=== PATIENT | female | born 1950 | race Asian ===

== ENCOUNTER 2023-06-15 14:02 | Inpatient (IN) | payer OTHER ==
[2023-06-15] VITALS (10 sets, daily range): BP systolic 119–143; BP diastolic 66–82; O2SAT 91–97
[~2023-06-15] VITALS: Ht 157.5 cm; Wt 54.0 kg
[2023-06-15] MEDS ORDERED: IV NS 0.9% 1,000 ML BAG IV ONE (14:30)
[2023-06-15] MEDS ORDERED: CEFTRIAXONE 1GM BAG (ER ONLY) 50 ML IV ONE (14:41)
[2023-06-15] MEDS ORDERED: TRIA1CAP20 PO (14:51)
[2023-06-15] MEDS ORDERED: PRAV10TA40 PO (14:51)
[2023-06-15] MEDS ORDERED: AMLO10TA4 PO (14:51)
[2023-06-15] MEDS ORDERED: GLIP5TAB13 PO (14:51)
[2023-06-15] MEDS ORDERED: CEFTRIAXONE 1GM BAG (ER ONLY) 1 GM/50 ML PIGGYBACK IV ONE (15:00)
[2023-06-15] MEDS ORDERED: AZITHROMYCIN 500 MG in IV D5W 250 ML IV ONE (15:00)
[2023-06-15 15:18] LABS: BASOPHILS % (AUTO) 0.2 % (0.0-2.0); HEMATOCRIT 28 % (33-45); HEMOGLOBIN 9.3 g/dL (11.5-14.8); LYMPHOCYTES # (AUTO) 0.7 K/uL (0.8-4.8); LYMPHOCYTES % (AUTO) 4.5 % (20.0-44.0); MEAN CORPUSCULAR HEMOGLOBIN 29 PG (26.0-33.0); MEAN CORPUSCULAR HGB CONC 33 g/dl (31.0-36.0); MEAN CORPUSCULAR VOLUME 90 fL (82-100); MONOCYTES # (AUTO) 0.8 K/uL (0.1-1.30); MONOCYTES % (AUTO) 5.4 % (2.0-12.0); NEUTROPHILS # (AUTO) 13.3 K/uL (1.8-8.9); NEUTROPHILS % (AUTO) 89.9 % (43.0-81.0); PLATELET COUNT (AUTO) 304 K/uL (150-450); RED BLOOD CELL COUNT(AUTO) 3.16 MIL/uL (4.0-5.2); RED CELL DISTRIBUTION WIDTH 12.7 % (11.5-15.0); WHITE BLOOD COUNT (AUTO) 14.8 K/uL (4.3-11.0)
[2023-06-15 15:32] LABS: INR 0.99 (0.91-1.10); PARTIAL THROMBOPLASTIN TIME 30.7 SEC (24.3-34.3); PROTHROMBIN TIME 10.5 SECS (9.2-11.1)
[2023-06-15 15:45] LABS: CALCIUM, SERUM 8.7 mg/dL (8.5-10.1); CARBON DIOXIDE 14 mmol/L (21-32); CHLORIDE 98 mmol/L (98-107); CREATININE 6.5 mg/dL (0.6-1.3); POTASSIUM 5.3 mmol/L (3.5-5.1); SODIUM SERUM 128 mmol/L (136-145); UREA NITROGEN, BLOOD 78 mg/dL (7-18)
[2023-06-15 15:57] LABS: ALANINE AMINOTRANSFERASE 15 U/L (12-78); ALKALINE PHOSPHATASE 131 U/L (46-116); ASPARTATE AMINOTRANSFERASE 17 U/L (15-37); BILIRUBIN,DIRECT 0.2 mg/dL (0.0-0.2); BILIRUBIN,TOTAL 0.7 mg/dL (0.2-1.0); GLUCOSE 591 mg/dL (74-106); TOTAL PROTEIN, SERUM 7.8 g/dL (6.4-8.2)
[2023-06-15] MEDS ORDERED: INSULIN REGULAR, HUMAN 100 UNIT/ML 10 ML VIAL IV ONE (16:30)
[2023-06-15] MEDS ORDERED: INSULIN REGULAR, HUMAN 100 UNIT/ML 10 ML VIAL ONE (16:39)
[2023-06-15] MEDS ORDERED: LEVOFLOXACIN 750 MG /D5W 150ML 150 ML IV SCH (17:00)
[2023-06-15] MEDS ORDERED: HEPARIN SODIUM, PORCINE 5000 UNITS/1 ML VIAL SQ SCH ×2 (17:00→21:00)
[2023-06-15] MEDS ORDERED: IV NS 0.9% 500 ML IV PRN (17:00)
[2023-06-15 17:09] LABS: ABG BASE EXCESS -15.8 mmol/L; ABG OXYGEN SATURATION 95.6 % (92.0-98.5); ABG PCO2 32.3 mmHg (35.0-45.0); ABG PH 7.169 (7.350-7.450); ABG PO2 98.9 mmHg (75.0-100.0); ABG TOTAL HEMOGLOBIN 8.3 G/dL (12.0-16.0); COHb 0.3 % (0.5-1.5); MetHb 0.2 % (0.0-1.5); O2Hb 95.1 % (94.0-97.0); SITE, ABG Right Radial
[2023-06-15] MEDS ORDERED: ACETAMINOPHEN 325 MG TABLET PO PRN (17:30)
[2023-06-15] MEDS ORDERED: BLOOD SUGAR DIAGNOSTIC 1 EACH STRIP VI SCH (17:30)
[2023-06-15] MEDS ORDERED: ONDANSETRON HCL/PF 4 MG/2 ML VIAL IVP PRN (17:30)
[2023-06-15] MEDS ORDERED: TEMAZEPAM 15 MG CAPSULE PO PRN (17:30)
[2023-06-15] MEDS ORDERED: MAG HYDROX/AL HYDROX/SIMETH 30 ML UDC PO PRN (17:30)
[2023-06-15] MEDS ORDERED: MAGNESIUM HYDROXIDE 30 ML UDC PO PRN (17:30)
[2023-06-15] MEDS ORDERED: Z GUARD REMEDY 4 OZ OINT TP PRN (17:30)
[2023-06-15] MEDS ORDERED: DEXTROSE 50%-WATER 50 ML DISP.SYRIN IV PRN (17:30)
[2023-06-15] MEDS ORDERED: INSULIN REGULAR, HUMAN 100 UNIT/ML 3 ML VIAL SQ PRN (17:30)
[2023-06-15] MEDS ORDERED: MORPHINE SULFATE INJ 2 MG/ML DISP.SYRIN IV PRN (17:30)
[2023-06-15] MEDS ORDERED: HYDROCODONE/APAP 5/325MG TABLET PO PRN (17:30)
[2023-06-15] MEDS: IV NS 0.9% 1,000 ML IV PRN ×2 (20:03→20:38)
[2023-06-15] MEDS ORDERED: DOXYCYCLINE 100 MG in IV D5W 100 ML IV SCH (21:00)
[2023-06-15] MEDS: CEFEPIME 1 GM in IV D5W 50 ML IV SCH (21:28)
[2023-06-15] MEDS: ATORVASTATIN 10 MG TABLET PO SCH (21:28)
[2023-06-15] MEDS: dexaMETHasone SOD PHOSPHATE 10 MG/ML VIAL IV SCH (21:51)
[2023-06-15] MEDS: PANTOPRAZOLE 40 MG VIAL IV SCH (21:51)
[2023-06-15] MEDS ORDERED: ALBUTEROL FS 2.5 MG/0.5 ML VIAL.NEB NEB PRN (22:30)
[2023-06-15] MEDS ORDERED: IPRATROPIUM NEB FS 0.5 MG/2.5 ML AMPUL.NEB NEB PRN (22:30)
[2023-06-15] MEDS: *INSULIN REGULAR(HUMULIN R)HUM 100 UNIT/ML VIAL SQ PRN (22:51)
[2023-06-15 23:25] LABS: CALCIUM, SERUM 8.1 mg/dL (8.5-10.1); CARBON DIOXIDE 13 mmol/L (21-32); CHLORIDE 100 mmol/L (98-107); CREATININE 6.5 mg/dL (0.6-1.3); POTASSIUM 5.8 mmol/L (3.5-5.1); SODIUM SERUM 128 mmol/L (136-145); UREA NITROGEN, BLOOD 76 mg/dL (7-18)
[2023-06-15] MEDS ORDERED: IV NS 0.9% 250 ML IV PRN (23:30)
[2023-06-15 23:38] LABS: GLUCOSE 633 mg/dL (74-106)
[2023-06-16] VITALS (29 sets, daily range): BP systolic 89–143; BP diastolic 47–88; TEMP 97.5–97.9; O2SAT 93–100
[2023-06-16] MEDS ORDERED: INSULIN REGULAR, HUMAN 100 UNIT in IV NS 0.9% 99 ML IV PRN ×2 (00:30)
[2023-06-16] MEDS: IV NS 0.9% 1,000 ML IV SCH ×3 (00:36→20:31)
[2023-06-16 00:44] LABS: ABG OXYGEN SATURATION 93.1 % (92.0-98.5); ABG PCO2 29.3 mmHg (35.0-45.0); ABG PH 7.235 (7.350-7.450); ABG PO2 73.5 mmHg (75.0-100.0); ABG TOTAL HEMOGLOBIN 9.3 G/dL (12.0-16.0); AaDO2 610.2 mmHg; COHb 0.3 % (0.5-1.5); MetHb 0.3 % (0.0-1.5); O2Hb 92.5 % (94.0-97.0); SITE, ABG Left Radial
[2023-06-16] MEDS: BLOOD SUGAR DIAGNOSTIC 1 EACH STRIP IN SCH ×23 (00:45→23:30)
[2023-06-16 03:08] LABS: BASOPHILS # (AUTO) 0.1 K/uL (0.0-0.2); BASOPHILS % (AUTO) 0.4 % (0.0-2.0); HEMATOCRIT 27 % (33-45); HEMOGLOBIN 8.7 g/dL (11.5-14.8); LYMPHOCYTES # (AUTO) 0.8 K/uL (0.8-4.8); LYMPHOCYTES % (AUTO) 3.9 % (20.0-44.0); MEAN CORPUSCULAR HEMOGLOBIN 29 PG (26.0-33.0); MEAN CORPUSCULAR HGB CONC 33 g/dl (31.0-36.0); MEAN CORPUSCULAR VOLUME 89 fL (82-100); MONOCYTES # (AUTO) 0.8 K/uL (0.1-1.30); MONOCYTES % (AUTO) 3.9 % (2.0-12.0); NEUTROPHILS # (AUTO) 18.4 K/uL (1.8-8.9); NEUTROPHILS % (AUTO) 91.8 % (43.0-81.0); PLATELET COUNT (AUTO) 327 K/uL (150-450); RED BLOOD CELL COUNT(AUTO) 3.03 MIL/uL (4.0-5.2); RED CELL DISTRIBUTION WIDTH 12.5 % (11.5-15.0); WHITE BLOOD COUNT (AUTO) 20.1 K/uL (4.3-11.0)
[2023-06-16 03:13] LABS: CALCIUM, SERUM 8.6 mg/dL (8.5-10.1); CARBON DIOXIDE 14 mmol/L (21-32); CHLORIDE 100 mmol/L (98-107); CREATININE 6.7 mg/dL (0.6-1.3); POTASSIUM 5.1 mmol/L (3.5-5.1); SODIUM SERUM 130 mmol/L (136-145)
[2023-06-16 03:14] LABS: GLUCOSE 519 mg/dL (74-106); MAGNESIUM 2.2 mg/dL (1.8-2.4)
[2023-06-16 03:15] LABS: UREA NITROGEN, BLOOD 81 mg/dL (7-18)
[2023-06-16 03:25] LABS: THYROID STIMULATING HORMONE 1.174 uIU/mL (0.358-3.74)
[2023-06-16] MEDS ORDERED: HEPARIN INFUSION/D5W 500 ML IV PRN (05:00)
[2023-06-16] MEDS ORDERED: HEPARIN SODIUM, PORCINE 5000 UNITS/1 ML VIAL IV ONE (05:00)
[2023-06-16 06:10] LABS: CALCIUM, SERUM 8.8 mg/dL (8.5-10.1); CARBON DIOXIDE 12 mmol/L (21-32); CHLORIDE 103 mmol/L (98-107); CREATININE 6.7 mg/dL (0.6-1.3); POTASSIUM 4.9 mmol/L (3.5-5.1); SODIUM SERUM 132 mmol/L (136-145)
[2023-06-16 06:18] LABS: GLUCOSE 389 mg/dL (74-106)
[2023-06-16 06:21] LABS: UREA NITROGEN, BLOOD 80 mg/dL (7-18)
[2023-06-16 06:28] LABS: BAND % (MANUAL) 3 % (0.0-5.0); LYMPHOCYTES % (MANUAL) 7 % (16-48); MONOCYTES % (MANUAL) 5 % (0-11.0); NEUTROPHILS % (MANUAL) 85 (42-76); PLATELET ESTIMATE ADEQUATE
[2023-06-16] MEDS: dexaMETHasone SOD PHOSPHATE 10 MG/ML VIAL IV SCH (08:27)
[2023-06-16] MEDS: PANTOPRAZOLE 40 MG VIAL IV SCH (08:27)
[2023-06-16 08:29] LABS: ABG BASE EXCESS -11.8 mmol/L; ABG OXYGEN SATURATION 91.4 % (92.0-98.5); ABG PCO2 26.2 mmHg (35.0-45.0); ABG PH 7.315 (7.350-7.450); ABG PO2 62.6 mmHg (75.0-100.0); ABG TOTAL HEMOGLOBIN 9.1 G/dL (12.0-16.0); AaDO2 480.3 mmHg; COHb 0.3 % (0.5-1.5); MetHb 0.3 % (0.0-1.5); O2Hb 90.9 % (94.0-97.0); SITE, ABG Right Radial; VENT MODE, BG BIPAP 15/5
[2023-06-16] MEDS: ASPIRIN 81 MG TAB.CHEW PO SCH (09:53)
[2023-06-16] MEDS: NITROGLYCERIN 30 GM TUBE TP SCH ×2 (09:54→20:29)
[2023-06-16] MEDS: AZITHROMYCIN 500 MG in IV D5W 250 ML IV SCH (14:27)
[2023-06-16] MEDS ORDERED: CEFTRIAXONE 1 G in IV D5W 50 ML IV SCH (15:00)
[2023-06-16 19:04] LABS: CALCIUM, SERUM 9.1 mg/dL (8.5-10.1); CARBON DIOXIDE 11 mmol/L (21-32); CHLORIDE 105 mmol/L (98-107); CREATININE 6.8 mg/dL (0.6-1.3); GLUCOSE 191 mg/dL (74-106); POTASSIUM 5.5 mmol/L (3.5-5.1); SODIUM SERUM 133 mmol/L (136-145)
[2023-06-16 19:10] LABS: UREA NITROGEN, BLOOD 83 mg/dL (7-18)
[2023-06-16 19:12] LABS: CREATININE, URINE 106.4 MG/DL (30.0-125.0); URINE TOTAL PROTEIN 193.1 mg/dL (0-11.9)
[2023-06-16 19:14] LABS: APPEARANCE,URINE SLIGHTLY CLOUDY (CLEAR); BILIRUBIN,URINE NEGATIVE (NEGATIVE); BLOOD, URINE 2+ Ery/uL (NEGATIVE); COLOR,URINE YELLOW (YELLOW); KETONES,URINE NEGATIVE (NEGATIVE); LEUKOCYTE ESTERASE ,URINE 3+ (NEGATIVE); NITRITE, URINE NEGATIVE (NEGATIVE); PH,URINE 5.5 (5.0-8.0); PROTEIN,URINE 2+ mg/dl (NEGATIVE); UGLUCOSE TRACE mg/dL (NEGATIVE); UROBILINOGEN,URINE 0.2 EU/dL (0.2)
[2023-06-16 19:27] LABS: ADD URINE CULTURE YES; BACTERIA,URINE 1+ /HPF (None Seen); RBC,URINE 21-50 /HPF (0-2); SQUAMOUS EPITHELIAL CELL,UR Few /HPF (None Seen); WBC,URINE TOO NUMEROUS TO COUN /HPF (0-3)
[2023-06-16] MEDS: CEFEPIME 1 GM in IV D5W 50 ML IV SCH (20:28)
[2023-06-16] MEDS: ATORVASTATIN 10 MG TABLET PO SCH (21:53)
[2023-06-16 22:32] LABS: CALCIUM, SERUM 9.1 mg/dL (8.5-10.1); CARBON DIOXIDE 12 mmol/L (21-32); CHLORIDE 105 mmol/L (98-107); CREATININE 6.9 mg/dL (0.6-1.3); GLUCOSE 202 mg/dL (74-106); POTASSIUM 5.4 mmol/L (3.5-5.1); SODIUM SERUM 135 mmol/L (136-145)
[2023-06-16 23:00] LABS: UREA NITROGEN, BLOOD 85 mg/dL (7-18)
[2023-06-17] VITALS (42 sets, daily range): BP systolic 67–129; BP diastolic 35–112; TEMP 97.8–98.5; O2SAT 92–99
[2023-06-17] MEDS: BLOOD SUGAR DIAGNOSTIC 1 EACH STRIP IN SCH ×16 (00:11→23:38)
[2023-06-17 02:58] LABS: CALCIUM, SERUM 8.9 mg/dL (8.5-10.1); CARBON DIOXIDE 12 mmol/L (21-32); CHLORIDE 106 mmol/L (98-107); CREATININE 7.1 mg/dL (0.6-1.3); GLUCOSE 212 mg/dL (74-106); POTASSIUM 5.3 mmol/L (3.5-5.1); SODIUM SERUM 135 mmol/L (136-145)
[2023-06-17 03:39] LABS: UREA NITROGEN, BLOOD 85 mg/dL (7-18)
[2023-06-17 04:25] LABS: HEMATOCRIT 23 % (33-45); HEMOGLOBIN 7.5 g/dL (11.5-14.8); LYMPHOCYTES # (AUTO) 0.9 K/uL (0.8-4.8); MEAN CORPUSCULAR HEMOGLOBIN 29 PG (26.0-33.0); MEAN CORPUSCULAR HGB CONC 33 g/dl (31.0-36.0); MEAN CORPUSCULAR VOLUME 88 fL (82-100); MONOCYTES # (AUTO) 1.6 K/uL (0.1-1.30); MONOCYTES % (AUTO) 6.7 % (2.0-12.0); NEUTROPHILS # (AUTO) 20.7 K/uL (1.8-8.9); NEUTROPHILS % (AUTO) 89.3 % (43.0-81.0); PLATELET COUNT (AUTO) 335 K/uL (150-450); RED BLOOD CELL COUNT(AUTO) 2.59 MIL/uL (4.0-5.2); RED CELL DISTRIBUTION WIDTH 12.9 % (11.5-15.0); WHITE BLOOD COUNT (AUTO) 23.2 K/uL (4.3-11.0)
[2023-06-17 05:00] LABS: ALANINE AMINOTRANSFERASE 31 U/L (12-78); ALBUMIN 2.3 g/dL (3.4-5.0); ALKALINE PHOSPHATASE 109 U/L (46-116); ASPARTATE AMINOTRANSFERASE 19 U/L (15-37); BILIRUBIN,TOTAL 0.4 mg/dL (0.2-1.0); CALCIUM, SERUM 8.9 mg/dL (8.5-10.1); CARBON DIOXIDE 11 mmol/L (21-32); CHLORIDE 105 mmol/L (98-107); GLUCOSE 215 mg/dL (74-106); MAGNESIUM 2.1 mg/dL (1.8-2.4); PHOSPHORUS 6.3 mg/dL (2.5-4.9); POTASSIUM 5.1 mmol/L (3.5-5.1); SODIUM SERUM 135 mmol/L (136-145); TOTAL PROTEIN, SERUM 6.6 g/dL (6.4-8.2)
[2023-06-17 05:10] LABS: UREA NITROGEN, BLOOD 89 mg/dL (7-18)
[2023-06-17] MEDS: IV NS 0.9% 1,000 ML IV SCH (06:00)
[2023-06-17 06:52] LABS: LYMPHOCYTES % (MANUAL) 4 % (16-48); MONOCYTES % (MANUAL) 9 % (0-11.0); NEUTROPHILS % (MANUAL) 87 (42-76)
[2023-06-17 06:53] LABS: PLATELET ESTIMATE ADEQUATE
[2023-06-17] MEDS ORDERED: Sodium Bicarbonate 150 MEQ in IV D5W 1,000 ML IV SCH (07:00)
[2023-06-17] MEDS: Sodium Bicarbonate 150 MEQ in IV D5W 1,000 ML IV SCH (08:54)
[2023-06-17] MEDS: PANTOPRAZOLE 40 MG TABLET.DR PO SCH (09:00)
[2023-06-17] MEDS: HEPARIN SODIUM, PORCINE 5000 UNITS/1 ML VIAL SQ SCH ×2 (09:00→22:44)
[2023-06-17] MEDS: ASPIRIN 81 MG TAB.CHEW PO SCH (09:00)
[2023-06-17] MEDS: NITROGLYCERIN 30 GM TUBE TP SCH ×2 (09:25→21:00)
[2023-06-17 09:53] LABS: ABG BASE EXCESS -16.7 mmol/L; ABG OXYGEN SATURATION 92.1 % (92.0-98.5); ABG PCO2 22.7 mmHg (35.0-45.0); ABG PH 7.228 (7.350-7.450); ABG PO2 74.9 mmHg (75.0-100.0); ABG TOTAL HEMOGLOBIN 8.6 G/dL (12.0-16.0); AaDO2 543.5 mmHg; MetHb 0.3 % (0.0-1.5); O2Hb 91.8 % (94.0-97.0); SITE, ABG Right Radial; VENT MODE, BG BIPAP 18/8
[2023-06-17] MEDS ORDERED: SODIUM BICARBONATE SYR 50 MEQ/50 ML DISP.SYRIN IV ONE (13:00)
[2023-06-17] MEDS ORDERED: DEXTROSE 50%-WATER 50 ML DISP.SYRIN IV PRN (14:00)
[2023-06-17 14:22] LABS: ABG BASE EXCESS -10.5 mmol/L; ABG OXYGEN SATURATION 90.5 % (92.0-98.5); ABG PCO2 21.9 mmHg (35.0-45.0); ABG PH 7.393 (7.350-7.450); ABG PO2 61.6 mmHg (75.0-100.0); ABG TOTAL HEMOGLOBIN 8.4 G/dL (12.0-16.0); AaDO2 629.5 mmHg; COHb 0.1 % (0.5-1.5); MetHb 0.3 % (0.0-1.5); O2Hb 90.1 % (94.0-97.0); SITE, ABG Right Radial; VENT MODE, BG BIPAP 18/8
[2023-06-17] MEDS: AZITHROMYCIN 500 MG in IV D5W 250 ML IV SCH ×2 (14:59→17:19)
[2023-06-17 16:41] LABS: ABG BASE EXCESS -9.7 mmol/L; ABG OXYGEN SATURATION 93.1 % (92.0-98.5); ABG PCO2 18.9 mmHg (35.0-45.0); ABG PH 7.452 (7.350-7.450); ABG PO2 68.9 mmHg (75.0-100.0); ABG TOTAL HEMOGLOBIN 8.1 G/dL (12.0-16.0); AaDO2 625.2 mmHg; COHb 0.6 % (0.5-1.5); O2Hb 92.5 % (94.0-97.0); SITE, ABG Right Radial; VENT MODE, BG BIPAP 20/10
[2023-06-17] MEDS: INSULIN REGULAR, HUMAN 100 UNIT/ML 3 ML VIAL SQ PRN (18:57)
[2023-06-17] MEDS: PHENYLEPHRINE 100 MG in IV NS 0.9% 240 ML IV PRN (20:35)
[2023-06-17] MEDS ORDERED: IV NS 0.9% 500 ML BAG IV ONE (22:00)
[2023-06-17] MEDS: ATORVASTATIN 10 MG TABLET PO SCH (22:00)
[2023-06-17] MEDS: CEFEPIME 1 GM in IV D5W 50 ML IV SCH (22:42)
[2023-06-17] MEDS: PROPOFOL 100 ML IV PRN (23:25)
[2023-06-17] MEDS: *INSULIN REGULAR(HUMULIN R)HUM 100 UNIT/ML VIAL SQ PRN (23:40)
[2023-06-17 23:52] LABS: ABG BASE EXCESS -21.7 mmol/L; ABG OXYGEN SATURATION 97.4 % (92.0-98.5); ABG PCO2 21.6 mmHg (35.0-45.0); ABG PH 7.089 (7.350-7.450); ABG PO2 162.4 mmHg (75.0-100.0); ABG TOTAL HEMOGLOBIN 8.5 G/dL (12.0-16.0); COHb 0.3 % (0.5-1.5); MetHb 0.3 % (0.0-1.5); O2Hb 96.8 % (94.0-97.0); SITE, ABG Right Radial
[2023-06-18] VITALS (99 sets, daily range): BP systolic 76–134; BP diastolic 54–103; TEMP 96.5–98.2; O2SAT 80–100
[2023-06-18 00:13] LABS: ABG BASE EXCESS -25.4 mmol/L; ABG OXYGEN SATURATION 96.3 % (92.0-98.5); ABG PCO2 26.5 mmHg (35.0-45.0); ABG PH 6.925 (7.350-7.450); ABG PO2 140.4 mmHg (75.0-100.0); ABG TOTAL HEMOGLOBIN 8.2 G/dL (12.0-16.0); AaDO2 546.1 mmHg; COHb 0.3 % (0.5-1.5); MetHb 0.1 % (0.0-1.5); O2Hb 95.9 % (94.0-97.0); PEEP,BG 0 cm H2O; SITE, ABG Right Brachial; VT, ABG 500 mL
[2023-06-18] MEDS ORDERED: IV NS 0.9% 500 ML BAG IV ONE (00:30)
[2023-06-18] MEDS ORDERED: NOREPINEPHRINE 4 MG/4 ML AMPUL IV ONE (00:37)
[2023-06-18] MEDS: NOREPINEPHRINE 32 MG in IV NS 0.9% 218 ML IV PRN ×2 (00:45→20:04)
[2023-06-18] MEDS: HYDROCORTISONE SOD SUCCINATE 100 MG/2 ML VIAL IV SCH ×3 (00:52→16:59)
[2023-06-18 05:08] LABS: CALCIUM, SERUM 7.8 mg/dL (8.5-10.1); CHLORIDE 103 mmol/L (98-107); CREATININE 7.4 mg/dL (0.6-1.3); GLUCOSE 278 mg/dL (74-106); POTASSIUM 5.5 mmol/L (3.5-5.1); SODIUM SERUM 140 mmol/L (136-145)
[2023-06-18] MEDS: BLOOD SUGAR DIAGNOSTIC 1 EACH STRIP IN SCH ×6 (05:14→23:20)
[2023-06-18] MEDS: *INSULIN REGULAR(HUMULIN R)HUM 100 UNIT/ML VIAL SQ PRN (05:18)
[2023-06-18 05:27] LABS: BASOPHILS % (AUTO) 0.1 % (0.0-2.0); HEMATOCRIT 22 % (33-45); LYMPHOCYTES # (AUTO) 0.6 K/uL (0.8-4.8); LYMPHOCYTES % (AUTO) 3.9 % (20.0-44.0); MEAN CORPUSCULAR HEMOGLOBIN 29 PG (26.0-33.0); MEAN CORPUSCULAR HGB CONC 32 g/dl (31.0-36.0); MEAN CORPUSCULAR VOLUME 92 fL (82-100); MONOCYTES # (AUTO) 0.9 K/uL (0.1-1.30); MONOCYTES % (AUTO) 5.2 % (2.0-12.0); NEUTROPHILS # (AUTO) 15.1 K/uL (1.8-8.9); NEUTROPHILS % (AUTO) 90.8 % (43.0-81.0); PLATELET COUNT (AUTO) 309 K/uL (150-450); RED BLOOD CELL COUNT(AUTO) 2.39 MIL/uL (4.0-5.2); RED CELL DISTRIBUTION WIDTH 13.8 % (11.5-15.0); WHITE BLOOD COUNT (AUTO) 16.6 K/uL (4.3-11.0)
[2023-06-18 05:35] LABS: HEMOGLOBIN 6.9 g/dL (11.5-14.8)
[2023-06-18 05:36] LABS: CARBON DIOXIDE 9 mmol/L (21-32); UREA NITROGEN, BLOOD 84 mg/dL (7-18)
[2023-06-18 05:52] LABS: ABG BASE EXCESS -20.7 mmol/L; ABG OXYGEN SATURATION 97.2 % (92.0-98.5); ABG PCO2 23.7 mmHg (35.0-45.0); ABG PO2 139.5 mmHg (75.0-100.0); ABG TOTAL HEMOGLOBIN 7.4 G/dL (12.0-16.0); AaDO2 549.8 mmHg; COHb 0.3 % (0.5-1.5); MetHb 0.1 % (0.0-1.5); O2Hb 96.8 % (94.0-97.0); PEEP,BG 0 cm H2O; SITE, ABG Left Radial; VT, ABG 500 mL
[2023-06-18] MEDS: SODIUM BICARBONATE SYR 50 MEQ/50 ML DISP.SYRIN IV ONE ×2 (06:05→06:36)
[2023-06-18] MEDS: PROPOFOL 100 ML IV PRN ×2 (06:12→19:42)
[2023-06-18] MEDS: PHENYLEPHRINE 100 MG in IV NS 0.9% 240 ML IV PRN ×2 (06:49→17:00)
[2023-06-18] MEDS: Sodium Bicarbonate 150 MEQ in IV D5W 1,000 ML IV SCH (07:13)
[2023-06-18 07:50] LABS: BAND % (MANUAL) 10 % (0.0-5.0); LYMPHOCYTES % (MANUAL) 7 % (16-48); MONOCYTES % (MANUAL) 7 % (0-11.0); MYELOCYTES % 2 % (0-0); NEUTROPHILS % (MANUAL) 74 (42-76)
[2023-06-18 07:51] LABS: PLATELET ESTIMATE ADEQUATE
[2023-06-18] MEDS: NITROGLYCERIN 30 GM TUBE TP SCH ×2 (09:00→20:56)
[2023-06-18] MEDS: HEPARIN SODIUM, PORCINE 5000 UNITS/1 ML VIAL SQ SCH ×2 (09:00→21:17)
[2023-06-18] MEDS: ASPIRIN 81 MG TAB.CHEW PO SCH (09:12)
[2023-06-18] MEDS: PANTOPRAZOLE 40 MG TABLET.DR PO SCH (09:13)
[2023-06-18] MEDS ORDERED: ETOMIDATE 2 MG/ML VIAL IV ONE (10:39)
[2023-06-18] MEDS ORDERED: SUCCINYLCHOLINE CHLORIDE 20 MG/ML VIAL IV ONE (10:39)
[2023-06-18] MEDS: INSULIN REGULAR, HUMAN 100 UNIT/ML 3 ML VIAL SQ PRN (12:08)
[2023-06-18 14:07] LABS: HEPATITIS B SURFACE AB Non Reactive (.)
[2023-06-18] MEDS ORDERED: MAG HYDROX/AL HYDROX/SIMETH 30 ML UDC GT PRN (14:35)
[2023-06-18] MEDS ORDERED: HYDROCODONE/APAP 5/325MG TABLET GT PRN (14:35)
[2023-06-18] MEDS ORDERED: MAGNESIUM HYDROXIDE 30 ML UDC GT PRN (14:35)
[2023-06-18] MEDS ORDERED: ACETAMINOPHEN 650 MG/20.3 ML UDC GT PRN (15:00)
[2023-06-18] MEDS ORDERED: INSULIN REGULAR, HUMAN 100 UNIT in IV NS 0.9% 99 ML IV PRN ×2 (15:00)
[2023-06-18] MEDS: AZITHROMYCIN 500 MG in IV D5W 250 ML IV SCH ×2 (15:00→18:17)
[2023-06-18] MEDS: NEPRO 1,000 ML BOTTLE GT PRN (18:45)
[2023-06-18] MEDS: CEFEPIME 1 GM in IV D5W 50 ML IV SCH (21:15)
[2023-06-18] MEDS: ATORVASTATIN 10 MG TABLET GT SCH (21:15)
[2023-06-18] MEDS ORDERED: Sodium Bicarbonate 150 MEQ in IV D5W 1,000 ML IV SCH (21:30)
[2023-06-19] VITALS (85 sets, daily range): BP systolic 81–140; BP diastolic 57–106; TEMP 97.8–99.7; O2SAT 89–100
[2023-06-19] MEDS: BLOOD SUGAR DIAGNOSTIC 1 EACH STRIP IN SCH ×18 (01:27→17:12)
[2023-06-19] MEDS: HYDROCORTISONE SOD SUCCINATE 100 MG/2 ML VIAL IV SCH ×3 (01:27→16:26)
[2023-06-19 01:34] LABS: CALCIUM, SERUM 7.3 mg/dL (8.5-10.1); CARBON DIOXIDE 17 mmol/L (21-32); CHLORIDE 102 mmol/L (98-107); CREATININE 5.6 mg/dL (0.6-1.3); GLUCOSE 222 mg/dL (74-106); POTASSIUM 4.6 mmol/L (3.5-5.1); SODIUM SERUM 137 mmol/L (136-145); UREA NITROGEN, BLOOD 68 mg/dL (7-18)
[2023-06-19] MEDS: PHENYLEPHRINE 100 MG in IV NS 0.9% 240 ML IV PRN ×2 (01:52→09:06)
[2023-06-19] MEDS: PROPOFOL 100 ML IV PRN ×2 (04:39→16:27)
[2023-06-19 06:56] LABS: BASOPHILS % (AUTO) 0.2 % (0.0-2.0); HEMATOCRIT 27 % (33-45); HEMOGLOBIN 8.9 g/dL (11.5-14.8); LYMPHOCYTES % (AUTO) 5.7 % (20.0-44.0); MEAN CORPUSCULAR HEMOGLOBIN 29 PG (26.0-33.0); MEAN CORPUSCULAR HGB CONC 33 g/dl (31.0-36.0); MEAN CORPUSCULAR VOLUME 89 fL (82-100); MONOCYTES # (AUTO) 1.4 K/uL (0.1-1.30); MONOCYTES % (AUTO) 7.8 % (2.0-12.0); NEUTROPHILS # (AUTO) 15.5 K/uL (1.8-8.9); NEUTROPHILS % (AUTO) 86.3 % (43.0-81.0); PLATELET COUNT (AUTO) 162 K/uL (150-450); RED BLOOD CELL COUNT(AUTO) 3.04 MIL/uL (4.0-5.2); RED CELL DISTRIBUTION WIDTH 13.5 % (11.5-15.0)
[2023-06-19 07:24] LABS: CALCIUM, SERUM 7.2 mg/dL (8.5-10.1); CARBON DIOXIDE 19 mmol/L (21-32); CHLORIDE 100 mmol/L (98-107); CREATININE 5.7 mg/dL (0.6-1.3); GLUCOSE 255 mg/dL (74-106); POTASSIUM 4.6 mmol/L (3.5-5.1); SODIUM SERUM 137 mmol/L (136-145); UREA NITROGEN, BLOOD 68 mg/dL (7-18)
[2023-06-19] MEDS: ASPIRIN 81 MG TAB.CHEW GT SCH (09:04)
[2023-06-19] MEDS: NITROGLYCERIN 30 GM TUBE TP SCH ×2 (09:08→21:00)
[2023-06-19] MEDS: PANTOPRAZOLE 40 MG/PACK PACK GT SCH (09:10)
[2023-06-19 09:18] LABS: CALCIUM, SERUM 7.3 mg/dL (8.5-10.1); CARBON DIOXIDE 19 mmol/L (21-32); CHLORIDE 100 mmol/L (98-107); GLUCOSE 285 mg/dL (74-106); POTASSIUM 4.6 mmol/L (3.5-5.1); SODIUM SERUM 136 mmol/L (136-145); UREA NITROGEN, BLOOD 72 mg/dL (7-18)
[2023-06-19] MEDS: HEPARIN SODIUM, PORCINE 5000 UNITS/1 ML VIAL SQ SCH ×2 (09:24→21:08)
[2023-06-19 09:44] LABS: BAND % (MANUAL) 5 % (0.0-5.0); LYMPHOCYTES % (MANUAL) 6 % (16-48); MONOCYTES % (MANUAL) 7 % (0-11.0); MYELOCYTES % 1 % (0-0); NEUTROPHILS % (MANUAL) 81 (42-76)
[2023-06-19 09:47] LABS: ANISOCYTOSIS 1+; OVALOCYTES OCC; PLATELET ESTIMATE ADEQUATE; TEAR DROP CELLS 1+
[2023-06-19] MEDS: DIGOXIN INJ 0.5 MG/2 ML AMPUL IV SCH ×2 (11:07→17:12)
[2023-06-19] MEDS: Sodium Bicarbonate 150 MEQ in IV D5W 1,000 ML IV SCH (14:10)
[2023-06-19] MEDS: AZITHROMYCIN 500 MG in IV D5W 250 ML IV SCH (14:13)
[2023-06-19] MEDS: CEFEPIME 1 GM in IV D5W 50 ML IV SCH (21:00)
[2023-06-19] MEDS: ATORVASTATIN 10 MG TABLET GT SCH (21:09)
[2023-06-20] VITALS (37 sets, daily range): BP systolic 92–143; BP diastolic 54–86; TEMP 98.5–99; O2SAT 98–100
[2023-06-20] MEDS: HYDROCORTISONE SOD SUCCINATE 100 MG/2 ML VIAL IV SCH ×3 (00:20→16:21)
[2023-06-20] MEDS: BLOOD SUGAR DIAGNOSTIC 1 EACH STRIP IN SCH ×5 (00:20→23:31)
[2023-06-20] MEDS: DIGOXIN INJ 0.5 MG/2 ML AMPUL IV SCH (00:21)
[2023-06-20] MEDS: INSULIN REGULAR, HUMAN 100 UNIT/ML 3 ML VIAL SQ PRN ×5 (00:24→23:33)
[2023-06-20] MEDS: Sodium Bicarbonate 150 MEQ in IV D5W 1,000 ML IV SCH (05:01)
[2023-06-20 05:54] LABS: BASOPHILS % (AUTO) 0.1 % (0.0-2.0); EOSINOPHILS % (AUTO) 0.1 % (0.0-6.0); HEMATOCRIT 25 % (33-45); HEMOGLOBIN 8.3 g/dL (11.5-14.8); LYMPHOCYTES # (AUTO) 0.7 K/uL (0.8-4.8); LYMPHOCYTES % (AUTO) 3.7 % (20.0-44.0); MEAN CORPUSCULAR HEMOGLOBIN 30 PG (26.0-33.0); MEAN CORPUSCULAR HGB CONC 33 g/dl (31.0-36.0); MEAN CORPUSCULAR VOLUME 89 fL (82-100); MONOCYTES # (AUTO) 1.2 K/uL (0.1-1.30); MONOCYTES % (AUTO) 6.3 % (2.0-12.0); NEUTROPHILS # (AUTO) 17.7 K/uL (1.8-8.9); NEUTROPHILS % (AUTO) 89.8 % (43.0-81.0); PLATELET COUNT (AUTO) 91 K/uL (150-450); RED BLOOD CELL COUNT(AUTO) 2.79 MIL/uL (4.0-5.2); RED CELL DISTRIBUTION WIDTH 13.3 % (11.5-15.0); WHITE BLOOD COUNT (AUTO) 19.7 K/uL (4.3-11.0)
[2023-06-20] MEDS: PROPOFOL 100 ML IV PRN ×2 (06:00→17:47)
[2023-06-20] MEDS: NEPRO 1,000 ML BOTTLE GT PRN (06:00)
[2023-06-20 08:21] LABS: CALCIUM, SERUM 7.7 mg/dL (8.5-10.1); CARBON DIOXIDE 24 mmol/L (21-32); CHLORIDE 101 mmol/L (98-107); CREATININE 5.5 mg/dL (0.6-1.3); POTASSIUM 4.2 mmol/L (3.5-5.1); SODIUM SERUM 136 mmol/L (136-145); UREA NITROGEN, BLOOD 74 mg/dL (7-18)
[2023-06-20 08:36] LABS: GLUCOSE 435 mg/dL (74-106)
[2023-06-20] MEDS: Sodium Bicarbonate 50 MEQ in IV NS 0.9% 1,000 ML IV SCH ×2 (09:10→23:12)
[2023-06-20] MEDS: ASPIRIN 81 MG TAB.CHEW GT SCH (09:51)
[2023-06-20] MEDS: PANTOPRAZOLE 40 MG/PACK PACK GT SCH (09:51)
[2023-06-20] MEDS: HEPARIN SODIUM, PORCINE 5000 UNITS/1 ML VIAL SQ SCH ×2 (09:53→21:33)
[2023-06-20] MEDS: NITROGLYCERIN 30 GM TUBE TP SCH ×2 (09:54→21:15)
[2023-06-20] MEDS: INSULIN GLARGINE, 100 UNIT/ML CARTRIDGE SQ SCH ×2 (10:02→21:33)
[2023-06-20] MEDS ORDERED: ALTEPLASE CATHFLO 2 MG/VIAL XX ONE ×3 (11:00→11:30)
[2023-06-20 11:55] LABS: BAND % (MANUAL) 10 % (0.0-5.0); LYMPHOCYTES % (MANUAL) 6 % (16-48); METAMYELOCYTES % 1 % (0-0); MONOCYTES % (MANUAL) 9 % (0-11.0); NEUTROPHILS % (MANUAL) 74 (42-76)
[2023-06-20 11:58] LABS: PLATELET ESTIMATE DECREASED
[2023-06-20 11:59] LABS: ANISOCYTOSIS 1+
[2023-06-20 12:00] LABS: OVALOCYTES 1+
[2023-06-20] MEDS: CEFEPIME 1 GM in IV D5W 50 ML IV SCH (21:14)
[2023-06-20] MEDS: ATORVASTATIN 10 MG TABLET GT SCH (21:15)
[2023-06-21] VITALS (35 sets, daily range): BP systolic 123–154; BP diastolic 56–90; TEMP 98.3–98.9; O2SAT 95–100
[2023-06-21] MEDS: HYDROCORTISONE SOD SUCCINATE 100 MG/2 ML VIAL IV SCH ×3 (01:07→16:14)
[2023-06-21] MEDS: PROPOFOL 100 ML IV PRN (05:22)
[2023-06-21] MEDS: BLOOD SUGAR DIAGNOSTIC 1 EACH STRIP IN SCH ×4 (05:50→23:20)
[2023-06-21] MEDS: INSULIN REGULAR, HUMAN 100 UNIT/ML 3 ML VIAL SQ PRN ×3 (05:52→23:26)
[2023-06-21 06:04] LABS: BASOPHILS # (AUTO) 0.2 K/uL (0.0-0.2); BASOPHILS % (AUTO) 0.7 % (0.0-2.0); EOSINOPHILS % (AUTO) 0.1 % (0.0-6.0); HEMATOCRIT 27 % (33-45); HEMOGLOBIN 8.7 g/dL (11.5-14.8); LYMPHOCYTES # (AUTO) 1.2 K/uL (0.8-4.8); LYMPHOCYTES % (AUTO) 4.5 % (20.0-44.0); MEAN CORPUSCULAR HEMOGLOBIN 29 PG (26.0-33.0); MEAN CORPUSCULAR HGB CONC 32 g/dl (31.0-36.0); MEAN CORPUSCULAR VOLUME 89 fL (82-100); MONOCYTES # (AUTO) 1.8 K/uL (0.1-1.30); MONOCYTES % (AUTO) 6.6 % (2.0-12.0); NEUTROPHILS # (AUTO) 24.5 K/uL (1.8-8.9); NEUTROPHILS % (AUTO) 88.1 % (43.0-81.0); PLATELET COUNT (AUTO) 87 K/uL (150-450); RED BLOOD CELL COUNT(AUTO) 3.01 MIL/uL (4.0-5.2); RED CELL DISTRIBUTION WIDTH 13.1 % (11.5-15.0); WHITE BLOOD COUNT (AUTO) 27.8 K/uL (4.3-11.0)
[2023-06-21 06:17] LABS: CALCIUM, SERUM 7.8 mg/dL (8.5-10.1); CARBON DIOXIDE 24 mmol/L (21-32); CHLORIDE 107 mmol/L (98-107); CREATININE 5.1 mg/dL (0.6-1.3); GLUCOSE 186 mg/dL (74-106); POTASSIUM 4.1 mmol/L (3.5-5.1); SODIUM SERUM 141 mmol/L (136-145); UREA NITROGEN, BLOOD 75 mg/dL (7-18)
[2023-06-21 07:37] LABS: BAND % (MANUAL) 3 % (0.0-5.0); LYMPHOCYTES % (MANUAL) 4 % (16-48); MONOCYTES % (MANUAL) 5 % (0-11.0); MYELOCYTES % 4 % (0-0); NEUTROPHILS % (MANUAL) 84 (42-76)
[2023-06-21 07:38] LABS: PLATELET ESTIMATE DECREASED
[2023-06-21] MEDS: PANTOPRAZOLE 40 MG/PACK PACK GT SCH (08:34)
[2023-06-21] MEDS: ASPIRIN 81 MG TAB.CHEW GT SCH (08:34)
[2023-06-21] MEDS: INSULIN GLARGINE, 100 UNIT/ML CARTRIDGE SQ SCH ×2 (08:45→21:14)
[2023-06-21] MEDS: NITROGLYCERIN 30 GM TUBE TP SCH ×2 (08:45→21:13)
[2023-06-21] MEDS: HEPARIN SODIUM, PORCINE 5000 UNITS/1 ML VIAL SQ SCH (08:46)
[2023-06-21 08:54] LABS: ABG BASE EXCESS 1.2 mmol/L; ABG OXYGEN SATURATION 93.9 % (92.0-98.5); ABG PCO2 31.4 mmHg (35.0-45.0); ABG PH 7.501 (7.350-7.450); ABG PO2 71.2 mmHg (75.0-100.0); ABG TOTAL HEMOGLOBIN 9.9 G/dL (12.0-16.0); AaDO2 177.9 mmHg; COHb 0.3 % (0.5-1.5); MetHb 0.1 % (0.0-1.5); O2Hb 93.5 % (94.0-97.0); SITE, ABG Right Radial
[2023-06-21] MEDS ORDERED: NOREPINEPHRINE 8 MG in IV NS 0.9% 250ML IV PRN (09:30)
[2023-06-21] MEDS: NEPRO 1,000 ML BOTTLE GT PRN (13:26)
[2023-06-21] MEDS: Sodium Bicarbonate 50 MEQ in IV NS 0.9% 1,000 ML IV SCH (13:51)
[2023-06-21] MEDS: ATORVASTATIN 10 MG TABLET GT SCH (21:13)
[2023-06-21] MEDS: CEFEPIME 1 GM in IV D5W 50 ML IV SCH (21:15)
[2023-06-22] VITALS (27 sets, daily range): BP systolic 92–164; BP diastolic 48–117; TEMP 98.2–99; O2SAT 88–99
[2023-06-22] MEDS: DILTIAZEM HCL 50 MG IV IV PRN (02:54)
[2023-06-22 05:12] LABS: CALCIUM, SERUM 8.1 mg/dL (8.5-10.1); CARBON DIOXIDE 22 mmol/L (21-32); CHLORIDE 106 mmol/L (98-107); CREATININE 6.3 mg/dL (0.6-1.3); GLUCOSE 260 mg/dL (74-106); SODIUM SERUM 142 mmol/L (136-145)
[2023-06-22 05:15] LABS: BASOPHILS # (AUTO) 0.1 K/uL (0.0-0.2); BASOPHILS % (AUTO) 0.1 % (0.0-2.0); HEMATOCRIT 32 % (33-45); HEMOGLOBIN 10.1 g/dL (11.5-14.8); LYMPHOCYTES # (AUTO) 1.2 K/uL (0.8-4.8); LYMPHOCYTES % (AUTO) 2.7 % (20.0-44.0); MEAN CORPUSCULAR HEMOGLOBIN 29 PG (26.0-33.0); MEAN CORPUSCULAR HGB CONC 32 g/dl (31.0-36.0); MEAN CORPUSCULAR VOLUME 90 fL (82-100); MONOCYTES # (AUTO) 3.5 K/uL (0.1-1.30); MONOCYTES % (AUTO) 8.3 % (2.0-12.0); NEUTROPHILS # (AUTO) 37.8 K/uL (1.8-8.9); NEUTROPHILS % (AUTO) 88.9 % (43.0-81.0); PLATELET COUNT (AUTO) 121 K/uL (150-450); RED BLOOD CELL COUNT(AUTO) 3.51 MIL/uL (4.0-5.2); RED CELL DISTRIBUTION WIDTH 13.3 % (11.5-15.0)
[2023-06-22 05:17] LABS: WHITE BLOOD COUNT (AUTO) 42.6 K/uL (4.3-11.0)
[2023-06-22 05:32] LABS: UREA NITROGEN, BLOOD 103 mg/dL (7-18)
[2023-06-22] MEDS: Sodium Bicarbonate 50 MEQ in IV NS 0.9% 1,000 ML IV SCH ×2 (05:44→17:50)
[2023-06-22] MEDS: BLOOD SUGAR DIAGNOSTIC 1 EACH STRIP IN SCH ×3 (05:49→17:14)
[2023-06-22] MEDS: INSULIN REGULAR, HUMAN 100 UNIT/ML 3 ML VIAL SQ PRN ×3 (05:50→17:17)
[2023-06-22 07:12] LABS: ANISOCYTOSIS 1+; BAND % (MANUAL) 2 % (0.0-5.0); LYMPHOCYTES % (MANUAL) 2 % (16-48); MONOCYTES % (MANUAL) 10 % (0-11.0); NEUTROPHILS % (MANUAL) 86 (42-76); PLATELET ESTIMATE DECREASED
[2023-06-22] MEDS: LORAZEPAM INJ 2 MG/ML VIAL IV PRN (07:50)
[2023-06-22] MEDS: PROPOFOL 100 ML IV PRN ×2 (08:23→20:25)
[2023-06-22] MEDS: ASPIRIN 81 MG TAB.CHEW GT SCH (08:36)
[2023-06-22] MEDS: HYDROCORTISONE SOD SUCCINATE 100 MG/2 ML VIAL IV SCH (08:36)
[2023-06-22] MEDS: PANTOPRAZOLE 40 MG/PACK PACK GT SCH (08:36)
[2023-06-22] MEDS: NITROGLYCERIN 30 GM TUBE TP SCH ×2 (08:37→20:38)
[2023-06-22] MEDS: INSULIN GLARGINE, 100 UNIT/ML CARTRIDGE SQ SCH ×2 (08:37→21:22)
[2023-06-22] MEDS ORDERED: HYDROCORTISONE SOD SUCCINATE 100 MG/2 ML VIAL IV SCH (10:00)
[2023-06-22] MEDS: METOPROLOL TARTRATE 50 MG TABLET NG SCH ×2 (13:38→17:52)
[2023-06-22] MEDS ORDERED: METRONIDAZOLE 500 MG TABLET PO SCH (15:00)
[2023-06-22] MEDS: NEPRO 1,000 ML BOTTLE GT PRN (16:10)
[2023-06-22] MEDS: METRONIDAZOLE 500 MG TABLET GT SCH ×2 (16:26→20:34)
[2023-06-22] MEDS: CEFEPIME 1 GM in IV D5W 50 ML IV SCH (20:34)
[2023-06-22] MEDS: ATORVASTATIN 10 MG TABLET GT SCH (21:28)
[2023-06-23] VITALS (31 sets, daily range): BP systolic 109–145; BP diastolic 48–78; TEMP 98.2–99.2; O2SAT 93–98
[2023-06-23] MEDS: METOPROLOL TARTRATE 50 MG TABLET NG SCH ×4 (00:40→18:03)
[2023-06-23] MEDS: BLOOD SUGAR DIAGNOSTIC 1 EACH STRIP IN SCH ×4 (00:44→17:42)
[2023-06-23] MEDS: INSULIN REGULAR, HUMAN 100 UNIT/ML 3 ML VIAL SQ PRN ×3 (00:45→17:43)
[2023-06-23 04:22] LABS: EOSINOPHILS % (AUTO) 0.1 % (0.0-6.0); HEMATOCRIT 26 % (33-45); HEMOGLOBIN 8.2 g/dL (11.5-14.8); LYMPHOCYTES # (AUTO) 0.9 K/uL (0.8-4.8); LYMPHOCYTES % (AUTO) 3.3 % (20.0-44.0); MEAN CORPUSCULAR HEMOGLOBIN 29 PG (26.0-33.0); MEAN CORPUSCULAR HGB CONC 32 g/dl (31.0-36.0); MEAN CORPUSCULAR VOLUME 90 fL (82-100); MONOCYTES # (AUTO) 2.2 K/uL (0.1-1.30); MONOCYTES % (AUTO) 7.9 % (2.0-12.0); NEUTROPHILS # (AUTO) 25.3 K/uL (1.8-8.9); NEUTROPHILS % (AUTO) 88.7 % (43.0-81.0); PLATELET COUNT (AUTO) 90 K/uL (150-450); RED BLOOD CELL COUNT(AUTO) 2.86 MIL/uL (4.0-5.2); WHITE BLOOD COUNT (AUTO) 28.5 K/uL (4.3-11.0)
[2023-06-23 04:27] LABS: CALCIUM, SERUM 7.6 mg/dL (8.5-10.1); CARBON DIOXIDE 28 mmol/L (21-32); CHLORIDE 109 mmol/L (98-107); CREATININE 5.3 mg/dL (0.6-1.3); GLUCOSE 158 mg/dL (74-106); POTASSIUM 3.3 mmol/L (3.5-5.1); SODIUM SERUM 146 mmol/L (136-145)
[2023-06-23] MEDS: METRONIDAZOLE 500 MG TABLET GT SCH ×3 (04:50→21:12)
[2023-06-23 05:21] LABS: UREA NITROGEN, BLOOD 94 mg/dL (7-18)
[2023-06-23 07:40] LABS: BAND % (MANUAL) 4 % (0.0-5.0); LYMPHOCYTES % (MANUAL) 3 % (16-48); MONOCYTES % (MANUAL) 4 % (0-11.0); MYELOCYTES % 3 % (0-0); NEUTROPHILS % (MANUAL) 86 (42-76); PLATELET ESTIMATE DECREASED
[2023-06-23] MEDS: Sodium Bicarbonate 50 MEQ in IV NS 0.9% 1,000 ML IV SCH (07:44)
[2023-06-23] MEDS: ASPIRIN 81 MG TAB.CHEW GT SCH (09:34)
[2023-06-23] MEDS: PANTOPRAZOLE 40 MG/PACK PACK GT SCH (09:35)
[2023-06-23] MEDS: NITROGLYCERIN 30 GM TUBE TP SCH ×2 (10:01→21:14)
[2023-06-23] MEDS: INSULIN GLARGINE, 100 UNIT/ML CARTRIDGE SQ SCH ×2 (10:04→21:00)
[2023-06-23] MEDS ORDERED: POTASSIUM CL. PREMIX PERIPHER. 50 ML IV SCH (10:30)
[2023-06-23] MEDS ORDERED: POTASSIUM CHLORIDE 20 MEQ POWDER PACKET NG SCH (11:00)
[2023-06-23] MEDS ORDERED: POTASSIUM CHLORIDE 20 MEQ POWDER PACKET GT ONE (11:00)
[2023-06-23] MEDS: DEXTROSE 50%-WATER 50 ML DISP.SYRIN IV PRN (17:44)
[2023-06-23] MEDS: NEPRO 1,000 ML BOTTLE GT PRN (18:20)
[2023-06-23] MEDS: ATORVASTATIN 10 MG TABLET GT SCH (21:12)
[2023-06-23] MEDS: CEFEPIME 1 GM in IV D5W 50 ML IV SCH (21:28)
[2023-06-24] VITALS (43 sets, daily range): BP systolic 82–172; BP diastolic 46–99; TEMP 98.2–98.9; O2SAT 89–100
[2023-06-24] MEDS: BLOOD SUGAR DIAGNOSTIC 1 EACH STRIP IN SCH ×5 (00:55→23:12)
[2023-06-24] MEDS: METOPROLOL TARTRATE 50 MG TABLET NG SCH ×5 (00:58→23:12)
[2023-06-24 04:01] LABS: EOSINOPHILS # (AUTO) 0.3 K/uL (0.0-0.7); EOSINOPHILS % (AUTO) 1.1 % (0.0-6.0); HEMATOCRIT 28 % (33-45); HEMOGLOBIN 8.9 g/dL (11.5-14.8); LYMPHOCYTES # (AUTO) 1.2 K/uL (0.8-4.8); LYMPHOCYTES % (AUTO) 4.4 % (20.0-44.0); MEAN CORPUSCULAR HEMOGLOBIN 29 PG (26.0-33.0); MEAN CORPUSCULAR HGB CONC 32 g/dl (31.0-36.0); MEAN CORPUSCULAR VOLUME 90 fL (82-100); MONOCYTES % (AUTO) 7.3 % (2.0-12.0); NEUTROPHILS # (AUTO) 23.9 K/uL (1.8-8.9); NEUTROPHILS % (AUTO) 87.2 % (43.0-81.0); PLATELET COUNT (AUTO) 81 K/uL (150-450); RED BLOOD CELL COUNT(AUTO) 3.06 MIL/uL (4.0-5.2); RED CELL DISTRIBUTION WIDTH 13.6 % (11.5-15.0); WHITE BLOOD COUNT (AUTO) 27.4 K/uL (4.3-11.0)
[2023-06-24 04:07] LABS: CALCIUM, SERUM 6.9 mg/dL (8.5-10.1); CARBON DIOXIDE 27 mmol/L (21-32); CHLORIDE 107 mmol/L (98-107); CREATININE 4.5 mg/dL (0.6-1.3); GLUCOSE 157 mg/dL (74-106); POTASSIUM 3.9 mmol/L (3.5-5.1); SODIUM SERUM 142 mmol/L (136-145); UREA NITROGEN, BLOOD 76 mg/dL (7-18)
[2023-06-24] MEDS: METRONIDAZOLE 500 MG TABLET GT SCH ×3 (04:49→21:57)
[2023-06-24 05:37] LABS: BAND % (MANUAL) 4 % (0.0-5.0); EOSINOPHILS % (MANUAL) 1 % (0-4); LYMPHOCYTES % (MANUAL) 2 % (16-48); MONOCYTES % (MANUAL) 7 % (0-11.0); MYELOCYTES % 2 % (0-0); NEUTROPHILS % (MANUAL) 84 (42-76); PLATELET ESTIMATE DECREASED
[2023-06-24] MEDS: INSULIN REGULAR, HUMAN 100 UNIT/ML 3 ML VIAL SQ PRN ×3 (06:19→18:09)
[2023-06-24] MEDS: PANTOPRAZOLE 40 MG/PACK PACK GT SCH (08:45)
[2023-06-24] MEDS: INSULIN GLARGINE, 100 UNIT/ML CARTRIDGE SQ SCH ×2 (08:48→23:20)
[2023-06-24] MEDS: NITROGLYCERIN 30 GM TUBE TP SCH ×2 (08:49→21:58)
[2023-06-24] MEDS: ASPIRIN 81 MG TAB.CHEW GT SCH (09:44)
[2023-06-24] MEDS: NEPRO 1,000 ML BOTTLE GT PRN (18:29)
[2023-06-24] MEDS: CEFEPIME 1 GM in IV D5W 50 ML IV SCH (21:47)
[2023-06-24] MEDS: ATORVASTATIN 10 MG TABLET GT SCH (21:57)
[2023-06-25] VITALS (38 sets, daily range): BP systolic 91–163; BP diastolic 48–67; TEMP 97.6–100.6; O2SAT 97–100
[2023-06-25 04:40] LABS: EOSINOPHILS # (AUTO) 0.2 K/uL (0.0-0.7); EOSINOPHILS % (AUTO) 0.7 % (0.0-6.0); HEMATOCRIT 27 % (33-45); HEMOGLOBIN 8.7 g/dL (11.5-14.8); LYMPHOCYTES # (AUTO) 1.1 K/uL (0.8-4.8); LYMPHOCYTES % (AUTO) 4.1 % (20.0-44.0); MEAN CORPUSCULAR HEMOGLOBIN 29 PG (26.0-33.0); MEAN CORPUSCULAR HGB CONC 32 g/dl (31.0-36.0); MEAN CORPUSCULAR VOLUME 90 fL (82-100); MONOCYTES # (AUTO) 1.9 K/uL (0.1-1.30); MONOCYTES % (AUTO) 7.1 % (2.0-12.0); NEUTROPHILS # (AUTO) 24.2 K/uL (1.8-8.9); NEUTROPHILS % (AUTO) 88.1 % (43.0-81.0); PLATELET COUNT (AUTO) 94 K/uL (150-450); RED BLOOD CELL COUNT(AUTO) 3.02 MIL/uL (4.0-5.2); RED CELL DISTRIBUTION WIDTH 13.6 % (11.5-15.0); WHITE BLOOD COUNT (AUTO) 27.5 K/uL (4.3-11.0)
[2023-06-25 05:05] LABS: CALCIUM, SERUM 7.2 mg/dL (8.5-10.1); CARBON DIOXIDE 27 mmol/L (21-32); CHLORIDE 105 mmol/L (98-107); CREATININE 4.5 mg/dL (0.6-1.3); GLUCOSE 122 mg/dL (74-106); POTASSIUM 3.9 mmol/L (3.5-5.1); SODIUM SERUM 140 mmol/L (136-145); UREA NITROGEN, BLOOD 72 mg/dL (7-18)
[2023-06-25] MEDS: METRONIDAZOLE 500 MG TABLET GT SCH ×3 (05:05→21:13)
[2023-06-25] MEDS: METOPROLOL TARTRATE 50 MG TABLET NG SCH ×3 (05:06→17:40)
[2023-06-25] MEDS: BLOOD SUGAR DIAGNOSTIC 1 EACH STRIP IN SCH ×3 (05:06→17:41)
[2023-06-25 05:16] LABS: LYMPHOCYTES % (MANUAL) 2 % (16-48); NEUTROPHILS % (MANUAL) 94 (42-76)
[2023-06-25 05:17] LABS: ANISOCYTOSIS 1+; BASOPHILS % (MANUAL) 0 % (0.0-2.0); EOSINOPHILS % (MANUAL) 0 % (0-4); MONOCYTES % (MANUAL) 4 % (0-11.0); PLATELET ESTIMATE DECREASED
[2023-06-25] MEDS: ASPIRIN 81 MG TAB.CHEW GT SCH (08:43)
[2023-06-25] MEDS: NITROGLYCERIN 30 GM TUBE TP SCH ×2 (08:44→21:23)
[2023-06-25] MEDS: PANTOPRAZOLE 40 MG/PACK PACK GT SCH (08:44)
[2023-06-25] MEDS: INSULIN GLARGINE, 100 UNIT/ML CARTRIDGE SQ SCH (08:46)
[2023-06-25] MEDS: INSULIN REGULAR, HUMAN 100 UNIT/ML 3 ML VIAL SQ PRN ×2 (11:48→17:50)
[2023-06-25] MEDS: CEFEPIME 1 GM in IV D5W 50 ML IV SCH (20:52)
[2023-06-25] MEDS: ATORVASTATIN 10 MG TABLET GT SCH (21:13)
[2023-06-26] VITALS (25 sets, daily range): BP systolic 104–152; BP diastolic 46–67; TEMP 97.8–98.6; O2SAT 96–100
[2023-06-26] MEDS: METOPROLOL TARTRATE 50 MG TABLET NG SCH ×5 (00:17→23:50)
[2023-06-26] MEDS: BLOOD SUGAR DIAGNOSTIC 1 EACH STRIP IN SCH ×4 (00:19→18:35)
[2023-06-26] MEDS: INSULIN GLARGINE, 100 UNIT/ML CARTRIDGE SQ SCH ×3 (00:22→21:00)
[2023-06-26] MEDS: INSULIN REGULAR, HUMAN 100 UNIT/ML 3 ML VIAL SQ PRN ×3 (00:22→18:35)
[2023-06-26] MEDS: METRONIDAZOLE 500 MG TABLET GT SCH ×3 (05:29→21:05)
[2023-06-26 05:34] LABS: CALCIUM, SERUM 7.7 mg/dL (8.5-10.1); CARBON DIOXIDE 22 mmol/L (21-32); CHLORIDE 109 mmol/L (98-107); CREATININE 3.8 mg/dL (0.6-1.3); GLUCOSE 164 mg/dL (74-106); POTASSIUM 4.2 mmol/L (3.5-5.1); SODIUM SERUM 139 mmol/L (136-145); UREA NITROGEN, BLOOD 53 mg/dL (7-18)
[2023-06-26 05:42] LABS: EOSINOPHILS # (AUTO) 0.2 K/uL (0.0-0.7); EOSINOPHILS % (AUTO) 0.8 % (0.0-6.0); HEMATOCRIT 26 % (33-45); HEMOGLOBIN 8.1 g/dL (11.5-14.8); LYMPHOCYTES # (AUTO) 0.8 K/uL (0.8-4.8); LYMPHOCYTES % (AUTO) 2.9 % (20.0-44.0); MEAN CORPUSCULAR HEMOGLOBIN 29 PG (26.0-33.0); MEAN CORPUSCULAR HGB CONC 32 g/dl (31.0-36.0); MEAN CORPUSCULAR VOLUME 91 fL (82-100); MONOCYTES # (AUTO) 1.9 K/uL (0.1-1.30); MONOCYTES % (AUTO) 6.7 % (2.0-12.0); NEUTROPHILS % (AUTO) 89.6 % (43.0-81.0); PLATELET COUNT (AUTO) 117 K/uL (150-450); RED BLOOD CELL COUNT(AUTO) 2.83 MIL/uL (4.0-5.2); RED CELL DISTRIBUTION WIDTH 14.1 % (11.5-15.0); WHITE BLOOD COUNT (AUTO) 27.9 K/uL (4.3-11.0)
[2023-06-26 07:00] LABS: ABG BASE EXCESS 2.3 mmol/L; ABG OXYGEN SATURATION 92.3 % (92.0-98.5); ABG PCO2 35.2 mmHg (35.0-45.0); ABG PH 7.481 (7.350-7.450); ABG PO2 64.8 mmHg (75.0-100.0); ABG TOTAL HEMOGLOBIN 9.7 G/dL (12.0-16.0); COHb 0.9 % (0.5-1.5); MetHb 0.2 % (0.0-1.5); O2Hb 91.3 % (94.0-97.0); SITE, ABG Right Radial
[2023-06-26] MEDS: PANTOPRAZOLE 40 MG/PACK PACK GT SCH (09:30)
[2023-06-26] MEDS: ASPIRIN 81 MG TAB.CHEW GT SCH (09:30)
[2023-06-26] MEDS: NITROGLYCERIN 30 GM TUBE TP SCH ×2 (09:33→21:08)
[2023-06-26] MEDS ORDERED: ALTEPLASE CATHFLO 2 MG/VIAL XX ONE (11:00)
[2023-06-26 11:51] LABS: BAND % (MANUAL) 1 % (0.0-5.0); BASOPHILS % (MANUAL) 0 % (0.0-2.0); EOSINOPHILS % (MANUAL) 0 % (0-4); LYMPHOCYTES % (MANUAL) 8 % (16-48); MONOCYTES % (MANUAL) 5 % (0-11.0); NEUTROPHILS % (MANUAL) 86 (42-76); PLATELET ESTIMATE DECREASED
[2023-06-26 11:52] LABS: ANISOCYTOSIS 1+
[2023-06-26] MEDS ORDERED: HEPARIN SODIUM, PORCINE 1000 UNIT/1 ML VIAL IV ONE (12:30)
[2023-06-26] MEDS: CEFEPIME 1 GM in IV D5W 50 ML IV SCH (21:01)
[2023-06-26] MEDS: ATORVASTATIN 10 MG TABLET GT SCH (21:05)
[2023-06-27] VITALS (28 sets, daily range): BP systolic 131–152; BP diastolic 47–64; TEMP 97.4–98; O2SAT 92–100
[2023-06-27] MEDS: BLOOD SUGAR DIAGNOSTIC 1 EACH STRIP IN SCH ×4 (00:31→17:39)
[2023-06-27] MEDS: METRONIDAZOLE 500 MG TABLET GT SCH ×3 (04:58→21:00)
[2023-06-27] MEDS: METOPROLOL TARTRATE 50 MG TABLET NG SCH ×3 (04:58→17:38)
[2023-06-27 05:01] LABS: BASOPHILS % (AUTO) 0.1 % (0.0-2.0); EOSINOPHILS # (AUTO) 0.2 K/uL (0.0-0.7); EOSINOPHILS % (AUTO) 1.1 % (0.0-6.0); HEMATOCRIT 24 % (33-45); HEMOGLOBIN 7.7 g/dL (11.5-14.8); LYMPHOCYTES # (AUTO) 0.8 K/uL (0.8-4.8); MEAN CORPUSCULAR HEMOGLOBIN 29 PG (26.0-33.0); MEAN CORPUSCULAR HGB CONC 32 g/dl (31.0-36.0); MEAN CORPUSCULAR VOLUME 91 fL (82-100); MONOCYTES # (AUTO) 1.9 K/uL (0.1-1.30); NEUTROPHILS # (AUTO) 17.8 K/uL (1.8-8.9); NEUTROPHILS % (AUTO) 85.8 % (43.0-81.0); PLATELET COUNT (AUTO) 138 K/uL (150-450); RED BLOOD CELL COUNT(AUTO) 2.68 MIL/uL (4.0-5.2); RED CELL DISTRIBUTION WIDTH 14.3 % (11.5-15.0); WHITE BLOOD COUNT (AUTO) 20.8 K/uL (4.3-11.0)
[2023-06-27 05:24] LABS: CALCIUM, SERUM 7.9 mg/dL (8.5-10.1); CARBON DIOXIDE 26 mmol/L (21-32); CHLORIDE 105 mmol/L (98-107); CREATININE 3.2 mg/dL (0.6-1.3); GLUCOSE 132 mg/dL (74-106); PHOSPHORUS 4.4 mg/dL (2.5-4.9); POTASSIUM 4.1 mmol/L (3.5-5.1); SODIUM SERUM 140 mmol/L (136-145); UREA NITROGEN, BLOOD 42 mg/dL (7-18)
[2023-06-27 06:10] LABS: LYMPHOCYTES % (MANUAL) 5 % (16-48); MONOCYTES % (MANUAL) 6 % (0-11.0); NEUTROPHILS % (MANUAL) 89 (42-76); PLATELET ESTIMATE DECREASED
[2023-06-27] MEDS ORDERED: DC PROPOFOL WHEN EXTUBATED XX PRN (08:00)
[2023-06-27] MEDS: PANTOPRAZOLE 40 MG/PACK PACK GT SCH (08:09)
[2023-06-27] MEDS: NITROGLYCERIN 30 GM TUBE TP SCH ×2 (08:09→21:00)
[2023-06-27] MEDS: ASPIRIN 81 MG TAB.CHEW GT SCH (08:09)
[2023-06-27] MEDS: INSULIN GLARGINE, 100 UNIT/ML CARTRIDGE SQ SCH ×2 (08:11→21:00)
[2023-06-27] MEDS: ATORVASTATIN 10 MG TABLET GT SCH (21:20)
[2023-06-28] VITALS (18 sets, daily range): BP systolic 114–171; BP diastolic 52–67; TEMP 97.2–98.6; O2SAT 91–100
[2023-06-28] MEDS: BLOOD SUGAR DIAGNOSTIC 1 EACH STRIP IN SCH ×4 (00:29→18:06)
[2023-06-28] MEDS: INSULIN REGULAR, HUMAN 100 UNIT/ML 3 ML VIAL SQ PRN ×5 (00:30→21:54)
[2023-06-28 01:58] LABS: ABG BASE EXCESS -4.5 mmol/L; ABG OXYGEN SATURATION 96.3 % (92.0-98.5); ABG PCO2 31.3 mmHg (35.0-45.0); ABG PH 7.411 (7.350-7.450); ABG PO2 95.9 mmHg (75.0-100.0); AaDO2 153.3 mmHg; COHb 0.2 % (0.5-1.5); MetHb 0.4 % (0.0-1.5); O2Hb 95.7 % (94.0-97.0); SITE, ABG Right Radial; VENT MODE, BG CPAP 5 / PS 15
[2023-06-28] MEDS: METRONIDAZOLE 500 MG TABLET GT SCH ×4 (05:00→21:03)
[2023-06-28 05:42] LABS: BASOPHILS % (AUTO) 0.1 % (0.0-2.0); EOSINOPHILS # (AUTO) 0.1 K/uL (0.0-0.7); EOSINOPHILS % (AUTO) 0.7 % (0.0-6.0); HEMATOCRIT 33 % (33-45); HEMOGLOBIN 10.7 g/dL (11.5-14.8); LYMPHOCYTES # (AUTO) 0.7 K/uL (0.8-4.8); LYMPHOCYTES % (AUTO) 2.9 % (20.0-44.0); MEAN CORPUSCULAR HEMOGLOBIN 30 PG (26.0-33.0); MEAN CORPUSCULAR HGB CONC 33 g/dl (31.0-36.0); MEAN CORPUSCULAR VOLUME 90 fL (82-100); MONOCYTES # (AUTO) 2.4 K/uL (0.1-1.30); MONOCYTES % (AUTO) 10.9 % (2.0-12.0); NEUTROPHILS # (AUTO) 19.1 K/uL (1.8-8.9); NEUTROPHILS % (AUTO) 85.4 % (43.0-81.0); PLATELET COUNT (AUTO) 184 K/uL (150-450); RED BLOOD CELL COUNT(AUTO) 3.61 MIL/uL (4.0-5.2); RED CELL DISTRIBUTION WIDTH 13.7 % (11.5-15.0); WHITE BLOOD COUNT (AUTO) 22.4 K/uL (4.3-11.0)
[2023-06-28 05:49] LABS: CALCIUM, SERUM 7.9 mg/dL (8.5-10.1); CARBON DIOXIDE 26 mmol/L (21-32); CHLORIDE 102 mmol/L (98-107); CREATININE 2.4 mg/dL (0.6-1.3); GLUCOSE 90 mg/dL (74-106); POTASSIUM 3.6 mmol/L (3.5-5.1); SODIUM SERUM 138 mmol/L (136-145); UREA NITROGEN, BLOOD 28 mg/dL (7-18)
[2023-06-28] MEDS: METOPROLOL TARTRATE 50 MG TABLET NG SCH ×4 (05:51→18:20)
[2023-06-28] MEDS: PANTOPRAZOLE 40 MG/PACK PACK GT SCH (09:00)
[2023-06-28] MEDS: ASPIRIN 81 MG TAB.CHEW GT SCH (09:00)
[2023-06-28] MEDS: INSULIN GLARGINE, 100 UNIT/ML CARTRIDGE SQ SCH ×2 (09:00→21:47)
[2023-06-28] MEDS: NITROGLYCERIN 30 GM TUBE TP SCH ×2 (11:39→21:04)
[2023-06-28] MEDS: LORAZEPAM INJ 2 MG/ML VIAL IV PRN (16:38)
[2023-06-28] MEDS: ATORVASTATIN 10 MG TABLET GT SCH (22:43)
[2023-06-29] VITALS (25 sets, daily range): BP systolic 127–181; BP diastolic 54–81; TEMP 97.5–98.6; O2SAT 89–100
[2023-06-29] MEDS: METOPROLOL TARTRATE 50 MG TABLET NG SCH ×5 (00:48→23:28)
[2023-06-29] MEDS: BLOOD SUGAR DIAGNOSTIC 1 EACH STRIP IN SCH ×4 (00:51→18:12)
[2023-06-29] MEDS: INSULIN REGULAR, HUMAN 100 UNIT/ML 3 ML VIAL SQ PRN (00:52)
[2023-06-29] MEDS: METRONIDAZOLE 500 MG TABLET GT SCH ×2 (05:08→12:13)
[2023-06-29] MEDS: DEXTROSE 50%-WATER 50 ML DISP.SYRIN IV PRN ×4 (05:30→23:49)
[2023-06-29 05:32] LABS: CALCIUM, SERUM 8.2 mg/dL (8.5-10.1); CARBON DIOXIDE 28 mmol/L (21-32); CHLORIDE 105 mmol/L (98-107); CREATININE 4.2 mg/dL (0.6-1.3); GLUCOSE 60 mg/dL (74-106); MAGNESIUM 2.3 mg/dL (1.8-2.4); PHOSPHORUS 5.7 mg/dL (2.5-4.9); POTASSIUM 3.9 mmol/L (3.5-5.1); SODIUM SERUM 140 mmol/L (136-145); UREA NITROGEN, BLOOD 46 mg/dL (7-18)
[2023-06-29 05:35] LABS: BASOPHILS % (AUTO) 0.1 % (0.0-2.0); EOSINOPHILS # (AUTO) 0.2 K/uL (0.0-0.7); EOSINOPHILS % (AUTO) 0.9 % (0.0-6.0); HEMATOCRIT 30 % (33-45); HEMOGLOBIN 9.8 g/dL (11.5-14.8); LYMPHOCYTES # (AUTO) 0.6 K/uL (0.8-4.8); LYMPHOCYTES % (AUTO) 3.2 % (20.0-44.0); MEAN CORPUSCULAR HEMOGLOBIN 30 PG (26.0-33.0); MEAN CORPUSCULAR HGB CONC 33 g/dl (31.0-36.0); MEAN CORPUSCULAR VOLUME 91 fL (82-100); MONOCYTES % (AUTO) 10.3 % (2.0-12.0); NEUTROPHILS # (AUTO) 16.8 K/uL (1.8-8.9); NEUTROPHILS % (AUTO) 85.5 % (43.0-81.0); PLATELET COUNT (AUTO) 213 K/uL (150-450); RED BLOOD CELL COUNT(AUTO) 3.27 MIL/uL (4.0-5.2); RED CELL DISTRIBUTION WIDTH 14.2 % (11.5-15.0); WHITE BLOOD COUNT (AUTO) 19.6 K/uL (4.3-11.0)
[2023-06-29] MEDS: ASPIRIN 81 MG TAB.CHEW GT SCH (08:33)
[2023-06-29] MEDS: PANTOPRAZOLE 40 MG/PACK PACK GT SCH (08:33)
[2023-06-29] MEDS: NITROGLYCERIN 30 GM TUBE TP SCH ×2 (08:40→21:01)
[2023-06-29] MEDS: INSULIN GLARGINE, 100 UNIT/ML CARTRIDGE SQ SCH ×2 (09:01→21:00)
[2023-06-29] MEDS: IPRATROPIUM NEB FS 0.5 MG/2.5 ML AMPUL.NEB NEB SCH ×3 (11:23→19:37)
[2023-06-29 12:00] LABS: ABG BASE EXCESS 0.1 mmol/L; ABG OXYGEN SATURATION 93.8 % (92.0-98.5); ABG PCO2 44.1 mmHg (35.0-45.0); ABG PH 7.378 (7.350-7.450); ABG PO2 72.3 mmHg (75.0-100.0); ABG TOTAL HEMOGLOBIN 11.1 G/dL (12.0-16.0); COHb 0.5 % (0.5-1.5); MetHb 0.1 % (0.0-1.5); O2Hb 93.2 % (94.0-97.0); SITE, ABG Right Radial
[2023-06-29] MEDS: ATORVASTATIN 10 MG TABLET GT SCH (21:13)
[2023-06-30] VITALS (54 sets, daily range): BP systolic 110–160; BP diastolic 43–100; TEMP 97.3–98.6; O2SAT 93–100
[2023-06-30] MEDS: BLOOD SUGAR DIAGNOSTIC 1 EACH STRIP IN SCH ×4 (00:12→17:51)
[2023-06-30] MEDS: IPRATROPIUM NEB FS 0.5 MG/2.5 ML AMPUL.NEB NEB SCH ×4 (02:14→19:49)
[2023-06-30 04:56] LABS: BASOPHILS # (AUTO) 0.1 K/uL (0.0-0.2); BASOPHILS % (AUTO) 0.6 % (0.0-2.0); EOSINOPHILS # (AUTO) 0.1 K/uL (0.0-0.7); EOSINOPHILS % (AUTO) 0.8 % (0.0-6.0); HEMATOCRIT 28 % (33-45); HEMOGLOBIN 9.2 g/dL (11.5-14.8); LYMPHOCYTES # (AUTO) 0.5 K/uL (0.8-4.8); LYMPHOCYTES % (AUTO) 3.7 % (20.0-44.0); MEAN CORPUSCULAR HEMOGLOBIN 30 PG (26.0-33.0); MEAN CORPUSCULAR HGB CONC 33 g/dl (31.0-36.0); MEAN CORPUSCULAR VOLUME 91 fL (82-100); MONOCYTES # (AUTO) 1.4 K/uL (0.1-1.30); MONOCYTES % (AUTO) 9.6 % (2.0-12.0); NEUTROPHILS # (AUTO) 12.3 K/uL (1.8-8.9); NEUTROPHILS % (AUTO) 85.3 % (43.0-81.0); PLATELET COUNT (AUTO) 198 K/uL (150-450); RED BLOOD CELL COUNT(AUTO) 3.14 MIL/uL (4.0-5.2); RED CELL DISTRIBUTION WIDTH 14.1 % (11.5-15.0); WHITE BLOOD COUNT (AUTO) 14.5 K/uL (4.3-11.0)
[2023-06-30] MEDS: METOPROLOL TARTRATE 50 MG TABLET NG SCH ×3 (05:31→17:52)
[2023-06-30] MEDS: INSULIN REGULAR, HUMAN 100 UNIT/ML 3 ML VIAL SQ PRN (05:38)
[2023-06-30 05:39] LABS: ALANINE AMINOTRANSFERASE 202 U/L (12-78); ALBUMIN 1.6 g/dL (3.4-5.0); ALKALINE PHOSPHATASE 205 U/L (46-116); ASPARTATE AMINOTRANSFERASE 40 U/L (15-37); BILIRUBIN,TOTAL 0.8 mg/dL (0.2-1.0); CALCIUM, SERUM 8.3 mg/dL (8.5-10.1); CARBON DIOXIDE 24 mmol/L (21-32); CHLORIDE 108 mmol/L (98-107); CREATININE 3.7 mg/dL (0.6-1.3); GLUCOSE 88 mg/dL (74-106); MAGNESIUM 2.2 mg/dL (1.8-2.4); PHOSPHORUS 5.1 mg/dL (2.5-4.9); POTASSIUM 3.9 mmol/L (3.5-5.1); SODIUM SERUM 139 mmol/L (136-145); TOTAL PROTEIN, SERUM 5.2 g/dL (6.4-8.2); UREA NITROGEN, BLOOD 31 mg/dL (7-18)
[2023-06-30 06:05] LABS: ABG OXYGEN SATURATION 97.2 % (92.0-98.5); ABG PCO2 35.4 mmHg (35.0-45.0); ABG PO2 103.3 mmHg (75.0-100.0); ABG TOTAL HEMOGLOBIN 11.4 G/dL (12.0-16.0); COHb 0.3 % (0.5-1.5); MetHb 0.3 % (0.0-1.5); O2Hb 96.6 % (94.0-97.0); SITE, ABG Left Brachial
[2023-06-30] MEDS: ASPIRIN 81 MG TAB.CHEW GT SCH (08:29)
[2023-06-30] MEDS: PANTOPRAZOLE 40 MG/PACK PACK GT SCH (08:29)
[2023-06-30] MEDS: INSULIN GLARGINE, 100 UNIT/ML CARTRIDGE SQ SCH ×2 (08:43→21:00)
[2023-06-30] MEDS: NITROGLYCERIN 30 GM TUBE TP SCH ×2 (08:47→20:51)
[2023-06-30] MEDS: ATORVASTATIN 10 MG TABLET GT SCH (22:00)
[2023-07-01] VITALS (35 sets, daily range): BP systolic 108–166; BP diastolic 60–129; TEMP 97.7–98; O2SAT 94–100
[2023-07-01] MEDS: BLOOD SUGAR DIAGNOSTIC 1 EACH STRIP IN SCH ×4 (00:16→17:39)
[2023-07-01] MEDS: INSULIN REGULAR, HUMAN 100 UNIT/ML 3 ML VIAL SQ PRN ×2 (00:17→06:13)
[2023-07-01] MEDS: IPRATROPIUM NEB FS 0.5 MG/2.5 ML AMPUL.NEB NEB SCH ×4 (01:21→19:40)
[2023-07-01 04:59] LABS: BASOPHILS % (AUTO) 0.2 % (0.0-2.0); EOSINOPHILS % (AUTO) 0.1 % (0.0-6.0); HEMATOCRIT 29 % (33-45); HEMOGLOBIN 9.4 g/dL (11.5-14.8); LYMPHOCYTES # (AUTO) 0.5 K/uL (0.8-4.8); LYMPHOCYTES % (AUTO) 2.9 % (20.0-44.0); MEAN CORPUSCULAR HEMOGLOBIN 30 PG (26.0-33.0); MEAN CORPUSCULAR HGB CONC 32 g/dl (31.0-36.0); MEAN CORPUSCULAR VOLUME 92 fL (82-100); NEUTROPHILS # (AUTO) 14.7 K/uL (1.8-8.9); NEUTROPHILS % (AUTO) 90.8 % (43.0-81.0); PLATELET COUNT (AUTO) 231 K/uL (150-450); RED BLOOD CELL COUNT(AUTO) 3.17 MIL/uL (4.0-5.2); RED CELL DISTRIBUTION WIDTH 14.5 % (11.5-15.0); WHITE BLOOD COUNT (AUTO) 16.1 K/uL (4.3-11.0)
[2023-07-01 05:46] LABS: ALANINE AMINOTRANSFERASE 189 U/L (12-78); ALBUMIN 1.9 g/dL (3.4-5.0); ALKALINE PHOSPHATASE 222 U/L (46-116); ASPARTATE AMINOTRANSFERASE 47 U/L (15-37); CALCIUM, SERUM 8.4 mg/dL (8.5-10.1); CARBON DIOXIDE 17 mmol/L (21-32); CHLORIDE 104 mmol/L (98-107); CREATININE 5.1 mg/dL (0.6-1.3); GLUCOSE 137 mg/dL (74-106); PHOSPHORUS 7.4 mg/dL (2.5-4.9); POTASSIUM 5.1 mmol/L (3.5-5.1); SODIUM SERUM 138 mmol/L (136-145); UREA NITROGEN, BLOOD 44 mg/dL (7-18)
[2023-07-01 05:47] LABS: MAGNESIUM 2.2 mg/dL (1.8-2.4); TOTAL PROTEIN, SERUM 5.7 g/dL (6.4-8.2)
[2023-07-01] MEDS: METOPROLOL TARTRATE 50 MG TABLET NG SCH ×5 (06:00→23:54)
[2023-07-01] MEDS: INSULIN GLARGINE, 100 UNIT/ML CARTRIDGE SQ SCH ×2 (09:00→21:00)
[2023-07-01] MEDS: ASPIRIN 81 MG TAB.CHEW GT SCH (09:00)
[2023-07-01] MEDS: PANTOPRAZOLE 40 MG/PACK PACK GT SCH (09:00)
[2023-07-01] MEDS: DILTIAZEM HCL CD 240 MG PO SCH (09:00)
[2023-07-01] MEDS: NITROGLYCERIN 30 GM TUBE TP SCH ×2 (09:49→21:00)
[2023-07-01] MEDS: DILTIAZEM HCL 50 MG IV IV PRN (11:31)
[2023-07-01 13:07] LABS: ABG BASE EXCESS -12.2 mmol/L; ABG OXYGEN SATURATION 91.5 % (92.0-98.5); ABG PCO2 21.7 mmHg (35.0-45.0); ABG PH 7.348 (7.350-7.450); ABG PO2 66.7 mmHg (75.0-100.0); ABG TOTAL HEMOGLOBIN 10.5 G/dL (12.0-16.0); AaDO2 107.3 mmHg; COHb 0.2 % (0.5-1.5); MetHb 0.3 % (0.0-1.5); SITE, ABG Right Brachial; VENT MODE, BG NASAL CANNULA
[2023-07-01] MEDS: hydrALAZINE HCL IV 20 MG VIAL IV PRN (18:58)
[2023-07-01] MEDS: ATORVASTATIN 10 MG TABLET GT SCH (21:25)
[2023-07-02] VITALS (36 sets, daily range): BP systolic 102–162; BP diastolic 46–127; TEMP 97.7–99; O2SAT 94–100
[2023-07-02] MEDS: BLOOD SUGAR DIAGNOSTIC 1 EACH STRIP IN SCH ×4 (00:14→18:40)
[2023-07-02] MEDS: DILTIAZEM HCL 50 MG IV IV PRN ×2 (01:14→14:25)
[2023-07-02] MEDS: IPRATROPIUM NEB FS 0.5 MG/2.5 ML AMPUL.NEB NEB SCH ×4 (01:25→19:48)
[2023-07-02 02:08] LABS: ABG BASE EXCESS -12.3 mmol/L; ABG OXYGEN SATURATION 86.3 % (92.0-98.5); ABG PCO2 25.4 mmHg (35.0-45.0); ABG PH 7.308 (7.350-7.450); ABG PO2 57.6 mmHg (75.0-100.0); ABG TOTAL HEMOGLOBIN 11.1 G/dL (12.0-16.0); AaDO2 198.4 mmHg; COHb 0.3 % (0.5-1.5); MetHb 0.1 % (0.0-1.5); SITE, ABG Left Radial
[2023-07-02 04:50] LABS: CALCIUM, SERUM 8.3 mg/dL (8.5-10.1); CARBON DIOXIDE 19 mmol/L (21-32); CHLORIDE 103 mmol/L (98-107); CREATININE 4.6 mg/dL (0.6-1.3); GLUCOSE 185 mg/dL (74-106); POTASSIUM 4.7 mmol/L (3.5-5.1); SODIUM SERUM 140 mmol/L (136-145); UREA NITROGEN, BLOOD 38 mg/dL (7-18)
[2023-07-02] MEDS: METOPROLOL TARTRATE 50 MG TABLET NG SCH ×3 (06:00→17:56)
[2023-07-02] MEDS: INSULIN GLARGINE, 100 UNIT/ML CARTRIDGE SQ SCH ×2 (09:00→21:00)
[2023-07-02] MEDS: DILTIAZEM HCL CD 240 MG PO SCH (09:00)
[2023-07-02] MEDS: PANTOPRAZOLE 40 MG/PACK PACK GT SCH (09:00)
[2023-07-02] MEDS: ASPIRIN 81 MG TAB.CHEW GT SCH (09:00)
[2023-07-02] MEDS: NITROGLYCERIN 30 GM TUBE TP SCH ×2 (09:24→21:35)
[2023-07-02] MEDS ORDERED: DIGOXIN INJ 0.5 MG/2 ML AMPUL IV ONE (11:30)
[2023-07-02] MEDS ORDERED: ALBUMIN 25% 25 GM in PREMIX 1 EA IV PRN (11:30)
[2023-07-02] MEDS: INSULIN REGULAR, HUMAN 100 UNIT/ML 3 ML VIAL SQ PRN ×2 (13:41→18:40)
[2023-07-02] MEDS: ATORVASTATIN 10 MG TABLET GT SCH (21:35)
[2023-07-03] VITALS (32 sets, daily range): BP systolic 88–151; BP diastolic 44–63; TEMP 96.9–98.2; O2SAT 94–100
[2023-07-03] MEDS: BLOOD SUGAR DIAGNOSTIC 1 EACH STRIP IN SCH ×4 (00:22→17:51)
[2023-07-03] MEDS: METOPROLOL TARTRATE 50 MG TABLET NG SCH ×4 (00:22→17:23)
[2023-07-03] MEDS: IPRATROPIUM NEB FS 0.5 MG/2.5 ML AMPUL.NEB NEB SCH ×4 (01:31→19:12)
[2023-07-03 04:14] LABS: BASOPHILS % (AUTO) 0.3 % (0.0-2.0); EOSINOPHILS # (AUTO) 0.1 K/uL (0.0-0.7); EOSINOPHILS % (AUTO) 0.7 % (0.0-6.0); HEMATOCRIT 27 % (33-45); HEMOGLOBIN 8.6 g/dL (11.5-14.8); LYMPHOCYTES # (AUTO) 0.5 K/uL (0.8-4.8); LYMPHOCYTES % (AUTO) 3.6 % (20.0-44.0); MEAN CORPUSCULAR HEMOGLOBIN 30 PG (26.0-33.0); MEAN CORPUSCULAR HGB CONC 32 g/dl (31.0-36.0); MEAN CORPUSCULAR VOLUME 93 fL (82-100); MONOCYTES % (AUTO) 6.9 % (2.0-12.0); NEUTROPHILS # (AUTO) 12.1 K/uL (1.8-8.9); NEUTROPHILS % (AUTO) 88.5 % (43.0-81.0); PLATELET COUNT (AUTO) 236 K/uL (150-450); RED BLOOD CELL COUNT(AUTO) 2.87 MIL/uL (4.0-5.2); RED CELL DISTRIBUTION WIDTH 14.4 % (11.5-15.0); WHITE BLOOD COUNT (AUTO) 13.7 K/uL (4.3-11.0)
[2023-07-03] MEDS: ASPIRIN 81 MG TAB.CHEW GT SCH (08:36)
[2023-07-03] MEDS: PANTOPRAZOLE 40 MG/PACK PACK GT SCH (08:37)
[2023-07-03 08:38] LABS: CALCIUM, SERUM 8.1 mg/dL (8.5-10.1); CARBON DIOXIDE 26 mmol/L (21-32); CHLORIDE 105 mmol/L (98-107); CREATININE 3.8 mg/dL (0.6-1.3); GLUCOSE 158 mg/dL (74-106); POTASSIUM 4.6 mmol/L (3.5-5.1); SODIUM SERUM 141 mmol/L (136-145); UREA NITROGEN, BLOOD 34 mg/dL (7-18)
[2023-07-03] MEDS: DILTIAZEM HCL CD 240 MG PO SCH (08:38)
[2023-07-03] MEDS: INSULIN GLARGINE, 100 UNIT/ML CARTRIDGE SQ SCH (08:39)
[2023-07-03 08:44] LABS: ALANINE AMINOTRANSFERASE 139 U/L (12-78); ALBUMIN 1.8 g/dL (3.4-5.0); ALKALINE PHOSPHATASE 217 U/L (46-116); ASPARTATE AMINOTRANSFERASE 38 U/L (15-37); BILIRUBIN,TOTAL 0.8 mg/dL (0.2-1.0); TOTAL PROTEIN, SERUM 5.4 g/dL (6.4-8.2)
[2023-07-03] MEDS: NITROGLYCERIN 30 GM TUBE TP SCH ×3 (09:05→21:19)
[2023-07-03] MEDS: NEPRO 1,000 ML BOTTLE GT PRN (10:47)
[2023-07-03] MEDS: INSULIN REGULAR, HUMAN 100 UNIT/ML 3 ML VIAL SQ PRN ×2 (12:47→18:03)
[2023-07-03] MEDS: ATORVASTATIN 10 MG TABLET GT SCH (21:18)
[2023-07-04] VITALS (32 sets, daily range): BP systolic 87–143; BP diastolic 33–84; TEMP 97.4–98.9; O2SAT 94–100
[2023-07-04] MEDS: BLOOD SUGAR DIAGNOSTIC 1 EACH STRIP IN SCH ×5 (00:02→23:48)
[2023-07-04] MEDS: INSULIN GLARGINE, 100 UNIT/ML CARTRIDGE SQ SCH ×3 (00:11→20:16)
[2023-07-04] MEDS: INSULIN REGULAR, HUMAN 100 UNIT/ML 3 ML VIAL SQ PRN ×6 (00:12→23:52)
[2023-07-04] MEDS: IPRATROPIUM NEB FS 0.5 MG/2.5 ML AMPUL.NEB NEB SCH ×4 (00:48→19:40)
[2023-07-04] MEDS: METOPROLOL TARTRATE 50 MG TABLET NG SCH ×5 (05:05→23:57)
[2023-07-04 05:50] LABS: BASOPHILS % (AUTO) 0.3 % (0.0-2.0); EOSINOPHILS # (AUTO) 0.1 K/uL (0.0-0.7); EOSINOPHILS % (AUTO) 0.9 % (0.0-6.0); HEMATOCRIT 28 % (33-45); HEMOGLOBIN 9.3 g/dL (11.5-14.8); LYMPHOCYTES # (AUTO) 0.5 K/uL (0.8-4.8); LYMPHOCYTES % (AUTO) 4.1 % (20.0-44.0); MEAN CORPUSCULAR HEMOGLOBIN 30 PG (26.0-33.0); MEAN CORPUSCULAR HGB CONC 33 g/dl (31.0-36.0); MEAN CORPUSCULAR VOLUME 92 fL (82-100); MONOCYTES # (AUTO) 0.9 K/uL (0.1-1.30); NEUTROPHILS # (AUTO) 11.7 K/uL (1.8-8.9); NEUTROPHILS % (AUTO) 87.7 % (43.0-81.0); PLATELET COUNT (AUTO) 243 K/uL (150-450); RED BLOOD CELL COUNT(AUTO) 3.06 MIL/uL (4.0-5.2); RED CELL DISTRIBUTION WIDTH 14.3 % (11.5-15.0); WHITE BLOOD COUNT (AUTO) 13.3 K/uL (4.3-11.0)
[2023-07-04 05:56] LABS: CARBON DIOXIDE 27 mmol/L (21-32); CHLORIDE 103 mmol/L (98-107); CREATININE 3.6 mg/dL (0.6-1.3); GLUCOSE 246 mg/dL (74-106); POTASSIUM 4.1 mmol/L (3.5-5.1); SODIUM SERUM 135 mmol/L (136-145); UREA NITROGEN, BLOOD 36 mg/dL (7-18)
[2023-07-04 06:02] LABS: ALANINE AMINOTRANSFERASE 108 U/L (12-78); ALBUMIN 1.6 g/dL (3.4-5.0); ALKALINE PHOSPHATASE 228 U/L (46-116); ASPARTATE AMINOTRANSFERASE 36 U/L (15-37); BILIRUBIN,TOTAL 0.6 mg/dL (0.2-1.0); TOTAL PROTEIN, SERUM 5.1 g/dL (6.4-8.2)
[2023-07-04] MEDS ORDERED: PHARMACY TO CHANGE PO MEDS TO GT/NG XX PRN (07:00)
[2023-07-04] MEDS: PANTOPRAZOLE 40 MG/PACK PACK GT SCH (08:23)
[2023-07-04] MEDS: NITROGLYCERIN 30 GM TUBE TP SCH ×2 (08:25→20:23)
[2023-07-04] MEDS: ASPIRIN 81 MG TAB.CHEW GT SCH (08:25)
[2023-07-04] MEDS: NEPRO 1,000 ML BOTTLE GT PRN (14:27)
[2023-07-04] MEDS: ATORVASTATIN 10 MG TABLET GT SCH (21:31)
[2023-07-05] VITALS (24 sets, daily range): BP systolic 117–166; BP diastolic 39–59; TEMP 97–98.8; O2SAT 94–100
[2023-07-05] MEDS: IPRATROPIUM NEB FS 0.5 MG/2.5 ML AMPUL.NEB NEB SCH ×4 (01:12→19:35)
[2023-07-05 05:24] LABS: BASOPHILS % (AUTO) 0.1 % (0.0-2.0); EOSINOPHILS # (AUTO) 0.1 K/uL (0.0-0.7); EOSINOPHILS % (AUTO) 1.3 % (0.0-6.0); HEMATOCRIT 26 % (33-45); HEMOGLOBIN 8.4 g/dL (11.5-14.8); LYMPHOCYTES # (AUTO) 0.6 K/uL (0.8-4.8); LYMPHOCYTES % (AUTO) 5.3 % (20.0-44.0); MEAN CORPUSCULAR HEMOGLOBIN 30 PG (26.0-33.0); MEAN CORPUSCULAR HGB CONC 33 g/dl (31.0-36.0); MEAN CORPUSCULAR VOLUME 92 fL (82-100); MONOCYTES % (AUTO) 9.1 % (2.0-12.0); NEUTROPHILS % (AUTO) 84.2 % (43.0-81.0); PLATELET COUNT (AUTO) 220 K/uL (150-450); RED CELL DISTRIBUTION WIDTH 14.5 % (11.5-15.0); WHITE BLOOD COUNT (AUTO) 10.7 K/uL (4.3-11.0)
[2023-07-05] MEDS: METOPROLOL TARTRATE 50 MG TABLET NG SCH ×3 (05:24→18:19)
[2023-07-05 05:27] LABS: CALCIUM, SERUM 7.7 mg/dL (8.5-10.1); CARBON DIOXIDE 27 mmol/L (21-32); CHLORIDE 107 mmol/L (98-107); CREATININE 3.2 mg/dL (0.6-1.3); GLUCOSE 172 mg/dL (74-106); POTASSIUM 3.8 mmol/L (3.5-5.1); SODIUM SERUM 138 mmol/L (136-145); UREA NITROGEN, BLOOD 33 mg/dL (7-18)
[2023-07-05 05:33] LABS: ALANINE AMINOTRANSFERASE 90 U/L (12-78); ALBUMIN 1.5 g/dL (3.4-5.0); ALKALINE PHOSPHATASE 188 U/L (46-116); ASPARTATE AMINOTRANSFERASE 25 U/L (15-37); BILIRUBIN,TOTAL 0.4 mg/dL (0.2-1.0)
[2023-07-05] MEDS: BLOOD SUGAR DIAGNOSTIC 1 EACH STRIP IN SCH ×3 (05:57→18:25)
[2023-07-05] MEDS: INSULIN REGULAR, HUMAN 100 UNIT/ML 3 ML VIAL SQ PRN ×2 (06:02→08:53)
[2023-07-05] MEDS: PANTOPRAZOLE 40 MG/PACK PACK GT SCH (08:49)
[2023-07-05] MEDS: ASPIRIN 81 MG TAB.CHEW GT SCH (08:49)
[2023-07-05] MEDS: hydrALAZINE HCL IV 20 MG VIAL IV PRN (08:50)
[2023-07-05] MEDS: NITROGLYCERIN 30 GM TUBE TP SCH ×2 (08:51→21:43)
[2023-07-05] MEDS: INSULIN GLARGINE, 100 UNIT/ML CARTRIDGE SQ SCH ×2 (08:52→21:00)
[2023-07-05] MEDS: hydrALAZINE HCL 50 MG TABLET PO SCH ×3 (10:00→18:19)
[2023-07-05] MEDS ORDERED: HEPARIN SODIUM, PORCINE 1,000 UNIT/ML VIAL ONE (10:39)
[2023-07-05] MEDS ORDERED: IOHEXOL 240MG/ML 0 ML IV ONE (10:39)
[2023-07-05] MEDS ORDERED: LIDOCAINE 1% INJ 50 ML MDV IJ ONE (10:40)
[2023-07-05] MEDS ORDERED: NEPRO 1,000 ML BOTTLE GT SCH (17:00)
[2023-07-05] MEDS: ATORVASTATIN 10 MG TABLET GT SCH (21:44)
[2023-07-06] VITALS (14 sets, daily range): BP systolic 121–151; BP diastolic 50–56; TEMP 94.5–212; O2SAT 97–100
[2023-07-06] MEDS: BLOOD SUGAR DIAGNOSTIC 1 EACH STRIP IN SCH ×4 (00:52→16:48)
[2023-07-06] MEDS: INSULIN REGULAR, HUMAN 100 UNIT/ML 3 ML VIAL SQ PRN ×5 (00:54→22:15)
[2023-07-06] MEDS: METOPROLOL TARTRATE 50 MG TABLET NG SCH ×4 (00:56→17:01)
[2023-07-06] MEDS: IPRATROPIUM NEB FS 0.5 MG/2.5 ML AMPUL.NEB NEB SCH ×4 (01:47→20:04)
[2023-07-06 06:21] LABS: BASOPHILS % (AUTO) 0.3 % (0.0-2.0); EOSINOPHILS # (AUTO) 0.2 K/uL (0.0-0.7); EOSINOPHILS % (AUTO) 1.9 % (0.0-6.0); HEMATOCRIT 26 % (33-45); HEMOGLOBIN 8.8 g/dL (11.5-14.8); LYMPHOCYTES # (AUTO) 0.4 K/uL (0.8-4.8); LYMPHOCYTES % (AUTO) 4.2 % (20.0-44.0); MEAN CORPUSCULAR HEMOGLOBIN 31 PG (26.0-33.0); MEAN CORPUSCULAR HGB CONC 34 g/dl (31.0-36.0); MEAN CORPUSCULAR VOLUME 91 fL (82-100); MONOCYTES # (AUTO) 0.9 K/uL (0.1-1.30); MONOCYTES % (AUTO) 8.9 % (2.0-12.0); NEUTROPHILS # (AUTO) 8.8 K/uL (1.8-8.9); NEUTROPHILS % (AUTO) 84.7 % (43.0-81.0); PLATELET COUNT (AUTO) 241 K/uL (150-450); RED BLOOD CELL COUNT(AUTO) 2.85 MIL/uL (4.0-5.2); RED CELL DISTRIBUTION WIDTH 14.7 % (11.5-15.0); WHITE BLOOD COUNT (AUTO) 10.3 K/uL (4.3-11.0)
[2023-07-06 06:38] LABS: ALANINE AMINOTRANSFERASE 81 U/L (12-78); ALBUMIN 1.7 g/dL (3.4-5.0); ALKALINE PHOSPHATASE 183 U/L (46-116); ASPARTATE AMINOTRANSFERASE 27 U/L (15-37); BILIRUBIN,TOTAL 0.5 mg/dL (0.2-1.0); CARBON DIOXIDE 26 mmol/L (21-32); CHLORIDE 105 mmol/L (98-107); CREATININE 4.5 mg/dL (0.6-1.3); GLUCOSE 131 mg/dL (74-106); POTASSIUM 4.1 mmol/L (3.5-5.1); SODIUM SERUM 136 mmol/L (136-145); TOTAL PROTEIN, SERUM 5.4 g/dL (6.4-8.2); UREA NITROGEN, BLOOD 51 mg/dL (7-18)
[2023-07-06] MEDS: ASPIRIN 81 MG TAB.CHEW GT SCH (08:38)
[2023-07-06] MEDS: PANTOPRAZOLE 40 MG/PACK PACK GT SCH (08:38)
[2023-07-06] MEDS: hydrALAZINE HCL 50 MG TABLET PO SCH ×3 (08:38→16:28)
[2023-07-06] MEDS: NITROGLYCERIN 30 GM TUBE TP SCH ×2 (08:39→21:00)
[2023-07-06] MEDS: INSULIN GLARGINE, 100 UNIT/ML CARTRIDGE SQ SCH ×2 (08:41→21:00)
[2023-07-06] MEDS: NEPRO 1,000 ML BOTTLE GT PRN (19:22)
[2023-07-06] MEDS: ATORVASTATIN 10 MG TABLET GT SCH (22:25)
[2023-07-07] VITALS (24 sets, daily range): BP systolic 115–160; BP diastolic 46–69; TEMP 97.6–99; O2SAT 90–100
[2023-07-07] MEDS: METOPROLOL TARTRATE 50 MG TABLET NG SCH ×4 (01:08→18:00)
[2023-07-07] MEDS: IPRATROPIUM NEB FS 0.5 MG/2.5 ML AMPUL.NEB NEB SCH ×4 (02:10→19:24)
[2023-07-07] MEDS: BLOOD SUGAR DIAGNOSTIC 1 EACH STRIP IN SCH ×4 (06:57→18:23)
[2023-07-07] MEDS: INSULIN REGULAR, HUMAN 100 UNIT/ML 3 ML VIAL SQ PRN ×2 (06:58→12:12)
[2023-07-07 07:35] LABS: BASOPHILS % (AUTO) 0.1 % (0.0-2.0); EOSINOPHILS # (AUTO) 0.3 K/uL (0.0-0.7); EOSINOPHILS % (AUTO) 2.3 % (0.0-6.0); HEMATOCRIT 26 % (33-45); HEMOGLOBIN 8.2 g/dL (11.5-14.8); LYMPHOCYTES # (AUTO) 0.7 K/uL (0.8-4.8); MEAN CORPUSCULAR HEMOGLOBIN 30 PG (26.0-33.0); MEAN CORPUSCULAR HGB CONC 32 g/dl (31.0-36.0); MEAN CORPUSCULAR VOLUME 94 fL (82-100); MONOCYTES # (AUTO) 1.3 K/uL (0.1-1.30); MONOCYTES % (AUTO) 11.9 % (2.0-12.0); NEUTROPHILS # (AUTO) 8.8 K/uL (1.8-8.9); NEUTROPHILS % (AUTO) 79.7 % (43.0-81.0); PLATELET COUNT (AUTO) 235 K/uL (150-450); RED BLOOD CELL COUNT(AUTO) 2.74 MIL/uL (4.0-5.2); RED CELL DISTRIBUTION WIDTH 14.9 % (11.5-15.0); WHITE BLOOD COUNT (AUTO) 11.1 K/uL (4.3-11.0)
[2023-07-07 08:00] LABS: ALANINE AMINOTRANSFERASE 75 U/L (12-78); ALBUMIN 1.7 g/dL (3.4-5.0); ALKALINE PHOSPHATASE 192 U/L (46-116); ASPARTATE AMINOTRANSFERASE 30 U/L (15-37); BILIRUBIN,TOTAL 0.4 mg/dL (0.2-1.0); CALCIUM, SERUM 7.9 mg/dL (8.5-10.1); CARBON DIOXIDE 22 mmol/L (21-32); CHLORIDE 104 mmol/L (98-107); CREATININE 3.9 mg/dL (0.6-1.3); GLUCOSE 190 mg/dL (74-106); MAGNESIUM 2.5 mg/dL (1.8-2.4); SODIUM SERUM 133 mmol/L (136-145); TOTAL PROTEIN, SERUM 5.6 g/dL (6.4-8.2); UREA NITROGEN, BLOOD 43 mg/dL (7-18)
[2023-07-07] MEDS: ASPIRIN 81 MG TAB.CHEW GT SCH (10:00)
[2023-07-07] MEDS: PANTOPRAZOLE 40 MG/PACK PACK GT SCH (10:00)
[2023-07-07] MEDS: hydrALAZINE HCL 50 MG TABLET PO SCH ×3 (10:01→16:30)
[2023-07-07] MEDS: NITROGLYCERIN 30 GM TUBE TP SCH ×2 (10:02→21:38)
[2023-07-07] MEDS: INSULIN GLARGINE, 100 UNIT/ML CARTRIDGE SQ SCH ×2 (10:18→21:46)
[2023-07-07] MEDS: NEPRO 1,000 ML BOTTLE GT PRN (10:51)
[2023-07-07] MEDS: ATORVASTATIN 10 MG TABLET GT SCH (21:39)
[2023-07-08] VITALS (25 sets, daily range): BP systolic 124–148; BP diastolic 47–86; TEMP 97.9–99; O2SAT 94–100
[2023-07-08] MEDS: METOPROLOL TARTRATE 50 MG TABLET NG SCH ×4 (00:04→17:16)
[2023-07-08] MEDS: INSULIN REGULAR, HUMAN 100 UNIT/ML 3 ML VIAL SQ PRN ×4 (00:14→17:23)
[2023-07-08] MEDS: BLOOD SUGAR DIAGNOSTIC 1 EACH STRIP IN SCH ×4 (00:16→17:16)
[2023-07-08] MEDS: IPRATROPIUM NEB FS 0.5 MG/2.5 ML AMPUL.NEB NEB SCH ×4 (01:46→20:16)
[2023-07-08 04:41] LABS: BASOPHILS % (AUTO) 0.1 % (0.0-2.0); EOSINOPHILS # (AUTO) 0.2 K/uL (0.0-0.7); EOSINOPHILS % (AUTO) 1.5 % (0.0-6.0); HEMATOCRIT 23 % (33-45); HEMOGLOBIN 7.4 g/dL (11.5-14.8); LYMPHOCYTES # (AUTO) 0.6 K/uL (0.8-4.8); LYMPHOCYTES % (AUTO) 5.7 % (20.0-44.0); MEAN CORPUSCULAR HEMOGLOBIN 30 PG (26.0-33.0); MEAN CORPUSCULAR HGB CONC 33 g/dl (31.0-36.0); MEAN CORPUSCULAR VOLUME 91 fL (82-100); MONOCYTES # (AUTO) 1.3 K/uL (0.1-1.30); MONOCYTES % (AUTO) 11.6 % (2.0-12.0); NEUTROPHILS % (AUTO) 81.1 % (43.0-81.0); PLATELET COUNT (AUTO) 233 K/uL (150-450); RED BLOOD CELL COUNT(AUTO) 2.49 MIL/uL (4.0-5.2); RED CELL DISTRIBUTION WIDTH 14.8 % (11.5-15.0); WHITE BLOOD COUNT (AUTO) 11.1 K/uL (4.3-11.0)
[2023-07-08 04:54] LABS: CARBON DIOXIDE 27 mmol/L (21-32); CHLORIDE 102 mmol/L (98-107); CREATININE 3.2 mg/dL (0.6-1.3); GLUCOSE 145 mg/dL (74-106); MAGNESIUM 2.2 mg/dL (1.8-2.4); PHOSPHORUS 2.2 mg/dL (2.5-4.9); POTASSIUM 3.6 mmol/L (3.5-5.1); SODIUM SERUM 135 mmol/L (136-145); UREA NITROGEN, BLOOD 35 mg/dL (7-18)
[2023-07-08] MEDS: ASPIRIN 81 MG TAB.CHEW GT SCH (08:11)
[2023-07-08] MEDS: hydrALAZINE HCL 50 MG TABLET PO SCH ×3 (08:12→16:11)
[2023-07-08] MEDS: PANTOPRAZOLE 40 MG/PACK PACK GT SCH (08:12)
[2023-07-08] MEDS: NITROGLYCERIN 30 GM TUBE TP SCH ×2 (08:13→21:34)
[2023-07-08] MEDS: INSULIN GLARGINE, 100 UNIT/ML CARTRIDGE SQ SCH ×2 (09:07→21:00)
[2023-07-08] MEDS: NEPRO 1,000 ML BOTTLE GT PRN (09:14)
[2023-07-08 10:53] LABS: SERUM AMMONIA 23 umol/L (11-32)
[2023-07-08] MEDS ORDERED: NEUTRA PHOS 1 POWD.PACKET NG ONE (16:00)
[2023-07-08] MEDS: ATORVASTATIN 10 MG TABLET GT SCH (21:34)
[2023-07-09] VITALS (14 sets, daily range): BP systolic 136–157; BP diastolic 55–72; TEMP 97.7–98.9; O2SAT 97–100
[2023-07-09] MEDS: BLOOD SUGAR DIAGNOSTIC 1 EACH STRIP IN SCH ×5 (00:18→23:53)
[2023-07-09] MEDS: IPRATROPIUM NEB FS 0.5 MG/2.5 ML AMPUL.NEB NEB SCH ×4 (01:19→19:45)
[2023-07-09] MEDS: METOPROLOL TARTRATE 50 MG TABLET NG SCH ×4 (01:38→18:24)
[2023-07-09 05:08] LABS: FOLIC ACID 15.1 ng/mL (>3.0)
[2023-07-09] MEDS: INSULIN REGULAR, HUMAN 100 UNIT/ML 3 ML VIAL SQ PRN ×3 (06:21→18:24)
[2023-07-09 06:56] LABS: BASOPHILS % (AUTO) 0.2 % (0.0-2.0); EOSINOPHILS # (AUTO) 0.2 K/uL (0.0-0.7); EOSINOPHILS % (AUTO) 1.7 % (0.0-6.0); HEMATOCRIT 23 % (33-45); HEMOGLOBIN 7.7 g/dL (11.5-14.8); LYMPHOCYTES # (AUTO) 0.6 K/uL (0.8-4.8); LYMPHOCYTES % (AUTO) 4.9 % (20.0-44.0); MEAN CORPUSCULAR HEMOGLOBIN 30 PG (26.0-33.0); MEAN CORPUSCULAR HGB CONC 33 g/dl (31.0-36.0); MEAN CORPUSCULAR VOLUME 93 fL (82-100); MONOCYTES # (AUTO) 1.4 K/uL (0.1-1.30); MONOCYTES % (AUTO) 12.1 % (2.0-12.0); NEUTROPHILS # (AUTO) 9.3 K/uL (1.8-8.9); NEUTROPHILS % (AUTO) 81.1 % (43.0-81.0); PLATELET COUNT (AUTO) 272 K/uL (150-450); RED BLOOD CELL COUNT(AUTO) 2.53 MIL/uL (4.0-5.2); RED CELL DISTRIBUTION WIDTH 15.5 % (11.5-15.0); WHITE BLOOD COUNT (AUTO) 11.4 K/uL (4.3-11.0)
[2023-07-09 07:18] LABS: ALANINE AMINOTRANSFERASE 67 U/L (12-78); ALBUMIN 1.8 g/dL (3.4-5.0); ALKALINE PHOSPHATASE 182 U/L (46-116); ASPARTATE AMINOTRANSFERASE 34 U/L (15-37); BILIRUBIN,TOTAL 0.5 mg/dL (0.2-1.0); CALCIUM, SERUM 8.1 mg/dL (8.5-10.1); CARBON DIOXIDE 26 mmol/L (21-32); CHLORIDE 96 mmol/L (98-107); CREATININE 2.9 mg/dL (0.6-1.3); GLUCOSE 217 mg/dL (74-106); PHOSPHORUS 2.6 mg/dL (2.5-4.9); POTASSIUM 3.8 mmol/L (3.5-5.1); SODIUM SERUM 128 mmol/L (136-145); TOTAL PROTEIN, SERUM 5.8 g/dL (6.4-8.2); UREA NITROGEN, BLOOD 32 mg/dL (7-18)
[2023-07-09] MEDS: ASPIRIN 81 MG TAB.CHEW GT SCH (09:04)
[2023-07-09] MEDS: PANTOPRAZOLE 40 MG/PACK PACK GT SCH (09:05)
[2023-07-09] MEDS: hydrALAZINE HCL 50 MG TABLET PO SCH ×3 (09:05→18:23)
[2023-07-09] MEDS: NITROGLYCERIN 30 GM TUBE TP SCH ×2 (09:06→21:30)
[2023-07-09] MEDS: INSULIN GLARGINE, 100 UNIT/ML CARTRIDGE SQ SCH ×2 (09:06→21:39)
[2023-07-09] MEDS: NEPRO 1,000 ML BOTTLE GT PRN (18:26)
[2023-07-09] MEDS: ATORVASTATIN 10 MG TABLET GT SCH (21:31)
[2023-07-10] VITALS (13 sets, daily range): BP systolic 125–162; BP diastolic 54–63; TEMP 97.3–98.2; O2SAT 93–100
[2023-07-10] MEDS: METOPROLOL TARTRATE 50 MG TABLET NG SCH ×4 (00:11→17:40)
[2023-07-10] MEDS: IPRATROPIUM NEB FS 0.5 MG/2.5 ML AMPUL.NEB NEB SCH ×4 (01:09→19:52)
[2023-07-10] MEDS: BLOOD SUGAR DIAGNOSTIC 1 EACH STRIP IN SCH ×3 (06:28→17:41)
[2023-07-10 06:38] LABS: BASOPHILS % (AUTO) 0.3 % (0.0-2.0); EOSINOPHILS # (AUTO) 0.3 K/uL (0.0-0.7); EOSINOPHILS % (AUTO) 2.3 % (0.0-6.0); HEMATOCRIT 25 % (33-45); HEMOGLOBIN 8.4 g/dL (11.5-14.8); LYMPHOCYTES # (AUTO) 0.7 K/uL (0.8-4.8); LYMPHOCYTES % (AUTO) 6.7 % (20.0-44.0); MEAN CORPUSCULAR HEMOGLOBIN 31 PG (26.0-33.0); MEAN CORPUSCULAR HGB CONC 34 g/dl (31.0-36.0); MEAN CORPUSCULAR VOLUME 91 fL (82-100); MONOCYTES # (AUTO) 1.5 K/uL (0.1-1.30); MONOCYTES % (AUTO) 13.2 % (2.0-12.0); NEUTROPHILS # (AUTO) 8.6 K/uL (1.8-8.9); NEUTROPHILS % (AUTO) 77.5 % (43.0-81.0); PLATELET COUNT (AUTO) 345 K/uL (150-450); RED BLOOD CELL COUNT(AUTO) 2.76 MIL/uL (4.0-5.2); RED CELL DISTRIBUTION WIDTH 15.1 % (11.5-15.0); WHITE BLOOD COUNT (AUTO) 11.1 K/uL (4.3-11.0)
[2023-07-10 06:49] LABS: CALCIUM, SERUM 8.9 mg/dL (8.5-10.1); CARBON DIOXIDE 26 mmol/L (21-32); CHLORIDE 100 mmol/L (98-107); CREATININE 2.4 mg/dL (0.6-1.3); GLUCOSE 124 mg/dL (74-106); MAGNESIUM 2.2 mg/dL (1.8-2.4); PHOSPHORUS 2.7 mg/dL (2.5-4.9); POTASSIUM 3.6 mmol/L (3.5-5.1); SODIUM SERUM 132 mmol/L (136-145); UREA NITROGEN, BLOOD 26 mg/dL (7-18)
[2023-07-10] MEDS: INSULIN GLARGINE, 100 UNIT/ML CARTRIDGE SQ SCH ×2 (09:00→21:01)
[2023-07-10] MEDS: PANTOPRAZOLE 40 MG/PACK PACK GT SCH (09:03)
[2023-07-10] MEDS: ASPIRIN 81 MG TAB.CHEW GT SCH (09:03)
[2023-07-10] MEDS: hydrALAZINE HCL 50 MG TABLET PO SCH ×3 (09:04→17:41)
[2023-07-10] MEDS: NITROGLYCERIN 30 GM TUBE TP SCH ×2 (09:08→20:58)
[2023-07-10] MEDS: MEGESTROL ACETATE SUSP 400 MG/10 ML UDC PO SCH (17:41)
[2023-07-10] MEDS: INSULIN REGULAR, HUMAN 100 UNIT/ML 3 ML VIAL SQ PRN (17:50)
[2023-07-10] MEDS: ATORVASTATIN 10 MG TABLET GT SCH (20:59)
[2023-07-10] MEDS: NEPRO 1,000 ML BOTTLE GT PRN (22:00)
[2023-07-11] VITALS (14 sets, daily range): BP systolic 131–166; BP diastolic 56–67; TEMP 97.9–99.1; O2SAT 96–100
[2023-07-11] MEDS: BLOOD SUGAR DIAGNOSTIC 1 EACH STRIP IN SCH ×5 (00:25→23:23)
[2023-07-11] MEDS: INSULIN REGULAR, HUMAN 100 UNIT/ML 3 ML VIAL SQ PRN ×4 (00:30→23:15)
[2023-07-11] MEDS: METOPROLOL TARTRATE 50 MG TABLET NG SCH ×4 (00:32→17:55)
[2023-07-11] MEDS: IPRATROPIUM NEB FS 0.5 MG/2.5 ML AMPUL.NEB NEB SCH ×4 (01:34→20:12)
[2023-07-11 07:39] LABS: BASOPHILS % (AUTO) 0.2 % (0.0-2.0); EOSINOPHILS # (AUTO) 0.2 K/uL (0.0-0.7); EOSINOPHILS % (AUTO) 1.4 % (0.0-6.0); HEMATOCRIT 23 % (33-45); HEMOGLOBIN 7.6 g/dL (11.5-14.8); LYMPHOCYTES # (AUTO) 0.7 K/uL (0.8-4.8); MEAN CORPUSCULAR HEMOGLOBIN 30 PG (26.0-33.0); MEAN CORPUSCULAR HGB CONC 34 g/dl (31.0-36.0); MEAN CORPUSCULAR VOLUME 90 fL (82-100); MONOCYTES # (AUTO) 1.4 K/uL (0.1-1.30); NEUTROPHILS # (AUTO) 9.3 K/uL (1.8-8.9); NEUTROPHILS % (AUTO) 80.4 % (43.0-81.0); PLATELET COUNT (AUTO) 401 K/uL (150-450); RED CELL DISTRIBUTION WIDTH 14.8 % (11.5-15.0); WHITE BLOOD COUNT (AUTO) 11.5 K/uL (4.3-11.0)
[2023-07-11 07:57] LABS: CALCIUM, SERUM 8.4 mg/dL (8.5-10.1); CARBON DIOXIDE 24 mmol/L (21-32); CHLORIDE 96 mmol/L (98-107); CREATININE 3.9 mg/dL (0.6-1.3); GLUCOSE 198 mg/dL (74-106); MAGNESIUM 2.2 mg/dL (1.8-2.4); PHOSPHORUS 3.2 mg/dL (2.5-4.9); POTASSIUM 4.4 mmol/L (3.5-5.1); SODIUM SERUM 128 mmol/L (136-145)
[2023-07-11 08:20] LABS: UREA NITROGEN, BLOOD 87 mg/dL (7-18)
[2023-07-11] MEDS: MEGESTROL ACETATE SUSP 400 MG/10 ML UDC PO SCH ×2 (08:39→16:44)
[2023-07-11] MEDS: PANTOPRAZOLE 40 MG/PACK PACK GT SCH (08:40)
[2023-07-11] MEDS: NITROGLYCERIN 30 GM TUBE TP SCH ×2 (08:40→21:25)
[2023-07-11] MEDS: ASPIRIN 81 MG TAB.CHEW GT SCH (08:40)
[2023-07-11] MEDS: hydrALAZINE HCL 50 MG TABLET PO SCH ×3 (08:40→16:44)
[2023-07-11] MEDS: INSULIN GLARGINE, 100 UNIT/ML CARTRIDGE SQ SCH ×2 (08:44→23:14)
[2023-07-11 12:31] LABS: ABG BASE EXCESS -2.2 mmol/L; ABG OXYGEN SATURATION 96.1 % (92.0-98.5); ABG PCO2 36.9 mmHg (35.0-45.0); ABG PH 7.399 (7.350-7.450); ABG PO2 84.4 mmHg (75.0-100.0); ABG TOTAL HEMOGLOBIN 8.1 G/dL (12.0-16.0); AaDO2 42.8 mmHg; COHb 0.4 % (0.5-1.5); MetHb 0.1 % (0.0-1.5); O2Hb 95.6 % (94.0-97.0); SITE, ABG Right Brachial; VENT MODE, BG NASAL CANNULA
[2023-07-11] MEDS: POLYETHYLENE GLYCOL 3350 17 GM POWD.PACK PO SCH (19:07)
[2023-07-11] MEDS: DOCUSATE SODIUM 100 MG CAPSULE PO SCH (19:07)
[2023-07-11] MEDS: ATORVASTATIN 10 MG TABLET GT SCH (21:25)
[2023-07-11] MEDS: NEPRO 1,000 ML BOTTLE GT PRN (23:25)
[2023-07-12] VITALS (14 sets, daily range): BP systolic 106–162; BP diastolic 53–93; TEMP 97.5–98.8; O2SAT 96–100
[2023-07-12] MEDS: METOPROLOL TARTRATE 50 MG TABLET NG SCH ×4 (00:24→17:04)
[2023-07-12] MEDS: IPRATROPIUM NEB FS 0.5 MG/2.5 ML AMPUL.NEB NEB SCH ×4 (01:48→20:29)
[2023-07-12] MEDS: BLOOD SUGAR DIAGNOSTIC 1 EACH STRIP IN SCH ×3 (05:19→17:29)
[2023-07-12] MEDS: INSULIN REGULAR, HUMAN 100 UNIT/ML 3 ML VIAL SQ PRN ×3 (05:22→17:30)
[2023-07-12 05:50] LABS: BASOPHILS % (AUTO) 0.2 % (0.0-2.0); EOSINOPHILS # (AUTO) 0.3 K/uL (0.0-0.7); EOSINOPHILS % (AUTO) 2.3 % (0.0-6.0); HEMATOCRIT 23 % (33-45); HEMOGLOBIN 7.8 g/dL (11.5-14.8); LYMPHOCYTES # (AUTO) 0.8 K/uL (0.8-4.8); MEAN CORPUSCULAR HEMOGLOBIN 31 PG (26.0-33.0); MEAN CORPUSCULAR HGB CONC 34 g/dl (31.0-36.0); MEAN CORPUSCULAR VOLUME 91 fL (82-100); MONOCYTES # (AUTO) 1.9 K/uL (0.1-1.30); MONOCYTES % (AUTO) 17.7 % (2.0-12.0); NEUTROPHILS # (AUTO) 7.9 K/uL (1.8-8.9); NEUTROPHILS % (AUTO) 72.8 % (43.0-81.0); PLATELET COUNT (AUTO) 384 K/uL (150-450); RED BLOOD CELL COUNT(AUTO) 2.54 MIL/uL (4.0-5.2); RED CELL DISTRIBUTION WIDTH 14.6 % (11.5-15.0); WHITE BLOOD COUNT (AUTO) 10.9 K/uL (4.3-11.0)
[2023-07-12 06:18] LABS: CALCIUM, SERUM 8.2 mg/dL (8.5-10.1); CARBON DIOXIDE 27 mmol/L (21-32); CHLORIDE 101 mmol/L (98-107); CREATININE 2.3 mg/dL (0.6-1.3); GLUCOSE 142 mg/dL (74-106); MAGNESIUM 2.2 mg/dL (1.8-2.4); POTASSIUM 3.4 mmol/L (3.5-5.1); SODIUM SERUM 134 mmol/L (136-145); UREA NITROGEN, BLOOD 28 mg/dL (7-18)
[2023-07-12] MEDS: MEGESTROL ACETATE SUSP 400 MG/10 ML UDC PO SCH ×2 (08:17→16:25)
[2023-07-12] MEDS: DOCUSATE SODIUM 100 MG CAPSULE PO SCH ×2 (08:18→16:25)
[2023-07-12] MEDS: POLYETHYLENE GLYCOL 3350 17 GM POWD.PACK PO SCH (08:18)
[2023-07-12] MEDS: PANTOPRAZOLE 40 MG/PACK PACK GT SCH (08:18)
[2023-07-12] MEDS: ASPIRIN 81 MG TAB.CHEW GT SCH (08:18)
[2023-07-12] MEDS: hydrALAZINE HCL 50 MG TABLET PO SCH ×3 (08:18→16:28)
[2023-07-12] MEDS: NITROGLYCERIN 30 GM TUBE TP SCH ×2 (08:19→21:48)
[2023-07-12] MEDS: INSULIN GLARGINE, 100 UNIT/ML CARTRIDGE SQ SCH ×2 (08:23→21:51)
[2023-07-12 09:08] LABS: ABG BASE EXCESS 0.1 mmol/L; ABG OXYGEN SATURATION 96.9 % (92.0-98.5); ABG PCO2 39.8 mmHg (35.0-45.0); ABG PH 7.411 (7.350-7.450); ABG PO2 95.6 mmHg (75.0-100.0); ABG TOTAL HEMOGLOBIN 8.4 G/dL (12.0-16.0); AaDO2 57.1 mmHg; COHb 0.2 % (0.5-1.5); MetHb 0.3 % (0.0-1.5); O2Hb 96.4 % (94.0-97.0); SITE, ABG Right Radial; VENT MODE, BG 2 LPM NC
[2023-07-12] MEDS ORDERED: POTASSIUM CL. PREMIX PERIPHER. 50 ML IV SCH (10:30)
[2023-07-12] MEDS ORDERED: NEUTRA PHOS 1 POWD.PACKET NG ONE (16:00)
[2023-07-12] MEDS: ATORVASTATIN 10 MG TABLET GT SCH (21:46)
[2023-07-13] VITALS (14 sets, daily range): BP systolic 135–152; BP diastolic 55–67; TEMP 97.5–99.5; O2SAT 98–100
[2023-07-13] MEDS: BLOOD SUGAR DIAGNOSTIC 1 EACH STRIP IN SCH ×4 (00:37→17:57)
[2023-07-13] MEDS: METOPROLOL TARTRATE 50 MG TABLET NG SCH ×4 (00:38→17:56)
[2023-07-13] MEDS: INSULIN REGULAR, HUMAN 100 UNIT/ML 3 ML VIAL SQ PRN ×4 (00:42→17:49)
[2023-07-13] MEDS: IPRATROPIUM NEB FS 0.5 MG/2.5 ML AMPUL.NEB NEB SCH ×4 (01:54→20:22)
[2023-07-13] MEDS: NEPRO 1,000 ML BOTTLE GT PRN (02:28)
[2023-07-13 07:02] LABS: BASOPHILS % (AUTO) 0.2 % (0.0-2.0); EOSINOPHILS # (AUTO) 0.3 K/uL (0.0-0.7); EOSINOPHILS % (AUTO) 2.4 % (0.0-6.0); HEMATOCRIT 22 % (33-45); HEMOGLOBIN 7.1 g/dL (11.5-14.8); LYMPHOCYTES # (AUTO) 0.9 K/uL (0.8-4.8); LYMPHOCYTES % (AUTO) 8.4 % (20.0-44.0); MEAN CORPUSCULAR HEMOGLOBIN 30 PG (26.0-33.0); MEAN CORPUSCULAR HGB CONC 33 g/dl (31.0-36.0); MEAN CORPUSCULAR VOLUME 91 fL (82-100); MONOCYTES # (AUTO) 1.7 K/uL (0.1-1.30); MONOCYTES % (AUTO) 15.2 % (2.0-12.0); NEUTROPHILS # (AUTO) 8.3 K/uL (1.8-8.9); NEUTROPHILS % (AUTO) 73.8 % (43.0-81.0); PLATELET COUNT (AUTO) 402 K/uL (150-450); RED BLOOD CELL COUNT(AUTO) 2.38 MIL/uL (4.0-5.2); RED CELL DISTRIBUTION WIDTH 15.2 % (11.5-15.0); WHITE BLOOD COUNT (AUTO) 11.2 K/uL (4.3-11.0)
[2023-07-13 07:39] LABS: CALCIUM, SERUM 8.2 mg/dL (8.5-10.1); CARBON DIOXIDE 26 mmol/L (21-32); CHLORIDE 95 mmol/L (98-107); CREATININE 3.8 mg/dL (0.6-1.3); GLUCOSE 141 mg/dL (74-106); MAGNESIUM 2.2 mg/dL (1.8-2.4); PHOSPHORUS 2.9 mg/dL (2.5-4.9); POTASSIUM 4.5 mmol/L (3.5-5.1); SODIUM SERUM 129 mmol/L (136-145); UREA NITROGEN, BLOOD 52 mg/dL (7-18)
[2023-07-13] MEDS: NITROGLYCERIN 30 GM TUBE TP SCH ×2 (09:00→22:01)
[2023-07-13] MEDS: POLYETHYLENE GLYCOL 3350 17 GM POWD.PACK PO SCH (09:34)
[2023-07-13] MEDS: PANTOPRAZOLE 40 MG/PACK PACK GT SCH (09:35)
[2023-07-13] MEDS: DOCUSATE SODIUM 100 MG CAPSULE PO SCH ×2 (09:35→17:56)
[2023-07-13] MEDS: MEGESTROL ACETATE SUSP 400 MG/10 ML UDC PO SCH ×2 (09:35→17:56)
[2023-07-13] MEDS: ASPIRIN 81 MG TAB.CHEW GT SCH (09:35)
[2023-07-13] MEDS: hydrALAZINE HCL 50 MG TABLET PO SCH ×3 (09:36→17:57)
[2023-07-13] MEDS: INSULIN GLARGINE, 100 UNIT/ML CARTRIDGE SQ SCH ×2 (09:44→22:00)
[2023-07-13] MEDS: ATORVASTATIN 10 MG TABLET GT SCH (22:02)
[2023-07-14] VITALS (13 sets, daily range): BP systolic 136–151; BP diastolic 52–62; TEMP 97.5–99; O2SAT 91–100
[2023-07-14] MEDS: METOPROLOL TARTRATE 50 MG TABLET NG SCH ×4 (00:35→17:59)
[2023-07-14] MEDS: INSULIN REGULAR, HUMAN 100 UNIT/ML 3 ML VIAL SQ PRN ×4 (00:37→23:28)
[2023-07-14] MEDS: BLOOD SUGAR DIAGNOSTIC 1 EACH STRIP IN SCH ×5 (00:39→23:26)
[2023-07-14] MEDS: IPRATROPIUM NEB FS 0.5 MG/2.5 ML AMPUL.NEB NEB SCH ×4 (02:15→20:21)
[2023-07-14] MEDS: NEPRO 1,000 ML BOTTLE GT PRN (03:49)
[2023-07-14 07:14] LABS: BASOPHILS % (AUTO) 0.3 % (0.0-2.0); EOSINOPHILS # (AUTO) 0.3 K/uL (0.0-0.7); EOSINOPHILS % (AUTO) 2.5 % (0.0-6.0); HEMATOCRIT 22 % (33-45); HEMOGLOBIN 7.3 g/dL (11.5-14.8); LYMPHOCYTES # (AUTO) 1.1 K/uL (0.8-4.8); LYMPHOCYTES % (AUTO) 8.4 % (20.0-44.0); MEAN CORPUSCULAR HEMOGLOBIN 30 PG (26.0-33.0); MEAN CORPUSCULAR HGB CONC 33 g/dl (31.0-36.0); MEAN CORPUSCULAR VOLUME 91 fL (82-100); MONOCYTES # (AUTO) 1.8 K/uL (0.1-1.30); MONOCYTES % (AUTO) 13.8 % (2.0-12.0); NEUTROPHILS # (AUTO) 9.6 K/uL (1.8-8.9); PLATELET COUNT (AUTO) 395 K/uL (150-450); RED BLOOD CELL COUNT(AUTO) 2.41 MIL/uL (4.0-5.2); RED CELL DISTRIBUTION WIDTH 15.2 % (11.5-15.0); WHITE BLOOD COUNT (AUTO) 12.8 K/uL (4.3-11.0)
[2023-07-14 07:29] LABS: ALANINE AMINOTRANSFERASE 45 U/L (12-78); ALKALINE PHOSPHATASE 196 U/L (46-116); ASPARTATE AMINOTRANSFERASE 28 U/L (15-37); BILIRUBIN,TOTAL 0.4 mg/dL (0.2-1.0); CALCIUM, SERUM 8.4 mg/dL (8.5-10.1); CARBON DIOXIDE 26 mmol/L (21-32); CHLORIDE 94 mmol/L (98-107); CREATININE 4.6 mg/dL (0.6-1.3); GLUCOSE 139 mg/dL (74-106); MAGNESIUM 2.3 mg/dL (1.8-2.4); PHOSPHORUS 2.5 mg/dL (2.5-4.9); POTASSIUM 4.7 mmol/L (3.5-5.1); SODIUM SERUM 127 mmol/L (136-145); TOTAL PROTEIN, SERUM 6.1 g/dL (6.4-8.2); UREA NITROGEN, BLOOD 73 mg/dL (7-18)
[2023-07-14 08:06] LABS: HEPATITIS B SURFACE AB Non Reactive (.)
[2023-07-14] MEDS: MEGESTROL ACETATE SUSP 400 MG/10 ML UDC PO SCH ×2 (09:29→17:58)
[2023-07-14] MEDS: PANTOPRAZOLE 40 MG/PACK PACK GT SCH (09:30)
[2023-07-14] MEDS: hydrALAZINE HCL 50 MG TABLET PO SCH ×3 (09:30→18:00)
[2023-07-14] MEDS: DOCUSATE SODIUM 100 MG CAPSULE PO SCH ×2 (09:30→17:59)
[2023-07-14] MEDS: ASPIRIN 81 MG TAB.CHEW GT SCH (09:30)
[2023-07-14] MEDS: POLYETHYLENE GLYCOL 3350 17 GM POWD.PACK PO SCH (09:31)
[2023-07-14] MEDS: NITROGLYCERIN 30 GM TUBE TP SCH ×2 (09:33→20:42)
[2023-07-14] MEDS: INSULIN GLARGINE, 100 UNIT/ML CARTRIDGE SQ SCH ×2 (09:36→20:40)
[2023-07-14] MEDS ORDERED: NEPRO 1,000 ML BOTTLE GT PRN (12:30)
[2023-07-15] VITALS (12 sets, daily range): BP systolic 114–155; BP diastolic 45–63; TEMP 97.3–99; O2SAT 97–100
[2023-07-15] MEDS: IPRATROPIUM NEB FS 0.5 MG/2.5 ML AMPUL.NEB NEB SCH ×4 (01:49→20:00)
[2023-07-15] MEDS: BLOOD SUGAR DIAGNOSTIC 1 EACH STRIP IN SCH ×3 (05:59→17:52)
[2023-07-15] MEDS: METOPROLOL TARTRATE 50 MG TABLET NG SCH ×4 (05:59→17:56)
[2023-07-15 07:30] LABS: BASOPHILS % (AUTO) 0.1 % (0.0-2.0); EOSINOPHILS # (AUTO) 0.2 K/uL (0.0-0.7); EOSINOPHILS % (AUTO) 1.4 % (0.0-6.0); LYMPHOCYTES # (AUTO) 0.9 K/uL (0.8-4.8); LYMPHOCYTES % (AUTO) 5.9 % (20.0-44.0); MEAN CORPUSCULAR HEMOGLOBIN 30 PG (26.0-33.0); MEAN CORPUSCULAR HGB CONC 34 g/dl (31.0-36.0); MEAN CORPUSCULAR VOLUME 90 fL (82-100); MONOCYTES # (AUTO) 1.9 K/uL (0.1-1.30); MONOCYTES % (AUTO) 12.1 % (2.0-12.0); NEUTROPHILS # (AUTO) 12.5 K/uL (1.8-8.9); NEUTROPHILS % (AUTO) 80.5 % (43.0-81.0); PLATELET COUNT (AUTO) 388 K/uL (150-450); RED BLOOD CELL COUNT(AUTO) 2.19 MIL/uL (4.0-5.2); RED CELL DISTRIBUTION WIDTH 14.9 % (11.5-15.0); WHITE BLOOD COUNT (AUTO) 15.5 K/uL (4.3-11.0)
[2023-07-15 07:31] LABS: HEMATOCRIT 20 % (33-45)
[2023-07-15 07:32] LABS: HEMOGLOBIN 6.7 g/dL (11.5-14.8)
[2023-07-15 07:53] LABS: CALCIUM, SERUM 8.1 mg/dL (8.5-10.1); CARBON DIOXIDE 29 mmol/L (21-32); CHLORIDE 95 mmol/L (98-107); CREATININE 2.8 mg/dL (0.6-1.3); GLUCOSE 106 mg/dL (74-106); PHOSPHORUS 1.6 mg/dL (2.5-4.9); POTASSIUM 3.7 mmol/L (3.5-5.1); SODIUM SERUM 131 mmol/L (136-145); UREA NITROGEN, BLOOD 36 mg/dL (7-18)
[2023-07-15] MEDS: POLYETHYLENE GLYCOL 3350 17 GM POWD.PACK PO SCH (09:00)
[2023-07-15] MEDS: DOCUSATE SODIUM 100 MG CAPSULE PO SCH ×2 (09:00→17:53)
[2023-07-15 09:45] LABS: ANISOCYTOSIS 1+; BASOPHILS % (MANUAL) 0 % (0.0-2.0); EOSINOPHILS % (MANUAL) 1 % (0-4); LYMPHOCYTES % (MANUAL) 6 % (16-48); MONOCYTES % (MANUAL) 9 % (0-11.0); NEUTROPHILS % (MANUAL) 84 (42-76); PLATELET ESTIMATE ADEQUATE; STOMATOCYTES 1+
[2023-07-15] MEDS: MEGESTROL ACETATE SUSP 400 MG/10 ML UDC PO SCH ×2 (09:56→17:53)
[2023-07-15] MEDS: hydrALAZINE HCL 50 MG TABLET PO SCH ×3 (09:56→17:56)
[2023-07-15] MEDS: ASPIRIN 81 MG TAB.CHEW GT SCH (09:57)
[2023-07-15] MEDS: PANTOPRAZOLE 40 MG/PACK PACK GT SCH (09:57)
[2023-07-15] MEDS: NITROGLYCERIN 30 GM TUBE TP SCH ×2 (09:57→21:51)
[2023-07-15] MEDS: INSULIN GLARGINE, 100 UNIT/ML CARTRIDGE SQ SCH ×2 (10:15→21:47)
[2023-07-15] MEDS ORDERED: EPOETIN ALFA (10,000 UNIT) 10,000 UNIT/ML VIAL SQ SCH (12:00)
[2023-07-15] MEDS ORDERED: K PHOS NEUTRAL 250 MG TABLET GT ONE (12:00)
[2023-07-15] MEDS ORDERED: K PHOS NEUTRAL 250 MG TABLET PO ONE (12:00)
[2023-07-15] MEDS: INSULIN REGULAR, HUMAN 100 UNIT/ML 3 ML VIAL SQ PRN ×2 (12:50→17:53)
[2023-07-16] VITALS (7 sets, daily range): BP systolic 138–147; BP diastolic 57–66; TEMP 97.9–98.1; O2SAT 97–100
[2023-07-16] MEDS: METOPROLOL TARTRATE 50 MG TABLET NG SCH ×3 (00:46→12:18)
[2023-07-16] MEDS: BLOOD SUGAR DIAGNOSTIC 1 EACH STRIP IN SCH ×3 (00:46→12:09)
[2023-07-16] MEDS: INSULIN REGULAR, HUMAN 100 UNIT/ML 3 ML VIAL SQ PRN ×3 (00:47→12:08)
[2023-07-16] MEDS: IPRATROPIUM NEB FS 0.5 MG/2.5 ML AMPUL.NEB NEB SCH ×3 (01:30→13:07)
[2023-07-16 06:20] LABS: BASOPHILS % (AUTO) 0.2 % (0.0-2.0); EOSINOPHILS # (AUTO) 0.2 K/uL (0.0-0.7); EOSINOPHILS % (AUTO) 1.2 % (0.0-6.0); HEMATOCRIT 26 % (33-45); HEMOGLOBIN 8.6 g/dL (11.5-14.8); LYMPHOCYTES # (AUTO) 0.9 K/uL (0.8-4.8); LYMPHOCYTES % (AUTO) 6.9 % (20.0-44.0); MEAN CORPUSCULAR HEMOGLOBIN 30 PG (26.0-33.0); MEAN CORPUSCULAR HGB CONC 34 g/dl (31.0-36.0); MEAN CORPUSCULAR VOLUME 89 fL (82-100); MONOCYTES # (AUTO) 1.6 K/uL (0.1-1.30); MONOCYTES % (AUTO) 11.8 % (2.0-12.0); NEUTROPHILS # (AUTO) 10.6 K/uL (1.8-8.9); NEUTROPHILS % (AUTO) 79.9 % (43.0-81.0); PLATELET COUNT (AUTO) 331 K/uL (150-450); RED BLOOD CELL COUNT(AUTO) 2.88 MIL/uL (4.0-5.2); RED CELL DISTRIBUTION WIDTH 15.1 % (11.5-15.0); WHITE BLOOD COUNT (AUTO) 13.3 K/uL (4.3-11.0)
[2023-07-16 06:44] LABS: CARBON DIOXIDE 28 mmol/L (21-32); CHLORIDE 96 mmol/L (98-107); CREATININE 3.9 mg/dL (0.6-1.3); GLUCOSE 105 mg/dL (74-106); POTASSIUM 4.4 mmol/L (3.5-5.1); SODIUM SERUM 130 mmol/L (136-145); UREA NITROGEN, BLOOD 55 mg/dL (7-18)
[2023-07-16] MEDS: hydrALAZINE HCL 50 MG TABLET PO SCH ×2 (09:00→13:06)
[2023-07-16] MEDS: DOCUSATE SODIUM 100 MG CAPSULE PO SCH (09:00)
[2023-07-16] MEDS: POLYETHYLENE GLYCOL 3350 17 GM POWD.PACK PO SCH (09:00)
[2023-07-16] MEDS: MEGESTROL ACETATE SUSP 400 MG/10 ML UDC PO SCH (09:00)
[2023-07-16] MEDS: NITROGLYCERIN 30 GM TUBE TP SCH (09:00)
[2023-07-16] MEDS: PANTOPRAZOLE 40 MG/PACK PACK GT SCH (09:00)
[2023-07-16] MEDS: ASPIRIN 81 MG TAB.CHEW GT SCH (09:00)
[2023-07-16] MEDS: INSULIN GLARGINE, 100 UNIT/ML CARTRIDGE SQ SCH (09:00)
== END 2023-07-16 16:10 | DRG 720 ==
LOC: ER 14:04 → ICU 19:29 → TELE1 07-01 16:01 → TELE-TD 07-01 16:03 → ICU 07-01 16:37 → TELE-TD 07-05 16:57 → ICU 07-07 08:50 → TELE-TD 07-08 18:18 → TELE1 07-10 13:52 → MEDSG1 07-14 09:29
PROVIDERS: ADMIT Nurse Practitioner Acute Care
PROC: 5A09457 Assistance with Respiratory Ventilation, 24-96 Consecutive Hours, Continuous Positive Airway Pressure (ICD-10-PCS; 2023-06-15)
PROC: 30233N1 Transfusion of Nonautologous Red Blood Cells into Peripheral Vein, Percutaneous Approach (ICD-10-PCS; 2023-06-15)
PROC: 5A1955Z Respiratory Ventilation, Greater than 96 Consecutive Hours (ICD-10-PCS; principal; 2023-06-17)
PROC: 0BH17EZ Insertion of Endotracheal Airway into Trachea, Via Natural or Artificial Opening (ICD-10-PCS; 2023-06-17)
PROC: 5A1D70Z Performance of Urinary Filtration, Intermittent, Less than 6 Hours Per Day (ICD-10-PCS; 2023-06-17)
PROC: 06HY33Z Insertion of Infusion Device into Lower Vein, Percutaneous Approach (ICD-10-PCS; 2023-06-17)
PROC: 02HV33Z Insertion of Infusion Device into Superior Vena Cava, Percutaneous Approach (ICD-10-PCS; 2023-06-18)
PROC: B548ZZA Ultrasonography of Superior Vena Cava, Guidance (ICD-10-PCS; 2023-06-18)
PROC: 5A09357 Assistance with Respiratory Ventilation, Less than 24 Consecutive Hours, Continuous Positive Airway Pressure (ICD-10-PCS; 2023-06-29)
PROC: 0JH63XZ Insertion of Tunneled Vascular Access Device into Chest Subcutaneous Tissue and Fascia, Percutaneous Approach (ICD-10-PCS; 2023-07-05)
PROC: 02HV33Z Insertion of Infusion Device into Superior Vena Cava, Percutaneous Approach (ICD-10-PCS; 2023-07-05)
PROC: B518YZA Fluoroscopy of Superior Vena Cava using Other Contrast, Guidance (ICD-10-PCS; 2023-07-05)
DX: A41.9 Sepsis, unspecified organism (principal); J96.01 Acute respiratory failure with hypoxia; N17.0 Acute kidney failure with tubular necrosis; R65.21 Severe sepsis with septic shock; J69.0 Pneumonitis due to inhalation of food and vomit; G92.8 Other toxic encephalopathy; J15.9 Unspecified bacterial pneumonia; I21.A1 Myocardial infarction type 2; E11.10 Type 2 diabetes mellitus with ketoacidosis without coma; J15.69 Pneumonia due to other Gram-negative bacteria; I12.0 Hypertensive chronic kidney disease with stage 5 chronic kidney disease or end stage renal disease; N18.5 Chronic kidney disease, stage 5; J90 Pleural effusion, not elsewhere classified; Z28.310 Unvaccinated for COVID-19; E78.5 Hyperlipidemia, unspecified; E87.1 Hypo-osmolality and hyponatremia; E87.5 Hyperkalemia; F41.9 Anxiety disorder, unspecified; N39.0 Urinary tract infection, site not specified; R13.10 Dysphagia, unspecified; E83.9 Disorder of mineral metabolism, unspecified; D64.9 Anemia, unspecified; Z79.84 Long term (current) use of oral hypoglycemic drugs; Z79.4 Long term (current) use of insulin; K59.00 Constipation, unspecified; M89.8X9 Other specified disorders of bone, unspecified site; K21.9 Gastro-esophageal reflux disease without esophagitis; E11.22 Type 2 diabetes mellitus with diabetic chronic kidney disease; I48.0 Paroxysmal atrial fibrillation; E87.70 Fluid overload, unspecified
CPT/HCPCS: 31720; 36415; 36569; 36600; 70450-TC; 71045-TC; 74018; 76770-TC; 80048-TC; 80053-TC; 80061-TC; 80076-TC; 81001; 82140-TC; 82570-TC; 82607-TC; 82803-TC; 82962-TC; 83605-TC; 83735-TC; 83921; 83935-TC; 84100-TC; 84300-TC; 84443-TC; 84484-TC; 85025-TC; 85730-TC; 86706; 86713; 86850-TC; 87040-TC; 87081-TC; 87086-TC; 87340; 90935-TC; 92526; 92611-TC; 93307-TC; 93880-TC; 94003-TC; 94640-TC; 94762-TC; 94799-TC; 95819-TC; 97110-TC; 97112-TC; 97116-TC; 97530-TC; 97535-TC; A4216; A4223; A6403; C1750; C9113; C9803; G0378; J0330; J0360; J0456; J0690; J0692; J0696; J0885; J1100; J1160; J1200; J1644; J1720; J1815; J2060; J2405; J2997; J3480; J3490; J7030; J7040; J7050; J7060; J7070; P9016; P9047; Q9966

== ENCOUNTER 2023-07-26 15:43 | Inpatient (IN) | payer OTHER ==
[~2023-07-26] VITALS: Ht 157.5 cm; Wt 54.4 kg
[~2023-07-26 15:43] MED LIST: AMLO10TA4 PO; GLIP5TAB13 PO; PRAV10TA40 PO; TRIA1CAP20 PO
[2023-07-26] MEDS ORDERED: DILTIAZEM HCL 50 MG IV IV ONE (16:30)
[2023-07-26] MEDS ORDERED: DILTIAZEM HCL 25 MG IV ONE (16:47)
[2023-07-26 16:50] LABS: BASOPHILS # (AUTO) 0.1 K/uL (0.0-0.2); BASOPHILS % (AUTO) 0.4 % (0.0-2.0); EOSINOPHILS # (AUTO) 0.1 K/uL (0.0-0.7); EOSINOPHILS % (AUTO) 0.7 % (0.0-6.0); HEMATOCRIT 27 % (33-45); HEMOGLOBIN 8.8 g/dL (11.5-14.8); LYMPHOCYTES # (AUTO) 1.2 K/uL (0.8-4.8); LYMPHOCYTES % (AUTO) 8.5 % (20.0-44.0); MEAN CORPUSCULAR HEMOGLOBIN 30 PG (26.0-33.0); MEAN CORPUSCULAR HGB CONC 33 g/dl (31.0-36.0); MEAN CORPUSCULAR VOLUME 91 fL (82-100); MONOCYTES # (AUTO) 1.4 K/uL (0.1-1.30); MONOCYTES % (AUTO) 9.8 % (2.0-12.0); NEUTROPHILS # (AUTO) 11.7 K/uL (1.8-8.9); NEUTROPHILS % (AUTO) 80.6 % (43.0-81.0); PLATELET COUNT (AUTO) 321 K/uL (150-450); RED BLOOD CELL COUNT(AUTO) 2.98 MIL/uL (4.0-5.2); RED CELL DISTRIBUTION WIDTH 16.2 % (11.5-15.0); WHITE BLOOD COUNT (AUTO) 14.5 K/uL (4.3-11.0)
[2023-07-26 17:20] LABS: CALCIUM, SERUM 8.7 mg/dL (8.5-10.1); CARBON DIOXIDE 26 mmol/L (21-32); CHLORIDE 100 mmol/L (98-107); CREATININE 3.6 mg/dL (0.6-1.3); GLUCOSE 68 mg/dL (74-106); POTASSIUM 3.9 mmol/L (3.5-5.1); SODIUM SERUM 138 mmol/L (136-145); UREA NITROGEN, BLOOD 26 mg/dL (7-18)
[2023-07-26 17:27] LABS: INR 1.06 (0.91-1.10); PARTIAL THROMBOPLASTIN TIME 58.8 SEC (24.3-34.3); PROTHROMBIN TIME 11.2 SECS (9.2-11.1)
[2023-07-26 17:31] LABS: ALANINE AMINOTRANSFERASE 30 U/L (12-78); ALBUMIN 2.5 g/dL (3.4-5.0); ALKALINE PHOSPHATASE 129 U/L (46-116); ASPARTATE AMINOTRANSFERASE 101 U/L (15-37); BILIRUBIN,DIRECT 0.3 mg/dL (0.0-0.2); BILIRUBIN,TOTAL 0.7 mg/dL (0.2-1.0); TOTAL PROTEIN, SERUM 7.2 g/dL (6.4-8.2)
[2023-07-26] MEDS ORDERED: INSU100V3 SQ (17:40)
[2023-07-26] MEDS ORDERED: ZINC170P TP (17:40)
[2023-07-26] MEDS ORDERED: IPRA0.2S9 IH (17:40)
[2023-07-26] MEDS ORDERED: NITR0.4T48 SL (17:40)
[2023-07-26] MEDS ORDERED: ASPI-1169 PO (17:40)
[2023-07-26] MEDS ORDERED: DOCU-141 PO (17:40)
[2023-07-26] MEDS ORDERED: METO25TA20 PO (17:40)
[2023-07-26] MEDS ORDERED: EPOE1VIA7 SQ (17:40)
[2023-07-26] MEDS ORDERED: HYDR-4077 PO (17:40)
[2023-07-26] MEDS ORDERED: POLY17PO4 PO (17:40)
[2023-07-26] MEDS ORDERED: INSU100V7 SQ (17:40)
[2023-07-26] MEDS ORDERED: PANT40TA2 PO (17:40)
[2023-07-26] MEDS ORDERED: MEGE400O5 PO (17:40)
[2023-07-26] MEDS ORDERED: ALBU2.5V38 IH (17:40)
[2023-07-26] MEDS ORDERED: ASPIRIN 325 MG TABLET PO ONE (18:00)
[2023-07-26] MEDS ORDERED: ASPIRIN 325 MG TABLET ONE (18:15)
[2023-07-26 20:00] VITALS: BP 148/66; TEMP 98.4; O2SAT 99
[2023-07-26] MEDS ORDERED: MORPHINE SULFATE INJ 2 MG/ML DISP.SYRIN IV PRN (23:30)
[2023-07-26] MEDS ORDERED: IV 1/2NS 1000 ML 1,000 ML IV PRN (23:30)
[2023-07-26] MEDS ORDERED: ONDANSETRON HCL/PF 4 MG/2 ML VIAL IVP PRN (23:30)
[2023-07-26] MEDS ORDERED: Z GUARD REMEDY 4 OZ OINT TP PRN (23:30)
[2023-07-26] MEDS ORDERED: ZOLPIDEM TARTRATE 5 MG TABLET PO PRN (23:30)
[2023-07-26] MEDS ORDERED: MAG HYDROX/AL HYDROX/SIMETH 30 ML UDC PO PRN (23:30)
[2023-07-26] MEDS ORDERED: MAGNESIUM HYDROXIDE 30 ML UDC PO PRN (23:30)
[2023-07-27] VITALS: BP 138/79; TEMP 97.8; O2SAT 98
[2023-07-27] MEDS ORDERED: ENOXAPARIN SODIUM 60 MG/0.6 ML DISP.SYRIN SQ ONE
[2023-07-27] MEDS ORDERED: DEXTROSE 50%-WATER 50 ML DISP.SYRIN IV PRN (00:30)
[2023-07-27] MEDS ORDERED: BLOOD SUGAR DIAGNOSTIC 1 EACH STRIP IN SCH (00:30)
[2023-07-27] MEDS: DEXTROSE 50%-WATER 50 ML DISP.SYRIN IV PRN ×2 (01:07→23:18)
[2023-07-27] MEDS: BLOOD SUGAR DIAGNOSTIC 1 EACH STRIP IN SCH ×4 (01:08→17:44)
[2023-07-27] MEDS: IV D5/0.45 NACL 1,000 ML IV PRN (02:10)
[2023-07-27 06:00] VITALS: BP 130/70; TEMP 98.8; O2SAT 96
[2023-07-27 06:56] LABS: BASOPHILS % (AUTO) 0.2 % (0.0-2.0); EOSINOPHILS % (AUTO) 0.4 % (0.0-6.0); HEMATOCRIT 28 % (33-45); LYMPHOCYTES # (AUTO) 0.8 K/uL (0.8-4.8); LYMPHOCYTES % (AUTO) 7.3 % (20.0-44.0); MEAN CORPUSCULAR HEMOGLOBIN 30 PG (26.0-33.0); MEAN CORPUSCULAR HGB CONC 33 g/dl (31.0-36.0); MEAN CORPUSCULAR VOLUME 93 fL (82-100); MONOCYTES # (AUTO) 1.5 K/uL (0.1-1.30); MONOCYTES % (AUTO) 13.7 % (2.0-12.0); NEUTROPHILS # (AUTO) 8.6 K/uL (1.8-8.9); NEUTROPHILS % (AUTO) 78.4 % (43.0-81.0); PLATELET COUNT (AUTO) 259 K/uL (150-450); RED BLOOD CELL COUNT(AUTO) 2.97 MIL/uL (4.0-5.2); RED CELL DISTRIBUTION WIDTH 16.8 % (11.5-15.0); WHITE BLOOD COUNT (AUTO) 10.9 K/uL (4.3-11.0)
[2023-07-27 07:12] LABS: CALCIUM, SERUM 8.5 mg/dL (8.5-10.1); CARBON DIOXIDE 19 mmol/L (21-32); CHLORIDE 100 mmol/L (98-107); CREATININE 4.6 mg/dL (0.6-1.3); GLUCOSE 149 mg/dL (74-106); MAGNESIUM 2.3 mg/dL (1.8-2.4); PHOSPHORUS 4.5 mg/dL (2.5-4.9); POTASSIUM 4.2 mmol/L (3.5-5.1); SODIUM SERUM 133 mmol/L (136-145); UREA NITROGEN, BLOOD 33 mg/dL (7-18)
[2023-07-27 07:24] LABS: CHOLESTEROL 153 mg/dL (<200); HDL CHOLESTEROL 42 mg/dL (40-60); LDL 95 mg/dL (0-99); THYROID STIMULATING HORMONE 1.374 uIU/mL (0.358-3.74); TRIGLYCERIDES 68 mg/dL (30-150)
[2023-07-27] MEDS ORDERED: PANTOPRAZOLE 40 MG TABLET.DR PO SCH (07:30)
[2023-07-27 08:00] VITALS: BP 143/64; TEMP 97.9; O2SAT 94
[2023-07-27] MEDS ORDERED: ASPIRIN 81 MG TAB.CHEW PO SCH (09:00)
[2023-07-27] MEDS: INSULIN GLARGINE, 100 UNIT/ML CARTRIDGE SQ SCH ×2 (09:00→17:00)
[2023-07-27] MEDS: MEGESTROL ACETATE SUSP 400 MG/10 ML UDC PO SCH ×2 (09:28→16:12)
[2023-07-27] MEDS: ASPIRIN 81 MG TAB.CHEW PO SCH (09:28)
[2023-07-27] MEDS: DOCUSATE SODIUM 100 MG CAPSULE PO SCH ×2 (09:28→16:12)
[2023-07-27] MEDS: hydrALAZINE HCL 50 MG TABLET PO SCH ×3 (09:29→16:12)
[2023-07-27] MEDS ORDERED: HEPARIN INFUSION/D5W 500 ML IV PRN (09:30)
[2023-07-27] MEDS: INSULIN REGULAR, HUMAN 100 UNIT/ML 3 ML VIAL SQ PRN (11:29)
[2023-07-27 12:00] VITALS: BP 171/86; TEMP 98.2; O2SAT 100
[2023-07-27] MEDS: METOPROLOL TARTRATE 25 MG TABLET PO SCH ×2 (12:11→17:43)
[2023-07-27] MEDS: EPOETIN ALFA (10,000 UNIT) 10,000 UNIT/ML VIAL SQ SCH (15:44)
[2023-07-27 16:00] VITALS: BP 128/58; TEMP 97.5; O2SAT 98
[2023-07-27 20:00] VITALS: BP 127/55; TEMP 97.5; O2SAT 100
[2023-07-28] VITALS (8 sets, daily range): BP systolic 127–144; BP diastolic 47–92; TEMP 97.7–98.6; O2SAT 97–100
[2023-07-28] MEDS: ENOXAPARIN SODIUM 60 MG/0.6 ML DISP.SYRIN SQ SCH ×2 (00:48→20:22)
[2023-07-28] MEDS: ACETAMINOPHEN 325 MG TABLET PO PRN (01:06)
[2023-07-28] MEDS: BLOOD SUGAR DIAGNOSTIC 1 EACH STRIP IN SCH ×5 (05:42→23:54)
[2023-07-28 06:21] LABS: BASOPHILS % (AUTO) 0.2 % (0.0-2.0); EOSINOPHILS # (AUTO) 0.2 K/uL (0.0-0.7); EOSINOPHILS % (AUTO) 2.7 % (0.0-6.0); HEMATOCRIT 24 % (33-45); HEMOGLOBIN 7.9 g/dL (11.5-14.8); LYMPHOCYTES # (AUTO) 0.5 K/uL (0.8-4.8); LYMPHOCYTES % (AUTO) 6.3 % (20.0-44.0); MEAN CORPUSCULAR HEMOGLOBIN 30 PG (26.0-33.0); MEAN CORPUSCULAR HGB CONC 32 g/dl (31.0-36.0); MEAN CORPUSCULAR VOLUME 92 fL (82-100); MONOCYTES # (AUTO) 1.1 K/uL (0.1-1.30); MONOCYTES % (AUTO) 14.6 % (2.0-12.0); NEUTROPHILS # (AUTO) 5.8 K/uL (1.8-8.9); NEUTROPHILS % (AUTO) 76.2 % (43.0-81.0); PLATELET COUNT (AUTO) 236 K/uL (150-450); RED BLOOD CELL COUNT(AUTO) 2.65 MIL/uL (4.0-5.2); RED CELL DISTRIBUTION WIDTH 15.9 % (11.5-15.0); WHITE BLOOD COUNT (AUTO) 7.6 K/uL (4.3-11.0)
[2023-07-28] MEDS: METOPROLOL TARTRATE 25 MG TABLET PO SCH ×5 (06:24→23:47)
[2023-07-28 06:35] LABS: ALANINE AMINOTRANSFERASE 36 U/L (12-78); ALBUMIN 2.2 g/dL (3.4-5.0); ALKALINE PHOSPHATASE 129 U/L (46-116); ASPARTATE AMINOTRANSFERASE 62 U/L (15-37); BILIRUBIN,TOTAL 0.5 mg/dL (0.2-1.0); CALCIUM, SERUM 8.4 mg/dL (8.5-10.1); CARBON DIOXIDE 28 mmol/L (21-32); CHLORIDE 101 mmol/L (98-107); CREATININE 3.1 mg/dL (0.6-1.3); GLUCOSE 87 mg/dL (74-106); MAGNESIUM 1.9 mg/dL (1.8-2.4); PHOSPHORUS 3.4 mg/dL (2.5-4.9); POTASSIUM 3.6 mmol/L (3.5-5.1); SODIUM SERUM 136 mmol/L (136-145); TOTAL PROTEIN, SERUM 6.6 g/dL (6.4-8.2); UREA NITROGEN, BLOOD 19 mg/dL (7-18)
[2023-07-28] MEDS: PANTOPRAZOLE 40 MG TABLET.DR PO SCH (08:52)
[2023-07-28] MEDS: ASPIRIN 81 MG TAB.CHEW PO SCH (08:52)
[2023-07-28] MEDS: MEGESTROL ACETATE SUSP 400 MG/10 ML UDC PO SCH ×2 (08:52→17:36)
[2023-07-28] MEDS: DOCUSATE SODIUM 100 MG CAPSULE PO SCH ×2 (08:52→17:00)
[2023-07-28] MEDS: ATORVASTATIN 10 MG TABLET PO SCH (08:52)
[2023-07-28] MEDS: hydrALAZINE HCL 50 MG TABLET PO SCH ×3 (08:53→17:36)
[2023-07-28] MEDS: INSULIN REGULAR, HUMAN 100 UNIT/ML 3 ML VIAL SQ PRN ×3 (12:32→23:55)
[2023-07-28] MEDS: ALBUTEROL FS 2.5 MG/0.5 ML VIAL.NEB NEB PRN (21:47)
[2023-07-28] MEDS: ACETYLCYSTEINE 10% SOLN 400 MG/4 ML VIAL NEB PRN (21:48)
[2023-07-28] MEDS: IPRATROPIUM NEB FS 0.5 MG/2.5 ML AMPUL.NEB NEB PRN (21:48)
[2023-07-29] VITALS (8 sets, daily range): BP systolic 141–158; BP diastolic 69–76; TEMP 97.3–99.3; O2SAT 91–98
[2023-07-29] MEDS: IV D5/0.45 NACL 1,000 ML IV PRN (00:40)
[2023-07-29 04:18] LABS: BASOPHILS % (AUTO) 0.4 % (0.0-2.0); EOSINOPHILS # (AUTO) 0.1 K/uL (0.0-0.7); EOSINOPHILS % (AUTO) 1.7 % (0.0-6.0); HEMATOCRIT 23 % (33-45); HEMOGLOBIN 7.4 g/dL (11.5-14.8); LYMPHOCYTES # (AUTO) 0.6 K/uL (0.8-4.8); LYMPHOCYTES % (AUTO) 8.4 % (20.0-44.0); MEAN CORPUSCULAR HEMOGLOBIN 30 PG (26.0-33.0); MEAN CORPUSCULAR HGB CONC 33 g/dl (31.0-36.0); MEAN CORPUSCULAR VOLUME 93 fL (82-100); MONOCYTES # (AUTO) 1.2 K/uL (0.1-1.30); MONOCYTES % (AUTO) 16.9 % (2.0-12.0); NEUTROPHILS # (AUTO) 5.3 K/uL (1.8-8.9); NEUTROPHILS % (AUTO) 72.6 % (43.0-81.0); PLATELET COUNT (AUTO) 239 K/uL (150-450); RED BLOOD CELL COUNT(AUTO) 2.44 MIL/uL (4.0-5.2); RED CELL DISTRIBUTION WIDTH 16.1 % (11.5-15.0); WHITE BLOOD COUNT (AUTO) 7.3 K/uL (4.3-11.0)
[2023-07-29 04:24] LABS: CALCIUM, SERUM 8.4 mg/dL (8.5-10.1); CARBON DIOXIDE 26 mmol/L (21-32); CHLORIDE 96 mmol/L (98-107); CREATININE 4.6 mg/dL (0.6-1.3); GLUCOSE 211 mg/dL (74-106); POTASSIUM 4.4 mmol/L (3.5-5.1); SODIUM SERUM 130 mmol/L (136-145); UREA NITROGEN, BLOOD 33 mg/dL (7-18)
[2023-07-29 04:30] LABS: INR 1.09 (0.91-1.10); PARTIAL THROMBOPLASTIN TIME 39.2 SEC (24.3-34.3); PROTHROMBIN TIME 11.5 SECS (9.2-11.1)
[2023-07-29] MEDS: BLOOD SUGAR DIAGNOSTIC 1 EACH STRIP IN SCH ×3 (05:31→18:46)
[2023-07-29] MEDS: METOPROLOL TARTRATE 25 MG TABLET PO SCH ×4 (05:32→23:57)
[2023-07-29] MEDS: PANTOPRAZOLE 40 MG TABLET.DR PO SCH (07:30)
[2023-07-29] MEDS: ALBUTEROL FS 2.5 MG/0.5 ML VIAL.NEB NEB PRN (08:18)
[2023-07-29] MEDS: IPRATROPIUM NEB FS 0.5 MG/2.5 ML AMPUL.NEB NEB PRN (08:18)
[2023-07-29] MEDS: ACETYLCYSTEINE 10% SOLN 400 MG/4 ML VIAL NEB PRN (08:18)
[2023-07-29] MEDS: MEGESTROL ACETATE SUSP 400 MG/10 ML UDC PO SCH ×2 (09:00→17:25)
[2023-07-29] MEDS: ASPIRIN 81 MG TAB.CHEW PO SCH (09:00)
[2023-07-29] MEDS: ATORVASTATIN 10 MG TABLET PO SCH (09:00)
[2023-07-29] MEDS: DOCUSATE SODIUM 100 MG CAPSULE PO SCH ×2 (09:00→17:25)
[2023-07-29] MEDS: hydrALAZINE HCL 50 MG TABLET PO SCH ×3 (09:00→17:27)
[2023-07-29] MEDS: MUPIROCIN OINT 2% 22 GM TUBE NS SCH ×2 (17:28→20:46)
[2023-07-29] MEDS: INSULIN REGULAR, HUMAN 100 UNIT/ML 3 ML VIAL SQ PRN (17:33)
[2023-07-29] MEDS: EPOETIN ALFA (10,000 UNIT) 10,000 UNIT/ML VIAL SQ SCH (20:48)
[2023-07-29] MEDS: ENOXAPARIN SODIUM 60 MG/0.6 ML DISP.SYRIN SQ SCH (20:49)
[2023-07-30] VITALS: BP 142/78; TEMP 97.2; O2SAT 97
[2023-07-30] MEDS: BLOOD SUGAR DIAGNOSTIC 1 EACH STRIP IN SCH ×4 (00:05→17:03)
[2023-07-30] MEDS: INSULIN REGULAR, HUMAN 100 UNIT/ML 3 ML VIAL SQ PRN ×4 (00:05→17:55)
[2023-07-30 04:00] VITALS: BP 141/55; TEMP 98.8; O2SAT 100
[2023-07-30] MEDS: METOPROLOL TARTRATE 25 MG TABLET PO SCH ×4 (06:00→16:56)
[2023-07-30 08:00] VITALS: BP 170/69; TEMP 99.1; O2SAT 99
[2023-07-30] MEDS ORDERED: AMIODARONE 450 MG in IV D5W 241 ML IV PRN (08:00)
[2023-07-30] MEDS ORDERED: AMIODARONE 150 MG in IV D5W 100 ML IV ONE (08:00)
[2023-07-30] MEDS ORDERED: AMIODARONE 450 MG in IV D5W 250 ML IV PRN (08:00)
[2023-07-30] MEDS: PANTOPRAZOLE 40 MG TABLET.DR PO SCH (08:41)
[2023-07-30] MEDS: ATORVASTATIN 10 MG TABLET PO SCH (08:41)
[2023-07-30] MEDS: DOCUSATE SODIUM 100 MG CAPSULE PO SCH ×2 (08:41→16:55)
[2023-07-30] MEDS: ASPIRIN 81 MG TAB.CHEW PO SCH (08:41)
[2023-07-30] MEDS: MEGESTROL ACETATE SUSP 400 MG/10 ML UDC PO SCH ×2 (08:41→16:59)
[2023-07-30] MEDS: hydrALAZINE HCL 50 MG TABLET PO SCH ×3 (08:43→16:55)
[2023-07-30 10:45] LABS: CALCIUM, SERUM 8.3 mg/dL (8.5-10.1); CARBON DIOXIDE 26 mmol/L (21-32); CHLORIDE 95 mmol/L (98-107); CREATININE 3.7 mg/dL (0.6-1.3); GLUCOSE 217 mg/dL (74-106); POTASSIUM 3.8 mmol/L (3.5-5.1); SODIUM SERUM 129 mmol/L (136-145); UREA NITROGEN, BLOOD 27 mg/dL (7-18)
[2023-07-30 10:51] LABS: ALANINE AMINOTRANSFERASE 50 U/L (12-78); ALBUMIN 2.2 g/dL (3.4-5.0); ALKALINE PHOSPHATASE 160 U/L (46-116); ASPARTATE AMINOTRANSFERASE 58 U/L (15-37); BILIRUBIN,TOTAL 0.6 mg/dL (0.2-1.0); TOTAL PROTEIN, SERUM 6.5 g/dL (6.4-8.2)
[2023-07-30 10:52] LABS: BASOPHILS % (AUTO) 0.2 % (0.0-2.0); EOSINOPHILS % (AUTO) 0.2 % (0.0-6.0); HEMATOCRIT 23 % (33-45); HEMOGLOBIN 7.8 g/dL (11.5-14.8); LYMPHOCYTES # (AUTO) 1.1 K/uL (0.8-4.8); LYMPHOCYTES % (AUTO) 17.2 % (20.0-44.0); MEAN CORPUSCULAR HEMOGLOBIN 30 PG (26.0-33.0); MEAN CORPUSCULAR HGB CONC 34 g/dl (31.0-36.0); MEAN CORPUSCULAR VOLUME 90 fL (82-100); MONOCYTES # (AUTO) 1.2 K/uL (0.1-1.30); MONOCYTES % (AUTO) 17.9 % (2.0-12.0); NEUTROPHILS # (AUTO) 4.3 K/uL (1.8-8.9); NEUTROPHILS % (AUTO) 64.5 % (43.0-81.0); PLATELET COUNT (AUTO) 251 K/uL (150-450); RED BLOOD CELL COUNT(AUTO) 2.55 MIL/uL (4.0-5.2); RED CELL DISTRIBUTION WIDTH 16.2 % (11.5-15.0); WHITE BLOOD COUNT (AUTO) 6.6 K/uL (4.3-11.0)
[2023-07-30 12:00] VITALS: BP 152/64; TEMP 99.1; O2SAT 99
[2023-07-30] MEDS: MUPIROCIN OINT 2% 22 GM TUBE NS SCH ×2 (12:46→21:58)
[2023-07-30 16:00] VITALS: BP 124/56; TEMP 97.7; O2SAT 100
[2023-07-30 20:00] VITALS: BP 105/67; TEMP 98.6; O2SAT 100
[2023-07-31] VITALS: BP 114/52; TEMP 98.1; O2SAT 100
[2023-07-31] MEDS: BLOOD SUGAR DIAGNOSTIC 1 EACH STRIP IN SCH ×5 (00:06→23:22)
[2023-07-31] MEDS: INSULIN REGULAR, HUMAN 100 UNIT/ML 3 ML VIAL SQ PRN ×4 (00:09→23:26)
[2023-07-31] MEDS: METOPROLOL TARTRATE 25 MG TABLET PO SCH ×2 (00:12→06:00)
[2023-07-31 04:00] VITALS: BP 138/51; TEMP 98.2; O2SAT 100
[2023-07-31 07:52] LABS: BASOPHILS % (AUTO) 0.3 % (0.0-2.0); EOSINOPHILS # (AUTO) 0.1 K/uL (0.0-0.7); EOSINOPHILS % (AUTO) 0.8 % (0.0-6.0); HEMATOCRIT 26 % (33-45); HEMOGLOBIN 8.6 g/dL (11.5-14.8); LYMPHOCYTES # (AUTO) 1.3 K/uL (0.8-4.8); LYMPHOCYTES % (AUTO) 17.6 % (20.0-44.0); MEAN CORPUSCULAR HEMOGLOBIN 30 PG (26.0-33.0); MEAN CORPUSCULAR HGB CONC 33 g/dl (31.0-36.0); MEAN CORPUSCULAR VOLUME 92 fL (82-100); MONOCYTES # (AUTO) 1.1 K/uL (0.1-1.30); MONOCYTES % (AUTO) 14.3 % (2.0-12.0); PLATELET COUNT (AUTO) 295 K/uL (150-450); RED BLOOD CELL COUNT(AUTO) 2.86 MIL/uL (4.0-5.2); RED CELL DISTRIBUTION WIDTH 16.3 % (11.5-15.0); WHITE BLOOD COUNT (AUTO) 7.5 K/uL (4.3-11.0)
[2023-07-31 08:00] VITALS: BP 148/50; TEMP 98.8; O2SAT 100
[2023-07-31] MEDS: PANTOPRAZOLE 40 MG TABLET.DR PO SCH (08:06)
[2023-07-31] MEDS: MUPIROCIN OINT 2% 22 GM TUBE NS SCH ×2 (08:07→20:44)
[2023-07-31 08:33] LABS: ALANINE AMINOTRANSFERASE 42 U/L (12-78); ALBUMIN 1.9 g/dL (3.4-5.0); ALKALINE PHOSPHATASE 133 U/L (46-116); ASPARTATE AMINOTRANSFERASE 42 U/L (15-37); BILIRUBIN,TOTAL 0.5 mg/dL (0.2-1.0); CALCIUM, SERUM 8.1 mg/dL (8.5-10.1); CARBON DIOXIDE 26 mmol/L (21-32); CHLORIDE 92 mmol/L (98-107); CREATININE 4.7 mg/dL (0.6-1.3); GLUCOSE 123 mg/dL (74-106); POTASSIUM 3.6 mmol/L (3.5-5.1); SODIUM SERUM 127 mmol/L (136-145); TOTAL PROTEIN, SERUM 5.9 g/dL (6.4-8.2); UREA NITROGEN, BLOOD 43 mg/dL (7-18)
[2023-07-31] MEDS: ATORVASTATIN 10 MG TABLET PO SCH (09:05)
[2023-07-31] MEDS: DOCUSATE SODIUM 100 MG CAPSULE PO SCH ×2 (09:06→17:00)
[2023-07-31] MEDS: ASPIRIN 81 MG TAB.CHEW PO SCH (09:06)
[2023-07-31] MEDS: hydrALAZINE HCL 50 MG TABLET PO SCH ×3 (09:06→17:55)
[2023-07-31] MEDS: MEGESTROL ACETATE SUSP 400 MG/10 ML UDC PO SCH ×2 (09:06→17:55)
[2023-07-31] MEDS: AMIODARONE HCL 200 MG TABLET PO SCH ×2 (10:52→17:55)
[2023-07-31] MEDS: APIXABAN 2.5 MG TABLET PO SCH ×2 (10:52→20:45)
[2023-07-31 12:00] VITALS: BP 132/50; TEMP 98.4; O2SAT 100
[2023-07-31] MEDS: EPOETIN ALFA (10,000 UNIT) 10,000 UNIT/ML VIAL SQ SCH (15:53)
[2023-07-31 16:00] VITALS: BP 123/68; TEMP 98.4; O2SAT 100
[2023-07-31] MEDS ORDERED: NEPRO VAN 237 ML CAN PO PRN (16:30)
[2023-07-31 20:34] VITALS: BP 128/50; TEMP 98.6; O2SAT 100
[2023-08-01] VITALS (8 sets, daily range): BP systolic 115–149; BP diastolic 49–78; TEMP 97.8–98.8; O2SAT 99–100
[2023-08-01] MEDS: ACETAMINOPHEN 325 MG TABLET PO PRN ×3 (01:30→17:32)
[2023-08-01] MEDS: BLOOD SUGAR DIAGNOSTIC 1 EACH STRIP IN SCH ×3 (05:48→17:03)
[2023-08-01 06:48] LABS: BASOPHILS % (AUTO) 0.2 % (0.0-2.0); EOSINOPHILS # (AUTO) 0.2 K/uL (0.0-0.7); EOSINOPHILS % (AUTO) 2.2 % (0.0-6.0); HEMATOCRIT 29 % (33-45); HEMOGLOBIN 9.5 g/dL (11.5-14.8); LYMPHOCYTES # (AUTO) 1.3 K/uL (0.8-4.8); MEAN CORPUSCULAR HEMOGLOBIN 30 PG (26.0-33.0); MEAN CORPUSCULAR HGB CONC 32 g/dl (31.0-36.0); MEAN CORPUSCULAR VOLUME 93 fL (82-100); MONOCYTES # (AUTO) 1.1 K/uL (0.1-1.30); MONOCYTES % (AUTO) 14.2 % (2.0-12.0); NEUTROPHILS # (AUTO) 5.4 K/uL (1.8-8.9); NEUTROPHILS % (AUTO) 67.4 % (43.0-81.0); PLATELET COUNT (AUTO) 258 K/uL (150-450); RED BLOOD CELL COUNT(AUTO) 3.14 MIL/uL (4.0-5.2); RED CELL DISTRIBUTION WIDTH 16.6 % (11.5-15.0); WHITE BLOOD COUNT (AUTO) 8.1 K/uL (4.3-11.0)
[2023-08-01 07:33] LABS: ALANINE AMINOTRANSFERASE 37 U/L (12-78); ALKALINE PHOSPHATASE 126 U/L (46-116); ASPARTATE AMINOTRANSFERASE 29 U/L (15-37); BILIRUBIN,TOTAL 0.5 mg/dL (0.2-1.0); CALCIUM, SERUM 7.8 mg/dL (8.5-10.1); CARBON DIOXIDE 22 mmol/L (21-32); CHLORIDE 97 mmol/L (98-107); CREATININE 3.5 mg/dL (0.6-1.3); GLUCOSE 88 mg/dL (74-106); POTASSIUM 3.4 mmol/L (3.5-5.1); SODIUM SERUM 129 mmol/L (136-145); TOTAL PROTEIN, SERUM 6.2 g/dL (6.4-8.2); UREA NITROGEN, BLOOD 32 mg/dL (7-18)
[2023-08-01] MEDS: PANTOPRAZOLE 40 MG TABLET.DR PO SCH (07:37)
[2023-08-01] MEDS: ATORVASTATIN 10 MG TABLET PO SCH (08:28)
[2023-08-01] MEDS: MEGESTROL ACETATE SUSP 400 MG/10 ML UDC PO SCH ×2 (08:28→16:12)
[2023-08-01] MEDS: VIT B CMPLX 3/FA/VIT C/BIOTIN 1 TAB TABLET PO SCH (08:28)
[2023-08-01] MEDS: DOCUSATE SODIUM 100 MG CAPSULE PO SCH ×2 (08:28→16:12)
[2023-08-01] MEDS: AMIODARONE HCL 200 MG TABLET PO SCH ×2 (08:29→16:11)
[2023-08-01] MEDS: hydrALAZINE HCL 50 MG TABLET PO SCH ×3 (08:29→16:11)
[2023-08-01] MEDS: APIXABAN 2.5 MG TABLET PO SCH ×2 (08:30→21:17)
[2023-08-01] MEDS: MUPIROCIN OINT 2% 22 GM TUBE NS SCH ×2 (08:32→21:05)
[2023-08-01] MEDS ORDERED: POTASSIUM CHLORIDE 20 MEQ TAB.PRT.SR PO ONE (10:30)
[2023-08-01] MEDS: INSULIN REGULAR, HUMAN 100 UNIT/ML 3 ML VIAL SQ PRN ×2 (11:05→17:04)
[2023-08-01 13:08] LABS: BAND % (MANUAL) 2 % (0.0-5.0); LYMPHOCYTES % (MANUAL) 7 % (16-48); MONOCYTES % (MANUAL) 9 % (0-11.0); NEUTROPHILS % (MANUAL) 82 (42-76); PLATELET ESTIMATE ADEQUATE
[2023-08-01] MEDS: IPRATROPIUM NEB FS 0.5 MG/2.5 ML AMPUL.NEB NEB PRN (20:21)
[2023-08-01] MEDS: ALBUTEROL FS 2.5 MG/0.5 ML VIAL.NEB NEB PRN (20:21)
[2023-08-02] VITALS (8 sets, daily range): BP systolic 136–146; BP diastolic 60–81; TEMP 97.7–98.8; O2SAT 95–100
[2023-08-02] MEDS: INSULIN REGULAR, HUMAN 100 UNIT/ML 3 ML VIAL SQ PRN ×3 (00:12→13:01)
[2023-08-02] MEDS: BLOOD SUGAR DIAGNOSTIC 1 EACH STRIP IN SCH ×4 (00:17→18:24)
[2023-08-02] MEDS: ALBUTEROL FS 2.5 MG/0.5 ML VIAL.NEB NEB PRN (01:18)
[2023-08-02 07:38] LABS: BASOPHILS % (AUTO) 0.2 % (0.0-2.0); EOSINOPHILS % (AUTO) 0.4 % (0.0-6.0); HEMATOCRIT 28 % (33-45); HEMOGLOBIN 9.4 g/dL (11.5-14.8); LYMPHOCYTES # (AUTO) 0.7 K/uL (0.8-4.8); LYMPHOCYTES % (AUTO) 10.1 % (20.0-44.0); MEAN CORPUSCULAR HEMOGLOBIN 31 PG (26.0-33.0); MEAN CORPUSCULAR HGB CONC 34 g/dl (31.0-36.0); MEAN CORPUSCULAR VOLUME 92 fL (82-100); MONOCYTES # (AUTO) 0.9 K/uL (0.1-1.30); MONOCYTES % (AUTO) 12.1 % (2.0-12.0); NEUTROPHILS # (AUTO) 5.5 K/uL (1.8-8.9); NEUTROPHILS % (AUTO) 77.2 % (43.0-81.0); PLATELET COUNT (AUTO) 256 K/uL (150-450); RED BLOOD CELL COUNT(AUTO) 3.08 MIL/uL (4.0-5.2); RED CELL DISTRIBUTION WIDTH 16.5 % (11.5-15.0); WHITE BLOOD COUNT (AUTO) 7.2 K/uL (4.3-11.0)
[2023-08-02 07:39] LABS: ALANINE AMINOTRANSFERASE 32 U/L (12-78); ALBUMIN 2.3 g/dL (3.4-5.0); ALKALINE PHOSPHATASE 123 U/L (46-116); ASPARTATE AMINOTRANSFERASE 32 U/L (15-37); BILIRUBIN,TOTAL 0.5 mg/dL (0.2-1.0); CALCIUM, SERUM 8.1 mg/dL (8.5-10.1); CARBON DIOXIDE 25 mmol/L (21-32); CHLORIDE 96 mmol/L (98-107); CREATININE 4.8 mg/dL (0.6-1.3); GLUCOSE 177 mg/dL (74-106); POTASSIUM 3.5 mmol/L (3.5-5.1); SODIUM SERUM 131 mmol/L (136-145); TOTAL PROTEIN, SERUM 6.5 g/dL (6.4-8.2); UREA NITROGEN, BLOOD 38 mg/dL (7-18)
[2023-08-02] MEDS: MEGESTROL ACETATE SUSP 400 MG/10 ML UDC PO SCH ×2 (08:20→18:23)
[2023-08-02] MEDS: hydrALAZINE HCL 50 MG TABLET PO SCH ×3 (08:20→18:24)
[2023-08-02] MEDS: VIT B CMPLX 3/FA/VIT C/BIOTIN 1 TAB TABLET PO SCH (08:21)
[2023-08-02] MEDS: ATORVASTATIN 10 MG TABLET PO SCH (08:21)
[2023-08-02] MEDS: AMIODARONE HCL 200 MG TABLET PO SCH ×2 (08:21→18:24)
[2023-08-02] MEDS: PANTOPRAZOLE 40 MG TABLET.DR PO SCH (08:21)
[2023-08-02] MEDS: DOCUSATE SODIUM 100 MG CAPSULE PO SCH (08:21)
[2023-08-02] MEDS: MUPIROCIN OINT 2% 22 GM TUBE NS SCH ×2 (08:21→21:00)
[2023-08-02] MEDS ORDERED: GUAIFENESIN/D-METHORPHAN HB 5 ML UDC PO PRN (17:00)
[2023-08-02] MEDS ORDERED: DOCUSATE SODIUM 100 MG CAPSULE PO PRN (17:00)
[2023-08-03] VITALS (8 sets, daily range): BP systolic 110–149; BP diastolic 59–68; TEMP 97.7–98.9; O2SAT 95–100
[2023-08-03] MEDS: INSULIN REGULAR, HUMAN 100 UNIT/ML 3 ML VIAL SQ PRN ×5 (00:13→23:34)
[2023-08-03] MEDS: IPRATROPIUM NEB FS 0.5 MG/2.5 ML AMPUL.NEB NEB PRN (00:17)
[2023-08-03] MEDS: ALBUTEROL FS 2.5 MG/0.5 ML VIAL.NEB NEB PRN (00:17)
[2023-08-03] MEDS: BLOOD SUGAR DIAGNOSTIC 1 EACH STRIP IN SCH ×5 (00:18→23:32)
[2023-08-03] MEDS: PANTOPRAZOLE 40 MG TABLET.DR PO SCH (07:44)
[2023-08-03] MEDS: MEGESTROL ACETATE SUSP 400 MG/10 ML UDC PO SCH ×3 (09:00→16:55)
[2023-08-03] MEDS: hydrALAZINE HCL 50 MG TABLET PO SCH ×3 (09:09→16:57)
[2023-08-03] MEDS: AMIODARONE HCL 200 MG TABLET PO SCH ×2 (09:09→16:57)
[2023-08-03] MEDS: ATORVASTATIN 10 MG TABLET PO SCH (09:09)
[2023-08-03] MEDS: MUPIROCIN OINT 2% 22 GM TUBE NS SCH ×2 (09:09→20:57)
[2023-08-03] MEDS: VIT B CMPLX 3/FA/VIT C/BIOTIN 1 TAB TABLET PO SCH (09:09)
[2023-08-03] MEDS: EPOETIN ALFA (10,000 UNIT) 10,000 UNIT/ML VIAL SQ SCH (15:30)
[2023-08-04] VITALS (14 sets, daily range): BP systolic 130–165; BP diastolic 55–91; TEMP 97.7–98.8; O2SAT 97–100
[2023-08-04] MEDS: BLOOD SUGAR DIAGNOSTIC 1 EACH STRIP IN SCH ×4 (05:31→23:20)
[2023-08-04] MEDS: INSULIN REGULAR, HUMAN 100 UNIT/ML 3 ML VIAL SQ PRN ×2 (05:33→23:25)
[2023-08-04] MEDS: PANTOPRAZOLE 40 MG TABLET.DR PO SCH (07:30)
[2023-08-04 08:09] LABS: BASOPHILS % (AUTO) 0.2 % (0.0-2.0); EOSINOPHILS % (AUTO) 0.5 % (0.0-6.0); HEMATOCRIT 29 % (33-45); HEMOGLOBIN 9.5 g/dL (11.5-14.8); LYMPHOCYTES # (AUTO) 1.3 K/uL (0.8-4.8); LYMPHOCYTES % (AUTO) 13.8 % (20.0-44.0); MEAN CORPUSCULAR HEMOGLOBIN 31 PG (26.0-33.0); MEAN CORPUSCULAR HGB CONC 33 g/dl (31.0-36.0); MEAN CORPUSCULAR VOLUME 94 fL (82-100); MONOCYTES # (AUTO) 1.1 K/uL (0.1-1.30); MONOCYTES % (AUTO) 11.4 % (2.0-12.0); NEUTROPHILS # (AUTO) 7.1 K/uL (1.8-8.9); NEUTROPHILS % (AUTO) 74.1 % (43.0-81.0); PLATELET COUNT (AUTO) 261 K/uL (150-450); RED BLOOD CELL COUNT(AUTO) 3.07 MIL/uL (4.0-5.2); RED CELL DISTRIBUTION WIDTH 17.3 % (11.5-15.0); WHITE BLOOD COUNT (AUTO) 9.6 K/uL (4.3-11.0)
[2023-08-04 08:31] LABS: CALCIUM, SERUM 8.1 mg/dL (8.5-10.1); CHLORIDE 98 mmol/L (98-107); CREATININE 4.6 mg/dL (0.6-1.3); GLUCOSE 134 mg/dL (74-106); POTASSIUM 3.8 mmol/L (3.5-5.1); SODIUM SERUM 132 mmol/L (136-145); UREA NITROGEN, BLOOD 59 mg/dL (7-18)
[2023-08-04 08:42] LABS: CARBON DIOXIDE 22 mmol/L (21-32)
[2023-08-04] MEDS: hydrALAZINE HCL 50 MG TABLET PO SCH ×3 (09:00→17:20)
[2023-08-04] MEDS: MEGESTROL ACETATE SUSP 400 MG/10 ML UDC PO SCH ×2 (09:00→17:20)
[2023-08-04] MEDS: ATORVASTATIN 10 MG TABLET PO SCH (09:00)
[2023-08-04] MEDS: VIT B CMPLX 3/FA/VIT C/BIOTIN 1 TAB TABLET PO SCH (09:00)
[2023-08-04] MEDS: AMIODARONE HCL 200 MG TABLET PO SCH ×2 (09:00→17:20)
[2023-08-04 09:52] LABS: INR 1.03 (0.91-1.10); PARTIAL THROMBOPLASTIN TIME 29.6 SEC (24.3-34.3); PROTHROMBIN TIME 10.9 SECS (9.2-11.1)
[2023-08-04] MEDS: MUPIROCIN OINT 2% 22 GM TUBE NS SCH ×2 (12:18→22:08)
[2023-08-04] MEDS ORDERED: LORAZEPAM 0.5 MG TABLET PO PRN (14:00)
[2023-08-04] MEDS ORDERED: IV SET PRIMARY PUMP SET 1 EA INFUS.SET MC ONE (15:03)
[2023-08-04] MEDS ORDERED: IV NS 0.9% 1,000 ML ONE (15:03)
[2023-08-04] MEDS ORDERED: IODIXANOL 150 ML IV ONE (15:04)
[2023-08-04] MEDS ORDERED: LIDOCAINE HCL/MPF 1% 30 ML VIAL IJ ONE (15:04)
[2023-08-04] MEDS ORDERED: NITROGLYCERIN IN 5 % DEXTROSE 250 ML IV ONE (15:47)
[2023-08-04] MEDS ORDERED: FENTANYL PF 100MCG/2ML AMPUL ONE (16:13)
[2023-08-04] MEDS ORDERED: MIDAZOLAM HCL 2 MG/2ML VIAL ONE (16:13)
[2023-08-05] VITALS: BP 152/66; TEMP 98.2; O2SAT 100
[2023-08-05 04:00] VITALS: BP 129/71; TEMP 98.3; O2SAT 100
[2023-08-05] MEDS: BLOOD SUGAR DIAGNOSTIC 1 EACH STRIP IN SCH ×3 (05:44→18:19)
[2023-08-05] MEDS: INSULIN REGULAR, HUMAN 100 UNIT/ML 3 ML VIAL SQ PRN ×3 (05:45→18:21)
[2023-08-05 06:54] LABS: BASOPHILS % (AUTO) 0.3 % (0.0-2.0); EOSINOPHILS % (AUTO) 0.6 % (0.0-6.0); HEMATOCRIT 28 % (33-45); HEMOGLOBIN 9.2 g/dL (11.5-14.8); LYMPHOCYTES % (AUTO) 13.6 % (20.0-44.0); MEAN CORPUSCULAR HEMOGLOBIN 31 PG (26.0-33.0); MEAN CORPUSCULAR HGB CONC 33 g/dl (31.0-36.0); MEAN CORPUSCULAR VOLUME 93 fL (82-100); MONOCYTES % (AUTO) 13.2 % (2.0-12.0); NEUTROPHILS # (AUTO) 5.4 K/uL (1.8-8.9); NEUTROPHILS % (AUTO) 72.3 % (43.0-81.0); PLATELET COUNT (AUTO) 271 K/uL (150-450); RED BLOOD CELL COUNT(AUTO) 3.02 MIL/uL (4.0-5.2); RED CELL DISTRIBUTION WIDTH 17.4 % (11.5-15.0); WHITE BLOOD COUNT (AUTO) 7.4 K/uL (4.3-11.0)
[2023-08-05 07:37] LABS: CALCIUM, SERUM 8.5 mg/dL (8.5-10.1); CARBON DIOXIDE 24 mmol/L (21-32); CHLORIDE 96 mmol/L (98-107); CREATININE 3.5 mg/dL (0.6-1.3); GLUCOSE 104 mg/dL (74-106); POTASSIUM 3.7 mmol/L (3.5-5.1); SODIUM SERUM 132 mmol/L (136-145); UREA NITROGEN, BLOOD 26 mg/dL (7-18)
[2023-08-05] MEDS: PANTOPRAZOLE 40 MG TABLET.DR PO SCH (07:56)
[2023-08-05 08:00] VITALS: BP 148/61; TEMP 98.1; O2SAT 100
[2023-08-05] MEDS: hydrALAZINE HCL 50 MG TABLET PO SCH ×3 (09:14→18:07)
[2023-08-05] MEDS: MEGESTROL ACETATE SUSP 400 MG/10 ML UDC PO SCH ×2 (09:14→18:08)
[2023-08-05] MEDS: ATORVASTATIN 10 MG TABLET PO SCH (09:15)
[2023-08-05] MEDS: VIT B CMPLX 3/FA/VIT C/BIOTIN 1 TAB TABLET PO SCH (09:15)
[2023-08-05] MEDS: AMIODARONE HCL 200 MG TABLET PO SCH ×2 (09:16→18:08)
[2023-08-05 12:00] VITALS: BP 135/56; TEMP 97.5; O2SAT 98
[2023-08-05] MEDS ORDERED: AMIO200T7 PO (13:38)
[2023-08-05] MEDS ORDERED: ALBU2.5V13 NEB (13:38)
[2023-08-05] MEDS ORDERED: ACET325T53 PO (13:38)
[2023-08-05] MEDS ORDERED: ATOR10TA PO (13:38)
[2023-08-05] MEDS ORDERED: IPRA0.2S9 NEB (13:38)
[2023-08-05] MEDS ORDERED: GUAI5SYR PO (13:38)
[2023-08-05] MEDS ORDERED: Blood Sugar Diagnostic IN (13:38)
[2023-08-05] MEDS ORDERED: ACET1OOV6 NEB (13:38)
[2023-08-05] MEDS ORDERED: VIT1TABL44 PO (13:38)
[2023-08-05] MEDS ORDERED: INSU100V28 SQ (13:38)
[2023-08-05] MEDS ORDERED: DOCU100C36 PO (13:38)
[2023-08-05] MEDS: EPOETIN ALFA (10,000 UNIT) 10,000 UNIT/ML VIAL SQ SCH (14:41)
[2023-08-05 16:00] VITALS: BP 106/54; TEMP 97.7; O2SAT 94
[2023-08-05] MEDS: ACETAMINOPHEN 325 MG TABLET PO PRN (21:23)
[2023-08-05 21:30] VITALS: BP 132/90; TEMP 98; O2SAT 94
[2023-08-06] VITALS: BP 134/60; TEMP 99.8; O2SAT 100
[2023-08-06] MEDS: BLOOD SUGAR DIAGNOSTIC 1 EACH STRIP IN SCH ×2 (00:43→06:26)
[2023-08-06 04:00] VITALS: BP 132/90; TEMP 98.2; O2SAT 100
[2023-08-06 05:07] LABS: BASOPHILS % (AUTO) 0.2 % (0.0-2.0); EOSINOPHILS # (AUTO) 0.1 K/uL (0.0-0.7); EOSINOPHILS % (AUTO) 1.3 % (0.0-6.0); HEMATOCRIT 26 % (33-45); HEMOGLOBIN 8.3 g/dL (11.5-14.8); LYMPHOCYTES % (AUTO) 13.2 % (20.0-44.0); MEAN CORPUSCULAR HEMOGLOBIN 30 PG (26.0-33.0); MEAN CORPUSCULAR HGB CONC 33 g/dl (31.0-36.0); MEAN CORPUSCULAR VOLUME 92 fL (82-100); MONOCYTES # (AUTO) 1.1 K/uL (0.1-1.30); MONOCYTES % (AUTO) 14.6 % (2.0-12.0); NEUTROPHILS # (AUTO) 5.3 K/uL (1.8-8.9); NEUTROPHILS % (AUTO) 70.7 % (43.0-81.0); PLATELET COUNT (AUTO) 259 K/uL (150-450); RED BLOOD CELL COUNT(AUTO) 2.77 MIL/uL (4.0-5.2); RED CELL DISTRIBUTION WIDTH 17.1 % (11.5-15.0); WHITE BLOOD COUNT (AUTO) 7.5 K/uL (4.3-11.0)
[2023-08-06 05:16] LABS: CALCIUM, SERUM 8.1 mg/dL (8.5-10.1); CARBON DIOXIDE 25 mmol/L (21-32); CHLORIDE 99 mmol/L (98-107); CREATININE 2.7 mg/dL (0.6-1.3); GLUCOSE 221 mg/dL (74-106); POTASSIUM 3.3 mmol/L (3.5-5.1); SODIUM SERUM 133 mmol/L (136-145); UREA NITROGEN, BLOOD 17 mg/dL (7-18)
== END 2023-08-06 08:00 | disposition short-term general hospital (02) | DRG 192 ==
LOC: ER 15:49 → TELE1 20:54 → ICU 08-04 17:14 → TELE1 08-04 21:28
PROVIDERS: ADMIT Student in an Organized Health Care Education/Training Program; ATTEND Nurse Practitioner Acute Care
PROC: 5A1D70Z Performance of Urinary Filtration, Intermittent, Less than 6 Hours Per Day (ICD-10-PCS; principal; 2023-07-28)
PROC: 05H533Z Insertion of Infusion Device into Right Subclavian Vein, Percutaneous Approach (ICD-10-PCS; 2023-07-30)
PROC: B546ZZA Ultrasonography of Right Subclavian Vein, Guidance (ICD-10-PCS; 2023-07-30)
PROC: 4A023N7 Measurement of Cardiac Sampling and Pressure, Left Heart, Percutaneous Approach (ICD-10-PCS; 2023-08-04)
PROC: B211YZZ Fluoroscopy of Multiple Coronary Arteries using Other Contrast (ICD-10-PCS; 2023-08-04)
DX: I48.0 Paroxysmal atrial fibrillation (principal); I21.A1 Myocardial infarction type 2; I50.23 Acute on chronic systolic (congestive) heart failure; E44.0 Moderate protein-calorie malnutrition; N18.6 End stage renal disease; R65.10 Systemic inflammatory response syndrome (SIRS) of non-infectious origin without acute organ dysfunction; E87.1 Hypo-osmolality and hyponatremia; E11.22 Type 2 diabetes mellitus with diabetic chronic kidney disease; D64.9 Anemia, unspecified; D72.829 Elevated white blood cell count, unspecified; I25.10 Atherosclerotic heart disease of native coronary artery without angina pectoris; I13.2 Hypertensive heart and chronic kidney disease with heart failure and with stage 5 chronic kidney disease, or end stage renal disease; E78.5 Hyperlipidemia, unspecified; J98.11 Atelectasis; Z79.82 Long term (current) use of aspirin; Z79.4 Long term (current) use of insulin; Z99.2 Dependence on renal dialysis; R53.1 Weakness; M89.8X9 Other specified disorders of bone, unspecified site; I08.0 Rheumatic disorders of both mitral and aortic valves; Z68.21 Body mass index [BMI] 21.0-21.9, adult
CPT/HCPCS: 36410; 36415; 71045-TC; 80048-TC; 80053-TC; 80061-TC; 80076-TC; 82962-TC; 83735-TC; 84100-TC; 84443-TC; 84484-TC; 85025-TC; 85610-TC; 85730-TC; 87081-TC; 90935-TC; 93307-TC; 94799-TC; 97110-TC; 97116-TC; 97530-TC; A4223; C1887; C1894; G0378; G0500; J0282; J0885; J1644; J1650; J1815; J2250; J2405; J3010; J3490; J7030; J7050; J7060; Q9967

== ENCOUNTER 2023-12-01 07:38 | Day surgery (SDC) | payer OTHER ==
[~2023-12-01 07:38] MED LIST changes: +ACET1OOV6 NEB; +ACET325T53 PO; +ALBU2.5V13 NEB; +ALBU2.5V38 IH; +AMIO200T7 PO; -AMLO10TA4 PO; +ASPI-1169 PO; +ATOR10TA PO; +Blood Sugar Diagnostic IN; +DOCU-141 PO; +DOCU100C36 PO; +EPOE1VIA7 SQ; -GLIP5TAB13 PO; +GUAI5SYR PO; +HYDR-4077 PO; +INSU100V28 SQ; +INSU100V3 SQ; +INSU100V7 SQ; +IPRA0.2S9 IH; +IPRA0.2S9 NEB; +MEGE400O5 PO; +METO25TA20 PO; +NITR0.4T48 SL; +PANT40TA2 PO; +POLY17PO4 PO; -PRAV10TA40 PO; -TRIA1CAP20 PO; +VIT1TABL44 PO; +ZINC170P TP
[2023-12-01 09:40] LABS: CALCIUM, SERUM 8.5 mg/dL (8.5-10.1); CARBON DIOXIDE 23 mmol/L (21-32); CHLORIDE 96 mmol/L (98-107); CREATININE 4.1 mg/dL (0.6-1.3); GLUCOSE 123 mg/dL (74-106); SODIUM SERUM 128 mmol/L (136-145); UREA NITROGEN, BLOOD 29 mg/dL (7-18)
[2023-12-01 09:42] LABS: INR 0.94 (0.91-1.10); PARTIAL THROMBOPLASTIN TIME 29.6 SEC (24.3-34.3)
[2023-12-01 09:44] LABS: POTASSIUM 6.2 mmol/L (3.5-5.1)
[2023-12-01] MEDS ORDERED: CELLULOSE,OXIDIZED 1 EACH EACH MC ONE (10:14)
[2023-12-01] MEDS ORDERED: CELLULOSE,OXIDIZED 1 EA PACK MC ONE (10:14)
[2023-12-01] MEDS ORDERED: ROPIVACAINE HCL 0.5% 5 MG/ML 30ML VIAL ONE ×2 (10:14→10:30)
[2023-12-01] MEDS ORDERED: LIDOCAINE 1% INJ 50 ML MDV IJ ONE (10:14)
[2023-12-01] MEDS ORDERED: FENTANYL PF 100MCG/2ML AMPUL ONE (10:29)
[2023-12-01] MEDS ORDERED: MIDAZOLAM HCL 2 MG/2ML VIAL ONE (10:29)
== END 2023-12-01 13:00 ==
LOC: DS 07:38
PROVIDERS: ATTEND Surgery Vascular Surgery
DX: E11.22 Type 2 diabetes mellitus with diabetic chronic kidney disease (principal); K21.9 Gastro-esophageal reflux disease without esophagitis; N18.6 End stage renal disease; I25.10 Atherosclerotic heart disease of native coronary artery without angina pectoris; Z98.890 Other specified postprocedural states; Z79.899 Other long term (current) drug therapy
CPT/HCPCS: 36415; 36821; 80048; 82962; 85610; 85730; J0690; J1644; J2250; J2704; J2795; J3010; J3490

== ENCOUNTER 2023-12-18 09:43 | Inpatient (IN) | payer OTHER ==
[2023-12-18] VITALS (19 sets, daily range): BP systolic 110–159; BP diastolic 36–74; TEMP 97.9–98; O2SAT 96–99
[~2023-12-18] VITALS: Ht 157.5 cm; Wt 52.2 kg
[2023-12-18] MEDS ORDERED: ONDANSETRON HCL/PF 4 MG/2 ML VIAL ONE (09:59)
[2023-12-18] MEDS: ONDANSETRON HCL/PF - ER 4 MG/2 ML VIAL IV ONE (10:00)
[2023-12-18 10:39] LABS: BASOPHILS # (AUTO) 0.1 K/uL (0.0-0.2); BASOPHILS % (AUTO) 0.5 % (0.0-2.0); EOSINOPHILS # (AUTO) 0.1 K/uL (0.0-0.7); EOSINOPHILS % (AUTO) 0.9 % (0.0-6.0); HEMATOCRIT 31 % (33-45); HEMOGLOBIN 9.9 g/dL (11.5-14.8); LYMPHOCYTES # (AUTO) 1.4 K/uL (0.8-4.8); LYMPHOCYTES % (AUTO) 10.3 % (20.0-44.0); MEAN CORPUSCULAR HEMOGLOBIN 28 PG (26.0-33.0); MEAN CORPUSCULAR HGB CONC 32 g/dl (31.0-36.0); MEAN CORPUSCULAR VOLUME 88 fL (82-100); MONOCYTES # (AUTO) 1.4 K/uL (0.1-1.30); MONOCYTES % (AUTO) 9.9 % (2.0-12.0); NEUTROPHILS # (AUTO) 10.9 K/uL (1.8-8.9); NEUTROPHILS % (AUTO) 78.4 % (43.0-81.0); PLATELET COUNT (AUTO) 252 K/uL (150-450); RED CELL DISTRIBUTION WIDTH 16.9 % (11.5-15.0); WHITE BLOOD COUNT (AUTO) 13.9 K/uL (4.3-11.0)
[2023-12-18] MEDS ORDERED: AMIO100T4 PO (10:58)
[2023-12-18] MEDS ORDERED: AMIN30LI2 PO (10:58)
[2023-12-18] MEDS ORDERED: FOLI0.8T2 PO (10:58)
[2023-12-18] MEDS ORDERED: SENN-18 PO (10:58)
[2023-12-18] MEDS ORDERED: CRAN3875 PO (10:58)
[2023-12-18] MEDS ORDERED: GUAI5SYR PO (10:58)
[2023-12-18] MEDS ORDERED: SEVE800T7 PO (10:58)
[2023-12-18] MEDS ORDERED: HYDR-4076 PO (10:58)
[2023-12-18] MEDS ORDERED: APIX2.5T PO (10:58)
[2023-12-18] MEDS ORDERED: LOSA50TA39 PO (10:58)
[2023-12-18] MEDS ORDERED: GLUC1KIT IM (10:58)
[2023-12-18] MEDS ORDERED: CARV3.122 PO (10:58)
[2023-12-18] MEDS ORDERED: ATOR10TA PO (10:58)
[2023-12-18] MEDS ORDERED: CLOP75TA15 PO (10:58)
[2023-12-18 11:06] LABS: SERUM AMMONIA 33 umol/L (11-32)
[2023-12-18 11:08] LABS: CALCIUM, SERUM 7.5 mg/dL (8.5-10.1); CARBON DIOXIDE 24 mmol/L (21-32); CHLORIDE 98 mmol/L (98-107); CREATININE 4.1 mg/dL (0.6-1.3); GLUCOSE 250 mg/dL (74-106); POTASSIUM 3.3 mmol/L (3.5-5.1); SODIUM SERUM 136 mmol/L (136-145); UREA NITROGEN, BLOOD 36 mg/dL (7-18)
[2023-12-18 11:13] LABS: INR 1.15 (0.91-1.10); PARTIAL THROMBOPLASTIN TIME 32.8 SEC (24.3-34.3); PROTHROMBIN TIME 12.1 SECS (9.2-11.1)
[2023-12-18 11:15] LABS: ALANINE AMINOTRANSFERASE 34 U/L (12-78); ALBUMIN 2.2 g/dL (3.4-5.0); ALCOHOL, BLOOD < 3 mg/dL (0-10); ALKALINE PHOSPHATASE 222 U/L (46-116); ASPARTATE AMINOTRANSFERASE 45 U/L (15-37); BILIRUBIN,DIRECT 0.4 mg/dL (0.0-0.2); BILIRUBIN,TOTAL 0.8 mg/dL (0.2-1.0); SALICYLATE 0.2 mg/dL (2.8-20.0); TOTAL PROTEIN, SERUM 5.8 g/dL (6.4-8.2)
[2023-12-18 11:46] LABS: THYROID STIMULATING HORMONE 2.026 uIU/mL (0.358-3.74)
[2023-12-18] MEDS ORDERED: Z GUARD REMEDY 4 OZ OINT TP PRN (15:30)
[2023-12-18] MEDS ORDERED: ACETAMINOPHEN 650 MG/SUPP.RECT RC PRN (15:30)
[2023-12-18] MEDS ORDERED: ACETAMINOPHEN 325 MG TABLET PO PRN (15:30)
[2023-12-18] MEDS: CEFEPIME 1 GM in IV D5W 50 ML IV SCH (16:48)
[2023-12-18] MEDS: VANCOMYCIN 1 GM in IV D5W 250ml IV ONE (17:47)
[2023-12-18] MEDS ORDERED: DEXTROSE 50%-WATER 50 ML DISP.SYRIN IV PRN (18:30)
[2023-12-18] MEDS: HEPARIN SODIUM, PORCINE 5000 UNITS/1 ML VIAL SQ SCH (21:40)
[2023-12-18] MEDS: *INSULIN REGULAR(HUMULIN R)HUM 100 UNIT/ML VIAL SQ PRN (21:42)
[2023-12-18] MEDS: BLOOD SUGAR DIAGNOSTIC 1 EACH STRIP VI SCH (21:50)
[2023-12-19] VITALS (30 sets, daily range): BP systolic 69–155; BP diastolic 34–75; TEMP 97.4–98.7; O2SAT 95–100
[2023-12-19 05:10] LABS: BASOPHILS # (AUTO) 0.1 K/uL (0.0-0.2); BASOPHILS % (AUTO) 0.7 % (0.0-2.0); EOSINOPHILS # (AUTO) 0.1 K/uL (0.0-0.7); EOSINOPHILS % (AUTO) 0.6 % (0.0-6.0); HEMATOCRIT 30 % (33-45); HEMOGLOBIN 9.7 g/dL (11.5-14.8); LYMPHOCYTES # (AUTO) 0.8 K/uL (0.8-4.8); LYMPHOCYTES % (AUTO) 8.1 % (20.0-44.0); MEAN CORPUSCULAR HEMOGLOBIN 28 PG (26.0-33.0); MEAN CORPUSCULAR HGB CONC 32 g/dl (31.0-36.0); MEAN CORPUSCULAR VOLUME 89 fL (82-100); MONOCYTES # (AUTO) 1.5 K/uL (0.1-1.30); MONOCYTES % (AUTO) 14.7 % (2.0-12.0); NEUTROPHILS # (AUTO) 7.8 K/uL (1.8-8.9); NEUTROPHILS % (AUTO) 75.9 % (43.0-81.0); PLATELET COUNT (AUTO) 227 K/uL (150-450); WHITE BLOOD COUNT (AUTO) 10.3 K/uL (4.3-11.0)
[2023-12-19 06:18] LABS: CALCIUM, SERUM 7.9 mg/dL (8.5-10.1); CARBON DIOXIDE 26 mmol/L (21-32); CHLORIDE 95 mmol/L (98-107); CREATININE 5.5 mg/dL (0.6-1.3); GLUCOSE 180 mg/dL (74-106); MAGNESIUM 2.1 mg/dL (1.8-2.4); PHOSPHORUS 6.3 mg/dL (2.5-4.9); POTASSIUM 4.2 mmol/L (3.5-5.1); SODIUM SERUM 129 mmol/L (136-145); UREA NITROGEN, BLOOD 49 mg/dL (7-18)
[2023-12-19 06:23] LABS: CHOLESTEROL 91 mg/dL (<200); HDL CHOLESTEROL 52 mg/dL (40-60); LDL 37 mg/dL (0-99); THYROID STIMULATING HORMONE 1.495 uIU/mL (0.358-3.74); TRIGLYCERIDES 30 mg/dL (30-150)
[2023-12-19] MEDS: ONDANSETRON HCL/PF 4 MG/2 ML VIAL IVP PRN (08:09)
[2023-12-19] MEDS: PANTOPRAZOLE 40 MG VIAL IV SCH (08:24)
[2023-12-19] MEDS: CLOPIDOGREL BISULFATE 75 MG TABLET PO SCH (10:35)
[2023-12-19] MEDS: SEVELAMER CARBONATE 800 MG TABLET PO SCH (13:43)
[2023-12-19] MEDS: INSULIN REGULAR, HUMAN 100 UNIT/ML 3 ML VIAL SQ PRN (17:42)
[2023-12-19] MEDS: VANCOMYCIN POST DIALYSIS 500MG IV PRN (19:24)
[2023-12-19] MEDS: ATORVASTATIN 10 MG TABLET PO SCH (21:08)
[2023-12-20] VITALS (39 sets, daily range): BP systolic 112–171; BP diastolic 40–118; TEMP 97.7–98.9; O2SAT 90–100
[2023-12-20] MEDS: LIDOCAINE 5% (PATCH) 1 EA PATCH TP SCH (00:54)
[2023-12-20 04:56] LABS: BASOPHILS # (AUTO) 0.1 K/uL (0.0-0.2); BASOPHILS % (AUTO) 0.8 % (0.0-2.0); EOSINOPHILS # (AUTO) 0.2 K/uL (0.0-0.7); EOSINOPHILS % (AUTO) 1.5 % (0.0-6.0); HEMATOCRIT 35 % (33-45); HEMOGLOBIN 10.4 g/dL (11.5-14.8); LYMPHOCYTES # (AUTO) 0.9 K/uL (0.8-4.8); LYMPHOCYTES % (AUTO) 6.2 % (20.0-44.0); MEAN CORPUSCULAR HEMOGLOBIN 28 PG (26.0-33.0); MEAN CORPUSCULAR HGB CONC 30 g/dl (31.0-36.0); MEAN CORPUSCULAR VOLUME 95 fL (82-100); MONOCYTES # (AUTO) 2.2 K/uL (0.1-1.30); MONOCYTES % (AUTO) 15.8 % (2.0-12.0); NEUTROPHILS # (AUTO) 10.5 K/uL (1.8-8.9); NEUTROPHILS % (AUTO) 75.7 % (43.0-81.0); PLATELET COUNT (AUTO) 199 K/uL (150-450); RED BLOOD CELL COUNT(AUTO) 3.66 MIL/uL (4.0-5.2); WHITE BLOOD COUNT (AUTO) 13.8 K/uL (4.3-11.0)
[2023-12-20 05:14] LABS: CALCIUM, SERUM 7.5 mg/dL (8.5-10.1); CARBON DIOXIDE 27 mmol/L (21-32); CHLORIDE 94 mmol/L (98-107); CREATININE 4.3 mg/dL (0.6-1.3); GLUCOSE 144 mg/dL (74-106); MAGNESIUM 2.3 mg/dL (1.8-2.4); PHOSPHORUS 4.1 mg/dL (2.5-4.9); POTASSIUM 3.7 mmol/L (3.5-5.1); SODIUM SERUM 131 mmol/L (136-145); UREA NITROGEN, BLOOD 36 mg/dL (7-18)
[2023-12-20] MEDS: PANTOPRAZOLE 40 MG TABLET.DR PO SCH (08:32)
[2023-12-20] MEDS: NITROGLYCERIN 30 GM TUBE TP SCH (12:52)
[2023-12-21] VITALS (24 sets, daily range): BP systolic 99–155; BP diastolic 40–88; TEMP 98–98.7; O2SAT 92–98
[2023-12-21 02:06] LABS: HEPATITIS B SURFACE AB Non Reactive (.)
[2023-12-21] MEDS: NITROGLYCERIN 0.4 MG/TAB BOTTLE SL PRN (04:32)
[2023-12-21 04:53] LABS: BASOPHILS % (AUTO) 0.4 % (0.0-2.0); EOSINOPHILS # (AUTO) 0.1 K/uL (0.0-0.7); EOSINOPHILS % (AUTO) 0.8 % (0.0-6.0); HEMATOCRIT 30 % (33-45); HEMOGLOBIN 9.4 g/dL (11.5-14.8); LYMPHOCYTES # (AUTO) 0.6 K/uL (0.8-4.8); LYMPHOCYTES % (AUTO) 4.4 % (20.0-44.0); MEAN CORPUSCULAR HEMOGLOBIN 28 PG (26.0-33.0); MEAN CORPUSCULAR HGB CONC 31 g/dl (31.0-36.0); MEAN CORPUSCULAR VOLUME 88 fL (82-100); MONOCYTES # (AUTO) 1.7 K/uL (0.1-1.30); MONOCYTES % (AUTO) 13.9 % (2.0-12.0); NEUTROPHILS # (AUTO) 10.2 K/uL (1.8-8.9); NEUTROPHILS % (AUTO) 80.5 % (43.0-81.0); PLATELET COUNT (AUTO) 221 K/uL (150-450); RED CELL DISTRIBUTION WIDTH 16.9 % (11.5-15.0); WHITE BLOOD COUNT (AUTO) 12.6 K/uL (4.3-11.0)
[2023-12-21 05:17] LABS: CALCIUM, SERUM 8.4 mg/dL (8.5-10.1); CARBON DIOXIDE 28 mmol/L (21-32); CHLORIDE 97 mmol/L (98-107); CREATININE 5.4 mg/dL (0.6-1.3); GLUCOSE 145 mg/dL (74-106); PHOSPHORUS 4.4 mg/dL (2.5-4.9); POTASSIUM 4.1 mmol/L (3.5-5.1); SODIUM SERUM 133 mmol/L (136-145); UREA NITROGEN, BLOOD 45 mg/dL (7-18)
== END 2023-12-21 21:30 | disposition short-term general hospital (02) | DRG 201 ==
LOC: ER 09:45 → TRANSITION 14:27 → ICU 15:59
PROVIDERS: ADMIT Nurse Practitioner Family; ATTEND Nurse Practitioner Acute Care
PROC: 06HM33Z Insertion of Infusion Device into Right Femoral Vein, Percutaneous Approach (ICD-10-PCS; 2023-12-18)
PROC: B54BZZA Ultrasonography of Right Lower Extremity Veins, Guidance (ICD-10-PCS; 2023-12-18)
PROC: 5A1D70Z Performance of Urinary Filtration, Intermittent, Less than 6 Hours Per Day (ICD-10-PCS; principal; 2023-12-19)
DX: I48.91 Unspecified atrial fibrillation (principal); J96.01 Acute respiratory failure with hypoxia; G93.41 Metabolic encephalopathy; I50.23 Acute on chronic systolic (congestive) heart failure; I21.A1 Myocardial infarction type 2; E44.0 Moderate protein-calorie malnutrition; E87.1 Hypo-osmolality and hyponatremia; D63.1 Anemia in chronic kidney disease; E88.09 Other disorders of plasma-protein metabolism, not elsewhere classified; R65.10 Systemic inflammatory response syndrome (SIRS) of non-infectious origin without acute organ dysfunction; I13.2 Hypertensive heart and chronic kidney disease with heart failure and with stage 5 chronic kidney disease, or end stage renal disease; I49.5 Sick sinus syndrome; I45.9 Conduction disorder, unspecified; N18.6 End stage renal disease; I95.9 Hypotension, unspecified; E11.22 Type 2 diabetes mellitus with diabetic chronic kidney disease; E78.5 Hyperlipidemia, unspecified; E87.6 Hypokalemia; I25.10 Atherosclerotic heart disease of native coronary artery without angina pectoris; K21.9 Gastro-esophageal reflux disease without esophagitis; Z79.4 Long term (current) use of insulin; Z86.73 Personal history of transient ischemic attack (TIA), and cerebral infarction without residual deficits; Z95.0 Presence of cardiac pacemaker; Z95.5 Presence of coronary angioplasty implant and graft; J98.11 Atelectasis; Z99.2 Dependence on renal dialysis; I25.2 Old myocardial infarction; N25.0 Renal osteodystrophy; Z79.01 Long term (current) use of anticoagulants; Z79.02 Long term (current) use of antithrombotics/antiplatelets
CPT/HCPCS: 36410; 36415; 36600; 70450-TC; 71045-TC; 80048-TC; 80061-TC; 80076-TC; 80202-TC; 82140-TC; 82803-TC; 82962-TC; 83605-TC; 83735-TC; 84100-TC; 84443-TC; 84484-TC; 85025-TC; 85730-TC; 86706; 87040-TC; 87081-TC; 87340; 90935-TC; 92526; 92611-TC; 93307-TC; 94799-TC; A4223; C9113; G0378; G0480; J0692; J1644; J1815; J2405; J3370; J7030; J7050; J7060